=== PATIENT | male | born 1985 | race Caucasian/White ===

== ENCOUNTER → 2022-05-06 07:11 | Outpatient (CLI) | payer BC, SELFPAY ==
[2022-05-06 07:55] LABS: Basophils # 0.1 K/mm3 (0-0.2); Basophils % 1.4 % (0.1-2.0); Eosinophils # 0.1 K/mm3 (0.0-0.4); Hematocrit 47.7 % (42.0-52.0); Hemoglobin 15.4 g/dL (14.1-18.0); Lymphocytes # 1.1 K/mm3 (0.7-4.5); Lymphocytes % 21.4 % (10-50); Mean Corpuscular HGB Conc 32.3 g/dL (31.8-35.4); Mean Corpuscular Hemoglobin 27.7 pg (27.0-31.2); Mean Corpuscular Volume 85.7 fl (80-94); Mean Platelet Volume 7.2 fl (7.4-10.4); Monocytes # 0.3 K/mm3 (0.1-1.0); Monocytes % 5.3 % (1.7-9.3); Neutrophils # 3.8 K/mm3 (1.8-7.8); Platelet Count 311 K/mm3 (142-424); Red Blood Count 5.56 M/mm3 (4.60-6.20); Red Cell Distribution Width 13.9 % (11.5-17.5); White Blood Count 5.4 K/mm3 (4.8-10.8)
[2022-05-06 09:01] LABS: Alanine Aminotransferase 60 U/L (12-78); Albumin Level 4.3 g/dl (3.5-5.0); Albumin/Globulin Ratio 1.5 (1.1-1.8); Alkaline Phosphatase 65 U/L (38-126); Anion Gap 13.1 mEq/L (5-15); Aspartate Amino Transferase 33 U/L (17-59); Bilirubin,Total 0.4 mg/dl (0.2-1.3); Blood Urea Nitrogen 14 mg/dl (9-20); Calcium 8.7 mg/dl (8.4-10.2); Carbon Dioxide 25 mmol/L (22.0-30.0); Chloride 106 mmol/L (98-107); Estimated Glomerular Filt Rate 109 ml/min (>60); GFR (African American) 132 ML/MIN (>60); Globulin 2.8 g/dL (1.3-3.2); Glucose 137 mg/dl (74-100); Potassium 4.1 mmoL/L (3.5-5.1); Sodium 140 mmol/L (136-145); Total Protein,Serum 7.1 g/dl (6.3-8.2)
[2022-05-06 09:18] LABS: Free Thyroxine Index 2.8 ug/dL (5.93-13.13); T4 (Thyroxine) 8.8 ug/dl (5.53-11.0); Triiodothryronine (T3) Uptake 32 % (23.5-40.5)
[2022-05-06 10:59] LABS: Thyroid Stimulating Hormone 1.44 uIU/mL (0.465-4.68)
== END ==
PROVIDERS: PCP Internal Medicine Adolescent Medicine; Visit Provider Internal Medicine Adolescent Medicine
DX: R42 Dizziness and giddiness (principal); I16.0 Hypertensive urgency; R61 Generalized hyperhidrosis
CPT/HCPCS: 36415; 80053; 82533; 84436; 84443; 84479; 85025

== ENCOUNTER 2022-11-07 17:23 | Emergency (ER) | payer BC, SELFPAY ==
[2022-11-07 17:24] VITALS: BP 183/114; PULSE 80; RESP 17; TEMP 36.4; O2SAT 95; BMI 38.6
--- NOTE | 2022-11-07 17:36 | XR_ITS ---
PROCEDURE INFORMATION: Exam: XR Left Wrist Exam date and time: 11/07/2022 5:56 PM Age: 37 years old Clinical indication: Injury or trauma; Fall; Blunt trauma (contusions or hematomas); Wrist; Left; Additional info: Pain TECHNIQUE: Imaging protocol: Radiologic exam of the left wrist. Views: 3 or more views. COMPARISON: No relevant prior studies available. FINDINGS: Bones/joints: Mild degenerative changes of scaphoid multangular joint. Mild degenerative changes of radiocarpal joint. No acute cortical disruption. Normal bony density. Soft tissues: Normal. IMPRESSION: No acute radiographic findings identified.
--- NOTE | 2022-11-07 17:45 | EXP.UTC ---
Discharge Plan Disposition Patient Disposition: Home, Self-Care Condition: Good Referrals Follow up/Referrals: Martinez Sinha JR, MD [Physician] - See instructions Fortino Hussein MD [Primary Care Provider] - See instructions Activity Restrictions/Add. Instructions Additional Instructions/Restrictions: Rest the extremity, apply ice for 15 minutes as tolerated three or four times per day, Wear the lance wrap for compression, Elevate the extremity as tolerated while you are resting. Take ibuprofen for pain. Follow up with Dr. Sinha (orthopedics). I put in a referral but you need to call his office and schedule an appointment. Follow up with your regular doctor. GO TO THE ER FOR ANY WORSENING SYMPTOMS Clinical Impressions Clinical Impression: Right wrist sprain Instructions Patient Instructions: Wrist Sprain, DI for Wrist Sprain, How to Apply an Elastic Wrap on Wrist Discharge ED Provider: Alessandro Lopez [facility] General Stated complaint: AO7/15 Lt wrist injury Mode of Arrival: Ambulatory Source of Information: Patient Limitations: No Limitations Time Seen by Provider: 11/07/22 17:45 Description of Symptoms (Recalled from Triage Doc. by RN): Patient reports hurting his left wrist while playing ball last night. HEENT Symptoms (Recalled from RN notes): No Resp Symptoms (Recalled from RN notes): No Skin Symptoms (Recalled from RN notes): No MS Symptoms (Recalled from RN notes): Yes Functional Status (Recalled from RN notes): wnl History of Present Illness Provider Complaint: He states that earlier today he was playing soft ball and slid into a base. Some how he got his right wrist twisted under him while doing this. He has had right wrist pain since then. Flexing the wrist makes his pain worse. Related Data Allergies Allergy/AdvReac Type Severity Reaction Status Date / Time No Known Allergies Allergy Unverified 05/07/19 08:36 Worker's Comp Is this a Worker's Comp case?: No [facility] Disclaimer: The information contained in this section may have been updated after the patient was seen, as this information can be updated by other users. Social History Smoking Status: Current every day smoker tobacco type: cigarettes alcohol intake: never current occupational status: employed Travel in the last 8 weeks: None ROS Obtained: Yes All systems reviewed & no additional complaints except as documented Constitutional Constitutional: Denies chills and Denies fever(s) Eyes Eyes: Denies eye discharge ENT Ears, Nose, Mouth, and Throat: Denies dizziness, Denies otalgia and Denies sore throat Cardiovascular Cardiovascular: Denies chest pain Respiratory Respiratory: Denies shortness of breath, Denies chest congestion, Denies cough, Denies stridor and Denies wheezing Gastrointestinal Gastrointestingal: Denies nausea or vomiting Musculoskeletal Musculoskeletal: Reports as per HPI Integumentary/Breasts Skin/Breast: Denies rash Neurologic Neurologic: Denies dizziness and Denies paresthesias Allergic/Immunologic Allergic/Immunologic: Denies wheezing Physical Exam General General appearance: alert and in no apparent distress Head Head exam: atraumatic, normocephalic and normal inspection Eye Eye exam: Present normal appearance, PERRL and EOMI ENT ENT exam: Present normal exam, normal oropharynx, mucous membranes moist, TM's normal bilaterally and normal external ear exam Neck Neck exam: Present normal inspection, full ROM and trachea midline; Absent meningismus or lymphadenopathy Chest Chest inspection: Present normal inspection and symmetric chest wall rise; Absent tenderness Respiratory Respiratory exam: Present normal lung sounds bilaterally; Absent respiratory distress Cardiovascular Cardiovascular exam: Present regular rate and normal rhythm; Absent JVD Abdominal Exam Abdominal exam: Present soft and normal bowel sounds; Absent distention, tenderness or guarding Extremities Exam Extremities exam:
[2022-11-07 18:30] VITALS: BP 183/114; PULSE 80; RESP 17; TEMP 36.4; O2SAT 95
== END 2022-11-07 18:31 | disposition home or self-care (01) ==
PROVIDERS: Emergency Provider Nurse Practitioner Family; PCP Internal Medicine Adolescent Medicine
DX: S63.502A Unspecified sprain of left wrist, initial encounter (principal); F17.210 Nicotine dependence, cigarettes, uncomplicated; Y93.69 Activity, other involving other sports and athletics played as a team or group; X50.1XXA Overexertion from prolonged static or awkward postures, initial encounter
CPT/HCPCS: 73110; 99204; 99212; G0463

== ENCOUNTER 2023-07-12 09:13 | Emergency (ER) | payer BC, SELFPAY ==
[2023-07-12 09:40] VITALS: BP 144/84; PULSE 87; RESP 18; TEMP 36.8; O2SAT 98; BMI 37.5
--- NOTE | 2023-07-12 09:45 | PC.NURSE ---
Sent rapid to lab via tube
[2023-07-12 09:46] LABS: Coronavirus 19, PCR Not Detected (NotDetected); Influenza A, PCR Not Detected (NotDetected); Influenza B, PCR Not Detected (NotDetected)
--- NOTE | 2023-07-12 09:48 | ED_ITS ---
Discharge Plan Disposition Patient Disposition: Home, Self-Care Condition: Good Prescriptions Prescriptions: No Action hydrochlorothiazide 50 mg tablet 50 mg PO DAILY Patient Comments: TAKE 1 TABLET BY MOUTH ONCE DAILY lisinopril 40 mg tablet 40 mg PO DAILY Patient Comments: TAKE 1 TABLET BY MOUTH TWICE DAILY Referrals Follow up/Referrals: Fortino Hussein MD [Primary Care Provider] - See instructions Activity Restrictions/Add. Instructions Additional Instructions/Restrictions: Drink plenty of fluids. Take tylenol for pain or fever. Return if you begin to have difficulty breathing. Follow up with your regular doctor. GO TO THE ER FOR ANY WORSENING SYMPTOMS Clinical Impressions Clinical Impression: Acute viral syndrome, Exposure to 2019 novel coronavirus, Exposure to influenza Stand Alone Forms Stand Alone Forms: Work/School Release Instructions Patient Instructions: Coronavirus Disease 2019, Preventing the Spread of Coronavirus Discharge Instructions Discharge ED Provider: Alessandro Lopez [facility] General Stated complaint: congestion, weak Mode of Arrival: Ambulatory Source of Information: Patient Limitations: No Limitations Time Seen by Provider: 07/12/23 09:47 Description of Symptoms (Recalled from Triage Doc. by RN): Pt was exposed and want to be tested for covid, and flu. HEENT Symptoms (Recalled from RN notes): Yes Resp Symptoms (Recalled from RN notes): No Skin Symptoms (Recalled from RN notes): No MS Symptoms (Recalled from RN notes): No Functional Status (Recalled from RN notes): n/a Related Data Home Medications Medication Instructions Recorded Confirmed hydrochlorothiazide 50 mg tablet 50 mg PO DAILY 07/12/23 07/12/23 lisinopril 40 mg tablet 40 mg PO DAILY 07/12/23 07/12/23 Allergies Allergy/AdvReac Type Severity Reaction Status Date / Time No Known Allergies Allergy Verified 07/12/23 09:44 Worker's Comp Is this a Worker's Comp case?: No [facility] Disclaimer: The information contained in this section may have been updated after the patient was seen, as this information can be updated by other users. Social History Smoking Status: Current every day smoker tobacco type: cigarettes alcohol intake: never current occupational status: employed Travel in the last 8 weeks: None ROS Obtained: Yes All systems reviewed & no additional complaints except as documented Constitutional Constitutional: Reports chills and Reports fever(s) Eyes Eyes: Denies eye discharge ENT Ears, Nose, Mouth, and Throat: Reports as per HPI Cardiovascular Cardiovascular: Denies chest pain Respiratory Respiratory: Denies chest congestion and Reports cough Gastrointestinal Gastrointestingal: Reports nausea; Denies abdominal pain, constipation, cramp ing, diarrhea or vomiting Musculoskeletal Musculoskeletal: Denies arthralgias Integumentary/Breasts Skin/Breast: Denies rash Neurologic Neurologic: Denies paresthesias Physical Exam General General appearance: alert and in no apparent distress Head Head exam: atraumatic, normocephalic and normal inspection Eye Eye exam: Present normal appearance, PERRL and EOMI ENT ENT exam: Present normal exam, normal oropharynx, mucous membranes moist, TM's normal bilaterally and normal external ear exam Neck Neck exam: Present normal inspection, full ROM and trachea midline; Absent meningismus or lymphadenopathy Chest Chest inspection: Present normal inspection and symmetric chest wall rise; Absent tenderness Respiratory Respiratory exam: Present normal lung sounds bilaterally; Absent respiratory distress Cardiovascular Cardiovascular exam: Present regular rate and normal rhythm; Absent JVD Abdominal Exam Abdominal exam: Present soft and normal bowel sounds; Absent distention, tenderness or guarding Extremities Exam Extremities exam: Present normal inspection, full ROM and normal capillary refill; Absent calf tenderness Back Exam Back exam: Present normal inspection; Absent tenderness Neurological Exam Neurological exam: Present alert and oriented X3 Psychiatric Psychiatric exam: Present normal affect and normal mood Skin Skin exam: Present warm, dry, intact and normal color Lymphatic Lymphatic Findings: no adenopathy Medical Decision Making Medical Records Medical records reviewed: No I reviewed the patient's medical records. Angel Inquiry Pt receiving controlled substance: No Vital Signs: 07/12/23 09:40 Temperature 98.3 F Temperature Source Oral Pulse Rate [Right Radial] 87 Respiratory Rate 18 Blood Pressure [Right Arm] 144/84 H Blood Pressure Mean [Right Arm] 104 Blood Pressure Source [Right Arm] Automatic Cuff Blood Pressure Position [Right Arm] Sitting 02 Sat by Pulse Oximetry 98 Oxygen Delivery Method Room Air Lab Data Lab results reviewed: Yes I reviewed the patient's lab results. Orders (Tests/Meds): ORDERS Category Date Time Status Rapid PCR Covid and Flu A/B Stat Lab 07/12/23 09:34 Received
[2023-07-12 10:02] LABS: UTC Influenza A Antigen Negative (Negative)
[2023-07-12 10:03] LABS: UTC Influenza B Antigen Negative (Negative)
[2023-07-12 10:13] VITALS: BP 144/84; PULSE 87; RESP 18; TEMP 36.8; O2SAT 98
== END 2023-07-12 10:12 | disposition home or self-care (01) ==
PROVIDERS: Emergency Provider Nurse Practitioner Family; PCP Internal Medicine Adolescent Medicine
DX: B34.9 Viral infection, unspecified (principal); R09.81 Nasal congestion; R53.1 Weakness; F17.210 Nicotine dependence, cigarettes, uncomplicated
CPT/HCPCS: 87636; 87804; 99212; 99213; G0463

== ENCOUNTER 2024-01-14 10:25 | Emergency (ER) | payer BC, SELFPAY ==
[2024-01-14 10:50] VITALS: BP 162/109; PULSE 84; RESP 16; TEMP 36.9; O2SAT 96; BMI 37.8
--- NOTE | 2024-01-14 10:54 | ED_ITS ---
Discharge Plan Disposition Patient Disposition: Home, Self-Care Condition: Good Prescriptions Prescriptions: New azithromycin [Zithromax] 250 mg tablet 250 mg PO UD DOSE PK Qty: 6 0RF Rx Instructions: Take two (2) tablets today, then one (1) tablet days #2 thru #5 benzonatate 100 mg capsule 100 mg PO TIDP PRN (Reason: Cough) Qty: 30 0RF methylprednisolone 4 mg Tablets,Dose Pack 4 mg PO DIRECTED 6 Days Qty: 21 0RF Rx Instructions: Take 1 pack as directed for 6 days No Action hydrochlorothiazide 50 mg tablet 50 mg PO DAILY Patient Comments: TAKE 1 TABLET BY MOUTH ONCE DAILY lisinopril 40 mg tablet 40 mg PO DAILY Patient Comments: TAKE 1 TABLET BY MOUTH TWICE DAILY azithromycin [Zithromax] 250 mg tablet 250 mg PO UD DOSE PK Qty: 6 0RF Rx Instructions: Take two (2) tablets today, then one (1) tablet days #2 thru #5 methylprednisolone 4 mg Tablets,Dose Pack 4 mg PO DIRECTED 6 Days Qty: 21 0RF Rx Instructions: Take 1 pack as directed for 6 days Referrals Follow up/Referrals: Fortino Hussein MD [Primary Care Provider] - See instructions Activity Restrictions/Add. Instructions Additional Instructions/Restrictions: Drink plenty of fluids. Take tylenol or ibuprofen for pain or fever. Take the medications as directed. Follow up with your regular doctor. GO TO THE ER FOR ANY WORSENING SYMPTOMS Clinical Impressions Clinical Impression: Sinusitis Instructions Patient Instructions: Sinusitis, DI for Sinusitis Print Language Print Language: Icelandic Discharge ED Provider: Alessandro Lopez [facility] General Stated complaint: sinus pressure, headache, cough Mode of Arrival: Ambulatory Source of Information: Patient Limitations: No Limitations Time Seen by Provider: 01/14/24 10:54 Description of Symptoms (Recalled from Triage Doc. by RN): Reports congestion, cough, headache, and weakness. HEENT Symptoms (Recalled from RN notes): Yes Resp Symptoms (Recalled from RN notes): No Skin Symptoms (Recalled from RN notes): No MS Symptoms (Recalled from RN notes): No Functional Status (Recalled from RN notes): wnl Related Data Home Medications ?Medication ?Instructions ?Recorded ?Confirmed hydrochlorothiazide 50 mg tablet 50 mg PO DAILY 07/12/23 07/12/23 lisinopril 40 mg tablet 40 mg PO DAILY 07/12/23 07/12/23 Previous Rx's ?Medication ?Instructions ?Recorded azithromycin 250 mg tablet 250 mg PO UD DOSE PK #6 tabs 07/12/23 (Zithromax) methylprednisolone 4 mg tablets in 4 mg PO DIRECTED 6 days #21 tabs 07/12/23 a dose pack azithromycin 250 mg tablet 250 mg PO UD DOSE PK #6 tabs 01/14/24 (Zithromax) benzonatate 100 mg capsule 100 mg PO TIDP PRN Cough #30 caps 01/14/24 methylprednisolone 4 mg tablets in 4 mg PO DIRECTED 6 days #21 tabs 01/14/24 a dose pack Allergies Allergy/AdvReac Type Severity Reaction Status Date / Time No Known Allergies Allergy Verified 07/12/23 09:44 Worker's Comp Is this a Worker's Comp case?: No PFSH PENDING SALE TO [facility] Disclaimer: The information contained in this section may have been updated after the patient was seen, as this information can be updated by other users. Social History Smoking Status: Current every day smoker tobacco type: cigarettes alcohol intake: never current occupational status: employed Travel in the last 8 weeks: None ROS Obtained: Yes All systems reviewed & no additional complaints except as documented Constitutional Constitutional: Reports poor appetite Eyes Eyes: Reports system reviewed and no additional complaints, except as documented ENT Ears, Nose, Mouth, and Throat: Reports as per HPI Cardiovascular Cardiovascular: Reports system reviewed and no additional complaints, except as documented and Denies chest pain Respiratory Respiratory: Denies shortness of breath, Denies chest congestion, Reports cough, Denies stridor and Denies wheezing Gastrointestinal Gastrointestingal: Reports system reviewed and no additional complaints, except as documented; Denies abdominal pain, diarrhea or vomiting Musculoskeletal Musculoskeletal: Reports system reviewed and no additional complaints, except as documented and Denies arthralgias Integumentary/Breasts Skin/Breast: Reports system reviewed and no additional complaints, except as documented and Denies rash Neurologic Neurologic: Denies paresthesias Allergic/Immunologic Allergic/Immunologic: Denies wheezing Physical Exam General General appearance: alert and in no apparent distress Eye Eye exam: Present normal appearance, PERRL and EOMI ENT ENT exam: Present mucous membranes moist and normal external ear exam Expanded ENT Exam External ear exam: Present normal external inspection TM/Canal exam: Bilateral TM: erythema and bulging Nose exam: Absent sinus tenderness Nasal speculum exam: Bilateral: normal Mouth exam: Present normal external inspection; Absent drooling Teeth exam: Present normal inspection Throat exam: Present tonsillar erythema and tonsillomegaly Neck Neck exam: Present normal inspection, full ROM and trachea midline; Absent tenderness, lymphadenopathy or thyromegaly Chest Chest inspection: Present normal inspection and symmetric chest wall rise; Absent tenderness or rash Respiratory Respiratory exam: Present normal lung sounds bilaterally; Absent respiratory distress, wheezes, stridor or accessory muscle use Cardiovascular Cardiovascular exam: Present regular rate, normal rhythm and normal heart sounds Abdominal Exam Abdominal exam: Present soft; Absent distention, tenderness, guarding, rebound or rigidity Extremities Exam Extremities exam: Present normal inspection, full ROM and normal capillary refill; Absent tenderness or calf tenderness Back Exam Back exam: Present normal inspection and full ROM; Absent tenderness Neurological Exam Neurological exam: Present alert and oriented X3 Psychiatric Psychiatric exam: Present normal affect and normal mood Skin Skin exam: Present warm, dry, intact and normal color Lymphatic Lymphatic Findings: no adenopathy Medical Decision Making Medical Records Medical records reviewed: No I reviewed the patient's medical records. Screening: Per USPSTF and CDC recommendations, given the prevalence of disease in our region, it is our hospital?s policy to screen for HIV and viral Hepatitis for all patients aged 18 and over and those with ongoing risk factors. Angel Inquiry Pt receiving controlled substance: No Vital Signs: 01/14/24 10:50 Temperature 98.4 F Temperature Source Oral Pulse Rate [Radial] 84 Respiratory Rate 16 Blood Pressure [Right Arm] 162/109 H Blood Pressure Mean [Right Arm] 126 Blood Pressure Source [Right Arm] Automatic Cuff Blood Pressure Position [Right Arm] Sitting 02 Sat by Pulse Oximetry 96 Oxygen Delivery Method Room Air
[2024-01-14 11:30] VITALS: BP 162/109; PULSE 84; RESP 16; TEMP 36.9; O2SAT 96
== END 2024-01-14 11:31 | disposition home or self-care (01) ==
PROVIDERS: Emergency Provider Nurse Practitioner Family; PCP Internal Medicine Adolescent Medicine
DX: J01.90 Acute sinusitis, unspecified (principal); R51.9 Headache, unspecified; R05.9 Cough, unspecified; R09.81 Nasal congestion; R53.1 Weakness; F17.210 Nicotine dependence, cigarettes, uncomplicated
CPT/HCPCS: 99212; 99214; G0463

== ENCOUNTER 2024-09-24 18:40 | Emergency (ER) | payer SELFPAY ==
[2024-09-24] VITALS (13 sets, daily range): BP systolic 149–198; BP diastolic 94–124; PULSE 72–93; RESP 16–18; TEMP 36.6–37.2; O2SAT 95–98; BMI 38.9
[2024-09-24 19:03] LABS: Basophils % 0.3 % (0.1-2.0); Eosinophils # 0.1 Kmm3 (0.0-0.4); Eosinophils % 1.5 % (0.1-12.0); Hemoglobin 14.4 g/dL (14.1-18.0); Immature Granulocytes # 0.03 10^3uL; Immature Granulocytes % 0.3 %; Lymphocytes # 1.7 K/mm3 (0.7-4.5); Mean Corpuscular HGB Conc 34.3 g/dL (31.8-35.4); Mean Corpuscular Hemoglobin 27.8 pg (27.0-31.2); Mean Corpuscular Volume 81.1 fl (80-94); Mean Platelet Volume 8.4 fl (7.4-10.4); Monocytes # 0.4 K/mm3 (0.1-1.0); Monocytes % 4.9 % (1.7-9.3); Neutrophils # 6.5 K/mm3 (1.8-7.8); Nucleated Red Blood Cells # 0 10^3/uL; Nucleated Red Blood Cells % 0 %; Platelet Count 286 K/mm3 (142-424); Red Blood Count 5.18 M/mm3 (4.60-6.20); Red Cell Distribution Width 12.5 % (11.5-17.5); Red Cell Distribution Width-SD 36.6 fL; White Blood Count 8.8 K/mm3 (4.8-10.8)
[2024-09-24 19:14] LABS: Alanine Aminotransferase 53 U/L (12-78); Albumin Level 4.4 g/dl (3.5-5.0); Albumin/Globulin Ratio 1.4 (1.1-1.8); Alkaline Phosphatase 66 U/L (38-126); Anion Gap 10.6 mEq/L (5-15); Aspartate Amino Transferase 34 U/L (17-59); Bilirubin,Total 0.4 mg/dl (0.2-1.3); Blood Urea Nitrogen 17 mg/dl (9-20); Calcium 8.8 mg/dl (8.4-10.2); Carbon Dioxide 27 mmol/L (22.0-30.0); Chloride 104 mmol/L (98-107); Creatinine Clearance Estimated 237 mL/min (50-200); Estimated Glomerular Filt Rate 108 ml/min (>60); GFR (African American) 131 ML/MIN (>60); Globulin 3.2 g/dL (1.3-3.2); Glucose 149 mg/dl (74-100); Potassium 3.6 mmoL/L (3.5-5.1); Sodium 138 mmol/L (136-145); Total Protein,Serum 7.6 g/dl (6.3-8.2)
--- NOTE | 2024-09-24 19:45 | ECG_ITS ---
APPROVED REPORT Exam: Resting ECG HR:81 bpm ECG Measurements Heart Rate 81 AXES NV 209 P 59 QRSd 101 QRS 40 QT 387 T 53 QTc 424 Conclusion SINUS RHYTHM NORMAL ECG Electronically signed by : [place] JETER, 09/24/2024 23:29:45
--- NOTE | 2024-09-24 19:54 | ED_ITS ---
Discharge Plan Disposition Patient Disposition: Home, Self-Care Condition: Good Prescriptions Prescriptions: No Action azithromycin [Zithromax] 250 mg tablet 250 mg PO UD DOSE PK Qty: 6 0RF Rx Instructions: Take two (2) tablets today, then one (1) tablet days #2 thru #5 benzonatate 100 mg capsule 100 mg PO TIDP PRN (Reason: Cough) Qty: 30 0RF methylprednisolone 4 mg Tablets,Dose Pack 4 mg PO DIRECTED 6 Days Qty: 21 0RF Rx Instructions: Take 1 pack as directed for 6 days hydrochlorothiazide 50 mg tablet 50 mg PO DAILY Patient Comments: TAKE 1 TABLET BY MOUTH ONCE DAILY lisinopril 40 mg tablet 40 mg PO DAILY Patient Comments: TAKE 1 TABLET BY MOUTH TWICE DAILY azithromycin [Zithromax] 250 mg tablet 250 mg PO UD DOSE PK Qty: 6 0RF Rx Instructions: Take two (2) tablets today, then one (1) tablet days #2 thru #5 methylprednisolone 4 mg Tablets,Dose Pack 4 mg PO DIRECTED 6 Days Qty: 21 0RF Rx Instructions: Take 1 pack as directed for 6 days Referrals Follow up/Referrals: Fotrino Hussein MD [Primary Care Provider, Internal Medicine] - See instructions Activity Restrictions/Add. Instructions Additional Instructions/Restrictions: As we discussed please keep your appointment with Dr. Hussein tomorrow. I recommend taking Tylenol alternating with ibuprofen for your headache. If you have any persistent new or worsening signs or symptoms follow-up sooner with your PCP return to the ER as Clinical Impressions Clinical Impression: Uncontrolled hypertension Headache Qualifiers: Headache type: unspecified Headache chronicity pattern: acute headache I ntractability: not intractable Qualified Code(s): R51.9 - Headache, unspecified Print Language Print Language: Slovenian Discharge ED Provider: Amos Booth General Adult HPI <SAULO Land - Last Filed: 09/24/24 21:42> General Chief complaint: Headache Stated complaint: BHATT,sweating,HBP Time Seen by Provider: 09/24/24 19:54 Mode of Arrival: Ambulatory Description of Symptoms (Recalled from ER Triage Doc. by RN): pt to the ED with intermitten headache and hot flashes x 3 days that usually correlates with his HTN in the past. pt reports he is currently taking two medications for HTN and has been complient. pt denies any SOB or chest pain at this time History of Present Illness HPI narrative: Patient presents for evaluation of headache. Patient states that he has had a intermittent headache over the last 3 days. Patient states that he does have a history of high blood pressure and that he notices that he might get headaches symptoms if his blood pressure is high. He is compliant with his home regimen which includes hydrochlorothiazide along with lisinopril. He attempted to see his PCP and has appointment in the morning however he was told to come to the ER by his PCPs office for evaluation. He denies any nausea vomiting diarrhea change in mental status any focal neurologic deficits neck pain C-spine tenderness chest pain shortness of breath fever chills hemoptysis hematochezia melena hematemesis subjective fever cough congestion sore throat. Related Data Home Medications ?Medication ?Instructions ?Recorded ?Confirmed hydrochlorothiazide 50 mg tablet 50 mg PO DAILY 07/12/23 lisinopril 40 mg tablet 40 mg PO DAILY 07/12/2306/23 Previous Rx's ?Medication ?Instructions ?Recorded azithromycin 250 mg tablet 250 mg PO UD DOSE PK #6 tab s 07/12/23 (Zithromax) methylprednisolone 4 mg tablets in 4 mg PO DIRECTED 6 days #21 tabs 07/12/23 a dose pack azithromycin 250 mg tablet 250 mg PO UD DOSE PK #6 tab s 01/14/24 (Zithromax) benzonatate 100 mg capsule 100 mg PO TIDP PRN Cough #3 0 caps 01/14/24 methylprednisolone 4 mg tablets in 4 mg PO DIRECTED 6 days #21 tabs 01/14/24 a dose pack Allergies Allergy/AdvReac Type Severity Reaction Status Date / Time No Known Allergies Allergy Verified 07/12/23 09:44 [facility] <SAULO Land - Last Filed: 09/24/24 21:42> [facility] Disclaimer: The information contained in this section may have been updated after the patient was seen, as this information can be updated by other users. Social History Smoking Status: Never smoker alcohol intake: never current occupational status: employed Travel in the last 8 weeks?: None Have you lived/traveled outside [place] in past 30 days?: No Contact w/someone who lives/traveled outside US past 30 days?: No Exposure to someone with infectious disease in past 14 days?: No Do you have a fever (greater than 100.4 F or 38 C)?: No Have you tested positive for COVID-19?: No Exposed to someone with COVID-19 in past 14 days?: No Do you have a sore throat?: No Do you have a cough?: No Do you have any weakness?: No Do you have any diarrhea?: No Are you experiencing any unusual bleeding?: No Do you have any muscle aches/pain?: No Do you have any abdominal pain?: No Are you experiencing loss of taste or smell?: No <SAULO Land - Last Filed: 09/24/24 21:42> ROS Obtained: Yes Systems reviewed as appropriate & no additional complaints except as documented Physical Exam <SAULO Land - Last Filed: 09/24/24 21:42> General General appearance: alert and in no apparent distress Respiratory Respiratory exam: Present normal lung sounds bilaterally Cardiovascular Cardiovascular exam: Present regular rate and normal heart sounds Neurological Exam Neurological exam: Present alert and oriented X3 Medical Decision Making <SAULO Land - Last Filed: 09/24/24 21:42> Medical Records Medical records reviewed: Yes I reviewed the patient's medical records. Screening: Per USPSTF and CDC recommendations, given the prevalence of disease in our region, it is our hospital?s policy to screen for HIV and viral Hepatitis for all patients aged 18 and over and those with ongoing risk factors. Angel Inquiry Pt receiving controlled substance: No Vital Signs: 09/24/24 18:50 09/24/24 19:45 09/24/24 20:01 Temperature 98.6 F 97.9 F Temperature Source Oral Oral Pulse Rate 88 89 Pulse Rate [Left Radial] 88 Respiratory Rate 17 16 Blood Pressure 156/101 H 168/102 H Blood Pressure [Right Arm] 181/105 H Blood Pressure Mean [Right Arm] 130 Blood Pressure Source [Right Arm] Automatic Cuff Blood Pressure Position Blood Pressure Position [Right Arm] Sitting 02 Sat by Pulse Oximetry 98 96 96 Oxygen Delivery Method Room Air Room Air 09/24/24 20:30 09/24/24 20:32 09/24/24 20:39 Temperature Temperature Source Pulse Rate 78 86 80 Pulse Rate [Left Radial] Respiratory Rate Blood Pressure 181/124 H 176/114 H 178/110 H Blood Pressure [Right Arm] Blood Pressure Mean [Right Arm] Blood Pressure Source [Right Arm] Blood Pressure Position Blood Pressure Position [Right Arm] 02 Sat by Pulse Oximetry 96 96 97 Oxygen Delivery Method 09/24/24 20:50 09/24/24 20:53 09/24/24 20:58 Temperature Temperature Source Pulse Rate 85 93 H 83 Pulse Rate [Left Radial] Respiratory Rate Blood Pressure 198/110 H 176/112 H 152/108 H Blood Pressure [Right Arm] Blood Pressure Mean [Right Arm] Blood Pressure Source [Right Arm] Blood Pressure Position Blood Pressure Position [Right Arm] 02 Sat by Pulse Oximetry 97 96 96 Oxygen Delivery Method 09/24/24 21:00 09/24/24 21:28 09/24/24 21:30 Temperature Temperature Source Pulse Rate 72 83 77 Pulse Rate [Left Radial] Respiratory Rate Blood Pressure 150/98 H 149/94 H 158/98 H Blood Pressure [Right Arm] Blood Pressure Mean [Right Arm] Blood Pressure Source [Right Arm] Blood Pressure Position Blood Pressure Position [Right Arm] 02 Sat by Pulse Oximetry 96 96 96 Oxygen Delivery Method 09/24/24 21:48 Temperature 98.9 F Temperature Source Oral Pulse Rate 83 Pulse Rate [Left Radial] Respiratory Rate 18 Blood Pressure 158/98 H Blood Pressure [Right Arm] Blood Pressure Mean [Right Arm] Blood Pressure Source [Right Arm] Blood Pressure Position Sitting Blood Pressure Position [Right Arm] 02 Sat by Pulse Oximetry Oxygen Delivery Method Room Air Lab Data Lab results reviewed: Yes I reviewed the patient's lab results. Lab Results 09/24/24 18:56: WBC 8.8, RBC 5.18, Hgb 14.4, Hct 42.0, MCV 81.1, MCH 27.8, MCHC 34.3, RDW 12.5, Plt Count 286, MPV 8.4, Neut % (Auto) 74.0, Lymph % (Auto) 19.0, [place] % (Auto) 4.9, Eos % (Auto) 1.5, Baso % (Auto) 0.3, Neut # (Auto) 6.5, Lymph # (Auto) 1.7, [place] # (Auto) 0.4, Eos # (Auto) 0.1, Baso # (Auto) 0.0, Sodium 138, Potassium 3.6, Chloride 104, Carbon Dioxide 27, Anion Gap 10.6, BUN 17, Creatinine 0.80, Estimated Creat Clear 237, Estimated GFR 108, Est GFR ( Amer) 131, Glucose 149 H, Calcium 8.8, Total Bilirubin 0.4, AST 34, ALT 53, Alkaline Phosphatase 66, Total Protein 7.6, Albumin 4.4, Globulin 3.2, Albumin/Globulin Ratio 1.4, HCV Ab HOPE w/Rflx PCR Qn Negative, HIV Ag/Ab Combo Qual Negative 09/24/24 19:05: Hemoglobin A1c 5.5 09/24/24 19:55: Troponin I < 0.01 09/24/24 18:56 09/24/24 18:56 Orders (Tests/Meds): ED MEDICATIONS Discontinued Medications Generic Name Dose Route Start Last Admin Trade Name Freq PRN Reason Stop Dose Admin Acetaminophen 1,000 mg 09/24/24 19:59 09/24/24 20:16 Acetaminophen 500mg Tab PO 09/24/24 20:00 1,000 mg ONCE ONE Administration Dexamethasone Sodium Phosphate 10 mg 09/24/24 19:59 09/24/24 20:17 Dexamethasone 4mg/Ml 5ml Mdv IV 09/24/24 20:00 10 mg ONCE ONE Administration Diphenhydramine HCl 50 mg 09/24/24 19:59 09/24/24 20:17 Diphenhydramine 50mg/Ml Vial IV 09/24/24 20:00 50 mg ONCE ONE Administration Sodium Chloride 1,000 mls @ 999 mls/hr 09/24/24 19:59 09/24/24 20:16 Sod Chlor 0.9% 1000ml Bag IV 09/24/24 20:59 999 mls/hr .Q1H1M ONE Administration Ketorolac Tromethamine 15 mg 09/24/24 19:59 09/24/24 20:17 Ketorolac 30mg/Ml Vial IV 09/24/24 20:00 15 mg ONCE ONE Administration Lisinopril 40 mg 09/24/24 21:40 09/24/24 21:41 Lisinopril 20mg Tablet PO 09/24/24 21:41 40 mg ONCE ONE Administration Methocarbamol 500 mg 09/24/24 19:59 09/24/24 20:16 Methocarbamol 500mg Tablet PO 09/24/24 20:00 500 mg ONCE ONE Administration Ondansetron HCl 4 mg 09/24/24 19:59 09/24/24 20:17 Ondansetron 4mg/2ml Vial IV 09/24/24 20:00 4 mg ONCE ONE Administration ORDERS Category Date Time Status Complete Blood Count Auto Diff Stat Lab 09/24/24 18:56 Completed Comprehensive Metabolic Panel Stat Lab 09/24/24 18:56 Completed HIV Combo Stat Lab 09/24/24 18:56 Completed Hemoglobin A1C Stat Lab 09/24/24 19:05 Completed Hepatitis C Ab Qual. W/ RFX Stat Lab 09/24/24 18:56 Completed Troponin I Stat Lab 09/24/24 19:55 Completed Medical Decision Narrative: In summary patient is a 39-year-old male who presents to the emergency department for evaluation of headache and elevated blood pressure. Patient is hypertensive on arrival with a blood pressure 181/105 heart rate 88 normal sinus rhythm on the bedside monitor breathing 17 times minute satting at 98% on room air upon arrival, afebrile at 90.6. Physical exam is remarkable for a well- nourished well-developed 39-year-old gentleman is currently no acute distress. [place] Coma Score 15 patient is awake alert and oriented person place and circumstance cranial nerves II through XII are intact grossly to exam pupils equal round reactive to light, there is no C-spine tenderness nuchal rigidity or meningeal signs, breath sounds clear to go bilaterally to the base with adventitious sounds abdomen soft nontender no rebound guarding or rigidity. Patient has no focal neurologic deficits is amatory in the ER moves all 4 extremities independently.. Differential diagnosis includes headache versus uncontrolled hypertension and I considered other diagnoses including aneurysm or stroke however patient has no red flags suggesting that this is anything other than his presenting complaint so alternative diagnosis is were not pursued. Initial workup will be conducted with hematologic labs. Initial interventions include crystalloid bolus Tylenol Decadron Benadryl Robaxin and Toradol Zofran. Initial workup reviewed by me shows that his hematologic labs are significant for normal white count normal H&H no neutrophilic shift chemistries only significant for glucose of 149 and the remainder of his hematologic labs are nonactionable.. Upon repeat evaluation patient has had complete resolution of his headache and his blood pressures come down to 158/98. Given this I had a shared decision-making discussion with the patient and I have offered him a dose of lisinopril tonight which she has not taken. Patient via patient direct decision making discharge is agreed and is comfortable following up with his PCP tomorrow as scheduled. <Amos Booth MD - Last Filed: 09/24/24 23:44> Vital Signs: 09/24/24 18:50 09/24/24 19:45 09/24/24 20:01 Temperature 98.6 F 97.9 F Temperature Source Oral Oral Pulse Rate 88 89 Pulse Rate [Left Radial] 88 Respiratory Rate 17 16 Blood Pressure 156/101 H 168/102 H Blood Pressure [Right Arm] 181/105 H Blood Pressure Mean [Right Arm] 130 Blood Pressure Source [Right Arm] Automatic Cuff Blood Pressure Position Blood Pressure Position [Right Arm] Sitting 02 Sat by Pulse Oximetry 98 96 96 Oxygen Delivery Method Room Air Room Air 09/24/24 20:30 09/24/24 20:32 09/24/24 20:39 Temperature Temperature Source Pulse Rate 78 86 80 Pulse Rate [Left Radial] Respiratory Rate Blood Pressure 181/124 H 176/114 H 178/110 H Blood Pressure [Right Arm] Blood Pressure Mean [Right Arm] Blood Pressure Source [Right Arm] Blood Pressure Position Blood Pressure Position [Right Arm] 02 Sat by Pulse Oximetry 96 96 97 Oxygen Delivery Method 09/24/24 20:50 09/24/24 20:53 09/24/24 20:58 Temperature Temperature Source Pulse Rate 85 93 H 83 Pulse Rate [Left Radial] Respiratory Rate Blood Pressure 198/110 H 176/112 H 152/108 H Blood Pressure [Right Arm] Blood Pressure Mean [Right Arm] Blood Pressure Source [Right Arm] Blood Pressure Position Blood Pressure Position [Right Arm] 02 Sat by Pulse Oximetry 97 96 96 Oxygen Delivery Method 09/24/24 21:00 09/24/24 21:28 09/24/24 21:30 Temperature Temperature Source Pulse Rate 72 83 77 Pulse Rate [Left Radial] Respiratory Rate Blood Pressure 150/98 H 149/94 H 158/98 H Blood Pressure [Right Arm] Blood Pressure Mean [Right Arm] Blood Pressure Source [Right Arm] Blood Pressure Position Blood Pressure Position [Right Arm] 02 Sat by Pulse Oximetry 96 96 96 Oxygen Delivery Method 09/24/24 21:48 Temperature 98.9 F Temperature Source Oral Pulse Rate 83 Pulse Rate [Left Radial] Respiratory Rate 18 Blood Pressure 158/98 H Blood Pressure [Right Arm] Blood Pressure Mean [Right Arm] Blood Pressure Source [Right Arm] Blood Pressure Position Sitting Blood Pressure Position [Right Arm] 02 Sat by Pulse Oximetry Oxygen Delivery Method Room Air Lab Data Lab Results 09/24/24 18:56: WBC 8.8, RBC 5.18, Hgb 14.4, Hct 42.0, MCV 81.1, MCH 27.8, MCHC 34.3, RDW 12.5, Plt Count 286, MPV 8.4, Neut % (Auto) 74.0, Lymph % (Auto) 19.0, [place] % (Auto) 4.9, Eos % (Auto) 1.5, Baso % (Auto) 0.3, Neut # (Auto) 6.5, Lymph # (Auto) 1.7, [place] # (Auto) 0.4, Eos # (Auto) 0.1, Baso # (Auto) 0.0, Sodium 138, Potassium 3.6, Chloride 104, Carbon Dioxide 27, Anion Gap 10.6, BUN 17, Creatinine 0.80, Estimated Creat Clear 237, Estimated GFR 108, Est GFR ( Amer) 131, Glucose 149 H, Calcium 8.8, Total Bilirubin 0.4, AST 34, ALT 53, Alkaline Phosphatase 66, Total Protein 7.6, Albumin 4.4, Globulin 3.2, Albumin/Globulin Ratio 1.4, HCV Ab HOPE w/Rflx PCR Qn Negative, HIV Ag/Ab Combo Qual Negative 09/24/24 19:05: Hemoglobin A1c 5.5 09/24/24 19:55: Troponin I < 0.01 Orders (Tests/Meds): ED MEDICATIONS Discontinued Medications Generic Name Dose Route Start Last Admin Trade Name Freq PRN Reason Stop Dose Admin Acetaminophen 1,000 mg 09/24/24 19:59 09/24/24 20:16 Acetaminophen 500mg Tab PO 09/24/24 20:00 1,000 mg ONCE ONE Administration Dexamethasone Sodium Phosphate 10 mg 09/24/24 19:59 09/24/24 20:17 Dexamethasone 4mg/Ml 5ml Mdv IV 09/24/24 20:00 10 mg ONCE ONE Administration Diphenhydramine HCl 50 mg 09/24/24 19:59 09/24/24 20:17 Diphenhydramine 50mg/Ml Vial IV 09/24/24 20:00 50 mg ONCE ONE Administration Sodium Chloride 1,000 mls @ 999 mls/hr 09/24/24 19:59 09/24/24 20:16 Sod Chlor 0.9% 1000ml Bag IV 09/24/24 20:59 999 mls/hr .Q1H1M ONE Administration Ketorolac Tromethamine 15 mg 09/24/24 19:59 09/24/24 20:17 Ketorolac 30mg/Ml Vial IV 09/24/24 20:00 15 mg ONCE ONE Administration Lisinopril 40 mg 09/24/24 21:40 09/24/24 21:41 Lisinopril 20mg Tablet PO 09/24/24 21:41 40 mg ONCE ONE Administration Methocarbamol 500 mg 09/24/24 19:59 09/24/24 20:16 Methocarbamol 500mg Tablet PO 09/24/24 20:00 500 mg ONCE ONE Administration Ondansetron HCl 4 mg 09/24/24 19:59 09/24/24 20:17 Ondansetron 4mg/2ml Vial IV 09/24/24 20:00 4 mg ONCE ONE Administration ORDERS Category Date Time Status Complete Blood Count Auto Diff Stat Lab 09/24/24 18:56 Completed Comprehensive Metabolic Panel Stat Lab 09/24/24 18:56 Completed HIV Combo Stat Lab 09/24/24 18:56 Completed Hemoglobin A1C Stat Lab 09/24/24 19:05 Completed Hepatitis C Ab Qual. W/ RFX Stat Lab 09/24/24 18:56 Completed Troponin I Stat Lab 09/24/24 19:55 Completed Medical Decision Narrative: In summary patient is a 39-year-old male who presents to the emergency department for evaluation of headache and elevated blood pressure. Patient is hypertensive on arrival with a blood pressure 181/105 heart rate 88 normal sinus rhythm on the bedside monitor breathing 17 times minute satting at 98% on room air upon arrival, afebrile at 90.6. Physical exam is remarkable for a well- nourished well-developed 39-year-old gentleman is currently no acute distress. [place] Coma Score 15 patient is awake alert and oriented person place and circumstance cranial nerves II through XII are intact grossly to exam pupils equal round reactive to light, there is no C-spine tenderness nuchal rigidity or meningeal signs, breath sounds clear to go bilaterally to the base with adventitious sounds abdomen soft nontender no rebound guarding or rigidity. Patient has no focal neurologic deficits is amatory in the ER moves all 4 extremities independently.. Differential diagnosis includes headache versus uncontrolled hypertension and I considered other diagnoses including aneurysm or stroke however patient has no red flags suggesting that this is anything other than his presenting complaint so alternative diagnosis is were not pursued. Initial workup will be conducted with hematologic labs. Initial interventions include crystalloid bolus Tylenol Decadron Benadryl Robaxin and Toradol Zofran. Initial workup reviewed by me shows that his hematologic labs are significant for normal white count normal H&H no neutrophilic shift chemistries only significant for glucose of 149 and the remainder of his hematologic labs are nonactionable.. Upon repeat evaluation patient has had complete resolution of his headache and his blood pressures come down to 158/98. Given this I had a shared decision-making discussion with the patient and I have offered him a dose of lisinopril tonight which she has not taken. Patient via patient direct decision making discharge is agreed and is comfortable following up with his PCP tomorrow as scheduled. I was consulted by the RACHNA, and we discussed the complexity of the problems being addressed.I approved the treatment and management plan for this patient?s care in the Emergency Department, thus performing a substantive portion of the medical decision making.Signed, MD IRINEO EvansA Critical Care <SAULO Land - Last Filed: 09/24/24 21:42> Critical Care Time Critical Care Time: No
[2024-09-24] MEDS: ACETAMINOPHEN 500MG TAB 1000 MG PO (20:16)
[2024-09-24] MEDS: 0.9 % SODIUM CHLORIDE 1000ML 1,000 ML 999 ML IV (20:16)
[2024-09-24] MEDS: METHOCARBAMOL 500MG TABLET 500 MG PO (20:16)
[2024-09-24] MEDS: diphenhydrAMINE 50MG/ML VIAL 50 MG IV (20:17)
[2024-09-24] MEDS: KETOROLAC 30MG/ML VIAL 15 MG IV (20:17)
[2024-09-24] MEDS: ONDANSETRON 4MG/2ML VIAL 4 MG IV (20:17)
[2024-09-24] MEDS: DEXAMETHASONE 4MG/ML 5ML MDV 10 MG IV (20:17)
[2024-09-24 20:37] LABS: HIV Combo NEGATIVE (Negative)
[2024-09-24 20:44] LABS: Hepatitis C Ab Qual. W/ RFX NEGATIVE (Negative)
[2024-09-24 21:36] LABS: Troponin I < 0.01 ng/ml (0.00-0.034)
[2024-09-24] MEDS: LISINOPRIL 20MG TABLET 40 MG PO (21:41)
[2024-09-24 21:59] LABS: Hemoglobin A1C 5.5 % (4.0-6.0)
== END 2024-09-24 21:50 | disposition home or self-care (01) ==
PROVIDERS: Physician Assistant; Emergency Provider Emergency Medicine; PCP Internal Medicine Adolescent Medicine
DX: R51.9 Headache, unspecified (principal); I10 Essential (primary) hypertension; Z11.59 Encounter for screening for other viral diseases; Z11.4 Encounter for screening for human immunodeficiency virus [HIV]
CPT/HCPCS: 80053; 83036; 84484; 85025; 86803; 87389; 93005; 96361; 96374; 96375; 99284; J1100; J1200; J1885; J2405; J7030

== ENCOUNTER 2024-10-27 20:20 | Emergency (ER) | payer SELFPAY ==
--- OUTSIDE RECORDS SUMMARY | 2024-07-28 17:30 | XMS_ITS ---
Author Organization Mauricio Patel PE D MELINDA Address [address] [facility] 36 [facility] [address] [place] [address] Care Team Providers Care Glass Grinder Name Role Phone Consuelo Lei Primary Care Provider CONSUELO LEI Unavailable Unavaila ble Migration, Provider Unavailable Unavailable REASON FOR VISIT [facility] To [facility] Conversion Encounter Medications Medication SIG (Take, Route, Frequency, Duration) Notes Start Date End Date Status hydroCHLOROthiazide 50 MG 1 tab(s) orall y once a day; Duration: 30 days Active Lisinopril 40 MG 1 tab(s) orally twic e daily; Duration: 30 days 05/23/2023 Active Methocarbamol 500 MG 1-2 tab(s) orally 3 times a day; Duration: 5 days 10/11/2023 Active Encounters Encounter Location Date Provider Diagnosis [facility] PED MELINDA [address] [facility] 36 [facility] [address] [place] [address] 07/28/2024 Provider Migration HTN (hypertension), benign I10 and Acute right-sided low back pain without sciatica M54.50 Assessments Encounter Date Diagnosis (ICD Code) Assessment Notes Treatment Notes Treatment Clinical Notes Section Notes 07/28/2024 HTN (hypertension), benign (ICD-10 - I10) 07/28/2024 Acute right-sided low back pain without sciatica (ICD-10 - M54.50) Plan Of Treatment Medication Medication Name Sig Start Date Stop Date Notes hydroCHLOROthiazide 50 MG 1 tab(s) orall y once a day; Duration: 30 days Lisinopril 40 MG 1 tab(s) orally twic e daily; Duration: 30 days 05/23/2023 Methocarbamol 500 MG 1-2 tab(s) orally 3 times a day; Duration: 5 days 10/11/2023 Next Appt Details Provider Name:Fortino Hussein, 12/10/2024 04:15:00 PM, [address] [place] [facility] [address], [place], [address], Progress Notes * Wili AUGUSTEDOB:1985 (39 yo M)Acc No.[id number]:07/28/2024 Patient: Wili PEREZ Provider: Nilesh Adame :1985 A ge:39 Y S ex:Male Date:07/28/2024 Address:[address] [place] [address], [id number] Pcp:Consuelo Lei Subjective: * Chief Complaints: * 1 . [facility] Conversion Encounter. * Medical History: Objective: * Vitals: Assessment: * Assessment: 1. A cute right-sided low back pain without sciatica - M54.50 (Primary) 2 .?HTN (hypertension), benign - I10 Plan: * Treatment: 2. H TN (hypertension), benign Refill Lisinopril Tablet, 40 MG, 1 tab(s), orally, twice daily, 30 days, 60, Refills 1. 3. O thers Start hydroCHLOROthiazide Tablet, 50 MG, 1 tab(s), orally, once a day, 30 days, 30, Refills 3. * * Electronic signature of Prov ider Migration on 10/27/2024 at 08:31 PM EDT Sign off status: Pending * Provider: Nilesh uribe Migration Date: 07/28/2024 Generated for Ty easton/Cristina/Luissmitting on: 10/27/2024 08:31 PM EDT
--- OUTSIDE RECORDS SUMMARY | 2024-09-25 05:30 | XMS_ITS ---
Author Organization [facility] D MELINDA Address [address] [place] [address] Care Team Providers Care Security Associate Name Role Phone Maranda Lei Primary Care Provider MARANDA LEI Unavailable Unavaila Fortino Meng Unavailable [phone] Allergies No Known Allergies Results Component Value Reference Range Notes THYROID PANEL WITH TSH (7444 ) Reviewed date:09/26/2024 04:37:01 PM Interpretation: Performing Lab:[facility] [employer] [facility] [place] [employer], [facility] ClinicCisbSJ[address] Amando Schmid Notes/Report: NON-FASTING; NON-FASTING; NON-FASTING; NON-FASTING; NON-FAST T3 UPTAKE 25 22-35 % T4 (THYROXINE), TOTAL 8.3 4.9-10.5 mcg/dL FREE T4 INDEX (T7) 2.1 1.4-3.8 TSH 0.91 0.40-4.50 mIU/L COMPREHENSIVE METABOLIC PANE L (44065) Reviewed date:09/26/2024 04:37:01 PM Interpretation: Performing Lab:[facility] [employer] [facility] [place] [employer], [facility] ClinicVswkDL[address] Amando Schmid Notes/Report: NON-FASTING; NON-FASTING; NON-FASTING; NON-FASTING; NON-FAST GLUCOSE 122 65-99 mg/dL Fasting reference interval For someone without known diabetes, a glucose value between 100 and 125 mg/dL is consistent with prediabetes and should be confirmed with a follow-up test. UREA NITROGEN (BUN) 12 7-25 mg/dL CREATININE 0.76 0.60-1.26 mg/dL EGFR 118 > OR = 60 mL/min/1.73m2 BUN/CREATININE RATIO SEE NOTE: 6-22 (calc) Not Reported: BUN and Creatinine are within reference range. SODIUM 140 135-146 mmol/L POTASSIUM 4.2 3.5-5.3 mmol/L CHLORIDE 104 98-110 mmol/L CARBON DIOXIDE 24 20-32 mmol/L CALCIUM 9.8 8.6-10.3 mg/dL PROTEIN, TOTAL 8.0 6.1-8.1 g/dL ALBUMIN 4.8 3.6-5.1 g/dL GLOBULIN 3.2 1.9-3.7 g/dL (calc) ALBUMIN/GLOBULIN RATIO 1.5 1.0-2.5 (calc) BILIRUBIN, TOTAL 0.3 0.2-1.2 mg/dL ALKALINE PHOSPHATASE 76 36-130 U/L AST 17 10-40 U/L ALT 42 9-46 U/L MAGNESIUM (622) Reviewed date:09/26/2024 04:37:01 PM Interpretation: Performing Lab:[facility] [facility], [employer]AN[address] Amando Schmid Notes/Report: NON-FASTING; NON-FASTING; NON-FASTING; NON-FASTING; NON-FAST MAGNESIUM 2.5 1.5-2.5 mg/dL HEMOGLOBIN A1c (496) Reviewed date:09/26/2024 04:37:01 PM Interpretation: Performing Lab:[facility] [facility] [email or web address] [id number] [employer], Armed[facility]illaFuhvSQ[address] Amando Schmid Notes/Report: NON-FASTING; NON-FASTING; NON-FASTING; NON-FASTING; NON-FAST HEMOGLOBIN A1c 5.8 <5.7 % For someone without known diabetes, a hemoglobin A1c value between 5.7% and 6.4% is consistent with prediabetes and should be confirmed with a follow-up test. For someone with known diabetes, a value <7% indicates that their diabetes is well controlled. A1c targets should be individualized based on duration of diabetes, age, comorbid conditions, and other considerations. This assay result is consistent with an increased risk of diabetes. Currently, no consensus exists regarding use of hemoglobin A1c for diagnosis of diabetes for children. VITAMIN B12/FOLATE, SERUM SAULO PALACIO (7065) Reviewed date:09/26/2024 04:37:01 PM Interpretation: Performing Lab:[facility], [facility] [address], [place] Amando Schmid Notes/Report: NON-FASTING; NON-FASTING; NON-FASTING; NON-FASTING; NON-FAST VITAMIN B12 [phone] pg/mL FOLATE, SERUM 4.3 Reference Range Low: <3.4 Borderline: 3.4-5.4 Normal: >5.4 REASON FOR VISIT high b/p , sweaty , headache , S.o.A, seen at [facility] er last night, labs - is fasting Medications Medication SIG (Take, Route, Frequency, Duration) Notes Start Date End Date Status Lisinopril 40 MG 1 tab(s) orally twic e daily; Duration: 30 days 05/23/2023 Active hydroCHLOROthiazide 50 MG 1 tab(s) orall y once a day; Duration: 30 days Active Propranolol HCl 20 MG 1 tablet Orally Tw ice a day; Duration: 30 day(s) 09/25/2024 Active Vraylar 1.5 MG 1 capsule Orally Onc e a day; Duration: 30 day(s) 09/25/2024 Active Social History Smoking: Question Answer Notes Additional Findings: Tobacco User Chews fine cut tobacco Problems Problem Type SNOMED Code ICD Code Onset Dates Problem Status W/U Status Risk Notes Problem Mood disorder (89896570) Mood disorder (F39) Active confirmed Problem Obese class II ([id number] 05) BMI 37.0-37.9, adult (Z68.37) Active confirmed Vital Signs Temperature 97.9 degrees Fahrenheit 09/26/19 25 Heart Rate 98 /min 09/25/2024 Blood pressure systolic 160 mm Hg 09/26/19 25 Blood pressure diastolic 110 mm Hg 025 Height 6ft 2in in 09/25/2024 Weight 293 lbs 09/25/2024 BMI 37.61 kg/m2 09/25/2024 Encounters Encounter Location Date Provider Diagnosis [address] [address] 09/25/2024 Fortino Hussein Type 2 diabetes mellitus with other circulatory complications E11.59 ; Essential hypertension I10 ; Mood disorder F39 ; Tachycardia R00.0 ; BMI 37.0-37.9, adult Z68.37 and Hospital discharge follow-up Z09 Assessments Encounter Date Diagnosis (ICD Code) Assessment Notes Treatment Notes Treatment Clinical Notes Section Notes 09/25/2024 Type 2 diabetes mellitus with other circulatory complications (ICD-10 - E11.59) Obtain labs today to monitor Diabetes 09/25/2024 Essential hypertension (ICD-10 - I10) Continue current regimen with addition of Propranolol 20 mg twice daily Monitor BP at home 09/25/2024 Mood disorder (ICD-10 - F39) Patient seems anxious on exam today, avoiding eye contact and with pressured speech Patient has been going through social stressors at work, and quit job yesterday He reports trouble with falling asleep each night Initiate Vraylar nightly 09/25/2024 Tachycardia (ICD-10 - R00.0) Obtain labs to rule out other causes of tachycardia Start Propranolol 20 mg twice daily 09/25/2024 BMI 37.0-37.9, adult (ICD-10 - Z68.37) Patient has been actively working to lose weight. 09/25/2024 Hospital discharge follow-up (ICD-10 - Z09) I reviewed ER notes available from emergency department. Reviewed labs, reviewed discharge plan, personally reconciled medication. 09/25/2024 Other Plan Of Treatment Medication Medication Name Sig Start Date Stop Date Notes Propranolol HCl 20 MG 1 tablet Orally Tw ice a day; Duration: 30 day(s) 09/25/2024 Vraylar 1.5 MG 1 capsule Orally Onc e a day; Duration: 30 day(s) 09/25/2024 Treatment Notes Assessment Notes Type 2 diabetes mellitus wit h other circulatory complications Obtain labs today to monitor Diabetes Essential hypertension Continue current regimen with addition of Propranolol 20 mg twice daily Monitor BP at home Mood disorder Patient seems anxious on exam today, avoiding eye contact and with pressured speech Patient has been going through social stressors at work, and quit job yesterday He reports trouble with falling asleep each night Initiate Vraylar nightly Tachycardia Obtain labs to rule out other causes of tachycardia Start Propranolol 20 mg twice daily BMI 37.0-37.9, adult Patient has been ac tively working to lose weight. Hospital discharge follow-up I reviewed ER notes available from emergency department. Reviewed labs, reviewed discharge plan, personally reconciled medication. Next Appt Details Follow Up: prn, Reason: Provider Name:Fortino Hussein, 12/10/2024 04:15:00 PM, [address], [address], [place], [address], Progress Notes * Wili AUGUSTEDOB:1985 (39 yo M)Acc No.[id number]:09/25/2024 Progress Notes Patient: Wili PEREZ Provider: Krishna Hussein MD :1985 A ge:39 Y S ex:Male Date:09/25/2024 Address:[facility] [place] [address], [facility] Pcp:Maranda Lei Subjective: * Chief Complaints: * 1 . high b/p , sweaty , headache , S.o.A. 2. seen at [facility] er last night. 3. Labs - is fasting. * HPI: g en: Mr. Auguste is a 39 year old male presenting to the clinic with elevated blood pressure, diaphoresis, headaches, and shortness of air. He has had a band-like continuous headache for the past 3-4 days as well as more frequent headaches throughout the past few months. He had been using Tylenol and Ibuprofen but this was not helping. W ith these headaches, he has been experiencing sweating and shortness of air. He hasn't been able to check his blood pressure at home with these episodes over the past 2 weeks as his home blood pressure cuff has not been working. He has been taking both his Hydrochlorothiazide and Lisinopril as prescribed without missing any doses. He reported to the ER yesterday for these symptoms and his blood pressure was in 180s/100s. He reports the past few months have been really stressful for him at work. He was getting very little sleep with a new work schedule and has been having a hard time falling asleep. He has had some social stressors at work as well and ended up quitting his job yesterday. He does not smoke or use alcohol, and he has cut down his caffeine intake to one soda/day. He has been working on weight loss by decreasing intake and going to the gym regularly. He has noticed recently his workout have been difficult due to shortness of air. He denies any chest pain, changes in vision, or palpitations. * Medical History: H ypertension, Pre-Diabetes, Pancreas enzyme elevation with GLP. * Surgical History: D enies Past Surgical History. * Hospitalization/Major Diagno stic Procedure: D enies Past Hospitalization. * Family History: F ather: alive, heart disease, hypertension, [place], pacemaker. M other: , diabetes, type I, hypertension, heart disease. P aternal Grand Father: . P aternal Grand Mother: . M aternal Grand Father: . M aternal Grand Mother: . P aternal uncle: alive. P aternal aunt: alive. M aternal aunt: alive, diabetes, hypertension. S iblings: , due to some kind of heart disease - age 37 years. C live: alive, 1 daughter autistic. 1 brother(s) . 1 son(s) , 3 daughter(s) - healthy. . * Social History: S moking: no A dditional Findings: Tobacco User C hews fine cut tobacco. R ecreational drug use: no. Exercise: no. Home smoke detector use: yes. Caffeine: yes, frequency:sodas and tea. Living Will: No. Alcohol: no. Sexually active: yes. Travel outside [place]: no. 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 * Medications: T aking hydroCHLOROthiazide 50 MG Tablet 1 tab(s) orally once a day , Taking Lisinopril 40 MG Tablet 1 tab(s) orally twice daily , Discontinued Methocarbamol 500 MG Tablet 1-2 tab(s) orally 3 times a day , Medication List reviewed and reconciled with the patient * Allergies: N .K.D.A. Objective: * Vitals: N urse: dw, Pain: 0, Temp: 97.9, RR: 20, HR: 98, BP: 160/110, Ht: 6ft 2in, Wt: 293, BMI:37.61. * Examination: G eneral Examination: General P leasant and Cooperative, flushed. Heart: s inus tachycardia, no murmur, rubs or gallops. Lungs: L CTAB, No wheezes, crackles or rhonchi, Good air movement,. Abdomen: S oft, NTND, BSNA, No organomegaly or peritoneal signs.. Neurologic Exam: n o focal signs, Alert and oriented x 3.? Skin: w ithout acute rashes. Extremities: n ormal ROM, n o edema. Psych A nxious, avoiding eye contact, pressured speech.? Assessment: * Assessment: 1. E ssential hypertension - I10 (Primary) 2 . T ype 2 diabetes mellitus with other circulatory complications - E11.59 3 . M ood disorder - F39 ?4. T achycardia - R00.0 5 . B OK 37.0-37.9, adult - Z68.37 6. H ospital discharge follow-up - Z09 Plan: * Treatment: 2. T ype 2 diabetes mellitus with other circulatory complications L AB: THYROID PANEL WITH TSH (7444) Value Reference Range T 3 UPTAKE 25 22-35 - % * T 4 (THYROXINE), TOTAL 8.3 4.9-10.5 - mcg/dL * F REE T4 INDEX (T7) 2.1 1.4-3.8 - * T SH 0.91 0.40-4.50 - mIU/L * Nidhi Campos N 09/27/19 25 04:36:54 PM EDT > pt informedThis lab was reviewed by Nidhi Campos on 09/26/2024 at 16:37 PM EDT ?LAB: COMPREHENSIVE METABOLIC PANEL (09229)* Value Reference Range G LUCOSE 122 H 65-99 - mg/dL * U JERAMY NITROGEN (BUN) 12 7-25 - mg/dL * C REATININE 0.76 0.60-1.26 - mg/dL * B UN/CREATININE RATIO SEE NOTE: 6 - (calc) * S ODIUM 140 135-146 - mmol/L * P OTASSIUM 4.2 3.5-5.3 - mmol/L * C HLORIDE 104 98-110 - mmol/L * C ARBON DIOXIDE 24 20-32 - mmol/L * C ALCIUM 9.8 8.6-10.3 - mg/dL * P ROTEIN, TOTAL 8.0 6.1-8.1 - g/dL * A LBUMIN 4.8 3.6-5.1 - g/dL * G LOBULIN 3.2 1.9-3.7 - g/dL (calc ) * A LBUMIN/GLOBULIN RATIO 1.5 1.0-2.5 - (calc) * B ILIRUBIN, TOTAL 0.3 0.2-1.2 - mg/dL * A LKALINE PHOSPHATASE 76 36-130 - U/L * A ST 17 10-40 - U/L * A LT 42 9-46 - U/L * E GFR 118 > OR = 60 - mL/min/1 .73m2 * Nidhi Campos 09/27/19 04:36:54 PM EDT > pt informedThis lab was reviewed by Nidhi Campos on 09/26/2024 at 16:37 PM EDT ?LAB: MAGNESIUM (622)* Value Reference Range M AGNESIUM 2.5 1.5-2.5 - mg/dL * Nidhi Campos 09/27/19 04:36:54 PM EDT > pt informedThis lab was reviewed by Nidhi Campos on 09/26/2024 at 16:37 PM EDT ?LAB: HEMOGLOBIN A1c (496)* Value Reference Range H EMOGLOBIN A1c 5.8 H <5.7 - % * Nidhi Campos 09/27/19 04:36:54 PM EDT > pt informedThis lab was reviewed by Nidhi Campos on 09/26/2024 at 16:37 PM EDT ?LAB: VITAMIN B12/FOLATE, SERUM PANEL (7065)* Value Reference Range F OLATE, SERUM 4.3 L - ng/mL * V ITAMIN B12 [id number] - pg/mL * Nidhi Campos 09/27/19 04:36:54 PM EDT > pt informedThis lab was reviewed by Nidhi Campos on 09/26/2024 at 16:37 PM EDT Notes: Obtain labs today to monitor Diabetes??3.?Mood disorder? Start Vraylar Capsule, 1.5 MG, 1 capsule, Orally, Once a day, 30 day(s), 30.?LAB: MAGNESIUM (622)* Value Reference Range M AGNESIUM 2.5 1.5-2.5 - mg/dL * Nidhi Campos 09/27/19 25 04:36:54 PM EDT > pt informedThis lab was reviewed by Nidhi Campos on 09/26/2024 at 16:37 PM EDT ?LAB: HEMOGLOBIN A1c (496)* Value Reference Range H EMOGLOBIN A1c 5.8 H <5.7 - % * Nidhi Campos 09/27/19 04:36:54 PM EDT > pt informedThis lab was reviewed by Nidhi Campos on 09/26/2024 at 16:37 PM EDT ?LAB: VITAMIN B12/FOLATE, SERUM PANEL (7065)* Value Reference Range F OLATE, SERUM 4.3 L - ng/mL * V ITAMIN B12 [phone] - pg/mL * Nidhi Campos 09/27/19 04:36:54 PM EDT > pt informedThis lab was reviewed by Nidhi Campos on 09/26/2024 at 16:37 PM EDT Notes: Patient seems anxious on exam today, avoiding eye contact and with pressured speech Patient has been going through social stressors at work, and quit job yesterday He reports trouble with falling asleep each night Initiate Vraylar nightly??4.?Tachycardia? Start Propranolol HCl Tablet, 20 MG, 1 tablet, Orally, Twice a day, 30 day(s), 60.?LAB: THYROID PANEL WITH TSH (7444)* Value Reference Range T 3 UPTAKE 25 22-35 - % * T 4 (THYROXINE), TOTAL 8.3 4.9-10.5 - mcg/dL * F REE T4 INDEX (T7) 2.1 1.4-3.8 - * T SH 0.91 0.40-4.50 - mIU/L * Nidhi Campos 09/27/19 25 04:36:54 PM EDT > pt informedThis lab was reviewed by Nidhi Campos on 09/26/2024 at 16:37 PM EDT ?LAB: MAGNESIUM (622)* Value Reference Range M AGNESIUM 2.5 1.5-2.5 - mg/dL * Nidhi Campos 09/27/19 04:36:54 PM EDT > pt informedThis lab was reviewed by Nidhi Campos on 09/26/2024 at 16:37 PM EDT ?LAB: HEMOGLOBIN A1c (496)* Value Reference Range H EMOGLOBIN A1c 5.8 H <5.7 - % * Nidhi Campos 09/27/19 04:36:54 PM EDT > pt informedThis lab was reviewed by Nidhi Campos on 09/26/2024 at 16:37 PM EDT ?LAB: VITAMIN B12/FOLATE, SERUM PANEL (7065)* Value Reference Range F OLATE, SERUM 4.3 L - ng/mL * V ITAMIN B12 586 [id number] - pg/mL * Nidhi Campos 09/27/19 04:36:54 PM EDT > pt informedThis lab was reviewed by Nidhi Campos on 09/26/2024 at 16:37 PM EDT Notes: Obtain labs to rule out other causes of tachycardia Start Propranolol 20 mg twice daily??5.?BMI 37.0-37.9, adult? Notes: Patient has been actively working to lose weight.??6.?Hospital discharge follow-up? Notes: I reviewed ER notes available from emergency department. Reviewed labs, reviewed discharge plan, personally reconciled medication.?? * Procedure Codes: 1 111F DSCHRG MED/CURRENT MED MERGE * Follow Up: p rn * * Sign off status: Completed true * Provider: Krishna Hussein MD Date: 09/25/2024 Generated for Ty easton/Cristina/Shiraitting on: 10/27/2024 08:31 PM EDT History and Physical Notes * HPI (History of Present Illness) Category Sub-Category Detail Notes Category Not es gen Mr. Auguste is a 39 year old male presenting to the clinic with elevated blood pressure, diaphoresis, headaches, and shortness of air. He has had a band-like continuous headache for the past 3-4 days as well as more frequent headaches throughout the past few months. He had been using Tylenol and Ibuprofen but this was not helping. With these headaches, he has been experiencing sweating and shortness of air. He hasn't been able to check his blood pressure at home with these episodes over the past 2 weeks as his home blood pressure cuff has not been working. He has been taking both his Hydrochlorothiazide and Lisinopril as prescribed without missing any doses. He reported to the ER yesterday for these symptoms and his blood pressure was in 180s/100s. He reports the past few months have been really stressful for him at work. He was getting very little sleep with a new work schedule and has been having a hard time falling asleep. He has had some social stressors at work as well and ended up quitting his job yesterday. He does not smoke or use alcohol, and he has cut down his caffeine intake to one soda/day. He has been working on weight loss by decreasing intake and going to the gym regularly. He has noticed recently his workout have been difficult due to shortness of air. He denies any chest pain, changes in vision, or palpitations. Examination Category Sub-Category Detail Notes Category Not es General Examination Heart: sinus tachyc ardia, no murmur, rubs or gallops Lungs: LCTAB, No wheezes, c rackles or rhonchi, Good air movement, Abdomen: Soft, NTND, BSNA, No organomegaly or peritoneal signs. Extremities: normal ROM, no edema Skin: without acute rashes Neurologic Exam: no focal signs, Aler t and oriented x 3 General Pleasant and Coopera tive, flushed Psych Anxious, avoiding ey e contact, pressured speech
--- OUTSIDE RECORDS SUMMARY | 2024-10-09 05:45 | XMS_ITS ---
Author Organization [facility] D MELINDA Address [address] [place] [address] Care Team Providers Care Hand Embroiderer Name Role Phone Consuelo Lei Primary Care Provider [phone] CONSUELO LEI Unavailable Fortino Gamble Unavailable [phone] Allergies No Known Allergies REASON FOR VISIT f/u, refill on hydrochlorothiazide Medications Medication SIG (Take, Route, Frequency, Duration) Notes Start Date End Date Status hydroCHLOROthiazide 50 MG 1 tab(s) orall y once a day; Duration: 90 days Active Lisinopril 40 MG 1 tab(s) orally twic e daily; Duration: 90 days 05/23/2023 Active Folic Acid 1 MG 1 tablet Orally Once a day; Duration: 30 days 09/26/2024 Active Propranolol HCl 20 MG 1 tablet Orally Tw ice a day; Duration: 90 days 09/25/2024 Active Vraylar 1.5 MG 1 capsule Orally Onc e a day; Duration: 90 days 09/25/2024 Active Social History Smoking: Question Answer Notes Additional Findings: Tobacco User Chews fine cut tobacco Vital Signs Temperature 98.2 degrees Fahrenheit 10/10/19 25 Heart Rate 88 /min 10/09/2024 Blood pressure systolic 145 mm Hg 10/10/19 25 Blood pressure diastolic 110 mm Hg 025 Height 6ft 2in in 10/09/2024 Weight 295.6 lbs 10/09/2024 BMI 37.95 kg/m2 10/09/2024 Encounters Encounter Location Date Provider Diagnosis [address] [address] 10/09/2024 Fortino Hussein HTN (hypertension), benign I10 and Mood disorder F39 Assessments Encounter Date Diagnosis (ICD Code) Assessment Notes Treatment Notes Treatment Clinical Notes Section Notes 10/09/2024 HTN (hypertension ), benign (ICD-10 - I10) BP improved from last visit; home readings 130s/90s Patient has noticed improvements in headaches Ran out of Hydrochlorothiazide this morning and was unable to take Continue current regimen 10/09/2024 Mood disorder (ICD-10 - F39) Patient has noticed improvements in sleep since starting Vraylar Plan Of Treatment Medication Medication Name Sig Start Date Stop Date Notes hydroCHLOROthiazide 50 MG 1 tab(s) orall y once a day; Duration: 90 days Lisinopril 40 MG 1 tab(s) orally twic e daily; Duration: 90 days 05/23/2023 Propranolol HCl 20 MG 1 tablet Orally Tw ice a day; Duration: 90 days 09/25/2024 Vraylar 1.5 MG 1 capsule Orally Onc e a day; Duration: 90 days 09/25/2024 Treatment Notes Assessment Notes HTN (hypertension), benign BP improved from last visit; home readings 130s/90s Patient has noticed improvements in headaches Ran out of Hydrochlorothiazide this morning and was unable to take Continue current regimen Mood disorder Patient has noticed improvements in sleep since starting Vraylar Next Appt Details Follow Up: prn, Reason: Provider Name:Fortnio Hussein, 12/10/2024 04:15:00 PM, [address] [facility], [address], [place], [address], Progress Notes * Wili AUGUSTEDOB:1985 (39 yo M)Acc No.[id number]:10/09/2024 Progress Notes Patient: Wili PEREZ Provider: Krishna Hussein MD :1985 A ge:39 Y S ex:Male Date:10/09/2024 Address:[address] [place] [address], [place] [id number] Pcp:Consuelo Lei Subjective: * Chief Complaints: * 1 . F/u. 2. Refill on hydrochlorothiazide. * HPI: g en: Mr. Auguste is a 39 year old male presenting to the clinic for 2 week follow-up. He feels better since starting Propranolol and Vraylar. His home blood pressure readings have been 130s/90s. This morning he ran out of Hydrocholothiazide and was unable to take this. He has noticed improvements in his headaches. Sleep has also improved since last visit. He is in the works of starting a new job. H e denies any palpitations. * Medical History: H ypertension, Pre-Diabetes, Pancreas enzyme elevation with GLP. * Surgical History: D entae Past Surgical History. * Hospitalization/Major Diagno stic Procedure: Margy llanes Past Hospitalization. * Family History: F ather: alive, heart disease, hypertension, [place], pacemaker. M other: , diabetes, type I, hypertension, heart disease. P aternal Grand Father: . P aternal Grand Mother: . M aternal Grand Father: . M aternal Grand Mother: . P aternal uncle: alive. P aternal aunt: alive. M aternal aunt: alive, diabetes, hypertension. S iblings: , due to some kind of heart disease - age 37 years. Christal mancini: alive, 1 daughter autistic. 1 brother(s) . [...] Tablet 1 tab(s) orally twice daily , Taking Vraylar 1.5 MG Capsule 1 capsule Orally Once a day , Taking Propranolol HCl 20 MG Tablet 1 tablet Orally Twice a day , Taking Folic Acid 1 MG Tablet 1 tablet Orally Once a day , Medication List reviewed and reconciled with the patient * Allergies: N .K.D.A. Objective: * Vitals: N urse: dw, Pain: 0, Temp: 98.2, RR: 20, HR: 88, BP: 145/110, Ht: 6ft 2in, Wt: 295.6, BMI:37.95. * Examination: G eneral Examination: General P leasant and Cooperative, NAD on RA,. Heart: R egular Rate and Rhythm, no murmur, rubs or gallops. Lungs: L CTAB, No wheezes, crackles or rhonchi, Good air movement,. Abdomen: S oft, NTND, BSNA, No organomegaly or peritoneal signs.. Skin: w ithout acute rashes. Extremities: n ormal ROM, n o edema. Psych N ormal Mood/Affect. Assessment: * Assessment: 1. H TN (hypertension), benign - I10 (Primary) 2 . M ood disorder - F39? Plan: * Treatment: 2. M ood disorder Refill Vraylar Capsule, 1.5 MG, 1 capsule, Orally, Once a day, 90 days, 90, Refills 1. Notes: Patient has noticed improvements in sleep since starting Vraylar * Follow Up: p rn * * Sign off status: Completed true * Provider: Krishna Hussein MD Date: 0 10/09/2024 Generated for Printi rustam/Cristina/eTransmitting on: 0 10/27/2024 08:31 PM EDT History and Physical Notes * Examination Category Sub-Category Detail Notes Category Not es General Examination Heart: Regular Rate and Rhythm, no murmur, rubs or gallops Lungs: LCTAB, No wheezes, c rackles or rhonchi, Good air movement, Abdomen: Soft, NTND, BSNA, No organomegaly or peritoneal signs. Extremities: normal ROM, no edema Skin: without acute rashes General Pleasant and Coopera tive, NAD on RA, Psych Normal Mood/Affect
[2024-10-27] VITALS (8 sets, daily range): BP systolic 128–164; BP diastolic 64–94; PULSE 64–102; RESP 16–28; TEMP 36.9–37.1; O2SAT 94–100; BMI 39.3
--- NOTE | 2024-10-27 20:29 | ECG_ITS ---
APPROVED REPORT Exam: Resting ECG HR:98 bpm ECG Measurements Heart Rate 98 AXES AZ 187 P 54 QRSd 108 QRS 28 QT 335 T 60 QTc 390 Conclusion SINUS RHYTHM NORMAL ECG UNCONFIRMED REPORT Electronically signed by : Alessandro Townsend, 10/27/2024 23:34:32
--- OUTSIDE RECORDS SUMMARY | 2024-10-27 20:31 | XMS_ITS | Patient Health Record ---
Author Organization [facility] Address [address] [place] [address] Care Team Providers Care Rod Welder Name Role Phone Consuelo Lei Primary Care Provider [phone] CONSUELO LEISEY Unavailable Unavaila Fortino Meng Unavailable [phone] Migration, Provider Unavailable Unavailable Allergies No Known Allergies Results Component Value Reference Range Notes THYROID PANEL WITH TSH (7444 ) Reviewed date:09/26/2024 04:37:01 PM Interpretation: Performing Lab:[facility], [facility]WhqkGS[address] Amando Schmid Notes/Report: NON-FASTING; NON-FASTING; NON-FASTING; NON-FASTING; NON-FAST T3 UPTAKE 25 22-35 % T4 (THYROXINE), TOTAL 8.3 4.9-10.5 mcg/dL FREE T4 INDEX (T7) 2.1 1.4-3.8 TSH 0.91 0.40-4.50 mIU/L COMPREHENSIVE METABOLIC PANE L (84295) Reviewed date:09/26/2024 04:37:01 PM Interpretation: Performing Lab:ANG[facility]INA [facility] [employer], [facility] HospitalNnxpTC[address] Amando Schmid Notes/Report: NON-FASTING; NON-FASTING; NON-FASTING; NON-FASTING; [...] Reviewed date:09/26/2024 04:37:01 PM Interpretation: Performing Lab:[facility] [employer], [facility] TherapeuticsBwshKF[address] Amando Schmid Notes/Report: NON-FASTING; NON-FASTING; NON-FASTING; NON-FASTING; NON-FAST MAGNESIUM 2.5 1.5-2.5 mg/dL HEMOGLOBIN A1c (496) Reviewed date:09/26/2024 04:37:01 PM Interpretation: Performing Lab:ANGELINA [employer] [address] [employer], [facility]SettleAxgdIJ[address] Amando Schmid Notes/Report: NON-FASTING; NON-FASTING; NON-FASTING; NON-FASTING; [...] Diagnostics-[facility], [facility] OwenWvvwLH[address] Amando Schmid Notes/Report: NON-FASTING; NON-FASTING; NON-FASTING; NON-FASTING; NON-FAST VITAMIN B12 110 145-8096 pg/mL FOLATE, SERUM 4.3 Reference Range Low: <3.4 Borderline: 3.4-5.4 Normal: >5.4 Reason For Referral No Information Medications Medication SIG (Take, Route, Frequency, Duration) [...] Problem Status W/U Status Risk Notes Problem Peripheral circulatory disorder associated with diabetes mellitus (070743399) Type 2 diabetes mellitus with other circulatory complications (E11.59) Active confirmed Problem 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 Problem Essential hypertension (31951183) HTN (hypertension), benign (I10) Active confirmed Problem Morbid obesity (372281943) Morbid obesity (E66.01) Active confirmed Problem Obese class II (990167493108477 ) BMI 37.0-37.9, adult (Z68.37) Active confirmed Problem Obese class II (670507995892089 ) BMI 36.0-36.9,adult (Z68.36) Active confirmed Problem Mood disorder (94458612) Mood disorder (F39) Active confirmed Problem Family history of ischemic heart disease (844660095) FH: heart disease (Z82.49) Active confirmed Problem Tobacco use (567663251) Smokeless tobacco use (Z72.0) Active confirmed Problem Body mass index 35.00 to 39.99 (224265543954223 ) Body mass index [BMI] 38.0-38.9, adult (Z68.38) Active confirmed Problem Laboratory test result abnormal (512798709) Elevated pancreatic enzyme (R74.8) Active confirmed Vital Signs Heart Rate 88 /min 10/09/2024 Temperature 98.2 degrees Fahrenheit 10/09/2024 Blood pressure diastolic 110 mm Hg 10/09/2024 Height 6ft 2in in 10/09/2024 Blood pressure systolic 145 mm Hg 10/09/2024 Weight 295.6 lbs 10/09/2024 BMI 37.95 kg/m2 10/09/2024 Encounters Encounter Location Date Provider Diagnosis [facility] [address] [facility] [address] [place] [address] 07/28/2024 Provider Migration HTN (hypertension), benign I10 and Acute right-sided low back pain without sciatica M54.50 [facility] [place] [address] [address] 09/25/2024 Fortinojanis Hussein Type 2 diabetes mellitus with other circulatory complications E11.59 ; Essential hypertension I10 ; Mood disorder F39 ; Tachycardia R00.0 ; BMI 37.0-37.9, adult Z68.37 and Hospital discharge follow-up Z09 [facility] [address] [address] 10/09/2024 Fortino Besson HTN (hypertension), benign I10 and Mood disorder F39 [facility] [address] [address] 06/29/2024 Consuelo Do HTN (hypertension), benign I10 [facility] [address] [address] 09/25/2024 Consuelo Do Tachycardia R00.0 [facility] [place] [address] [place] [facility] [address] [place] [address] 09/26/2024 Fortino Hussein Assessments Encounter Date Diagnosis (ICD Code) Assessment Notes Treatment Notes Treatment Clinical Notes Section Notes 06/29/2024 HTN (hypertension), benign (ICD-10 - I10) 07/28/2024 HTN (hypertension), benign (ICD-10 - I10) 07/28/2024 Acute right-sided low back pain without sciatica (ICD-10 - M54.50) 09/25/2024 Type 2 diabetes mellitus with other circulatory complications (ICD-10 - E11.59) Obtain labs today to monitor Diabetes 09/25/2024 Essential hypertension (ICD-10 - I10) Continue current regimen with addition of Propranolol 20 mg twice daily Monitor BP at home 09/25/2024 Tachycardia (ICD-10 - R00.0) 10/09/2024 HTN (hypertension), benign (ICD-10 - I10) BP improved from last visit; home readings 130s/90s Patient has noticed improvements in headaches Ran out of Hydrochlorothiazide this morning and was unable to take Continue current regimen 10/09/2024 Mood disorder (ICD-10 - F39) Patient has noticed improvements in sleep since starting Vraylar 09/25/2024 Mood disorder (ICD-10 - F39) Patient [...] reconciled medication. 09/25/2024 Other Plan Of Treatment Future Test Test Name Order Date M-Vanillymandelic Acid 24 Hr,Ur 05/06/19 23 M-Cortisol,Random 05/06/2022 M-Metanephrines, Frac, Qn, 24-Hr 023 Next Appt Details Provider Name:Fortino Hussein, 12/10/2024 04:15:00 PM, [address], [place], [address], Insurance Providers Payer Name Payer Address Payer Phone Subscriber Number Group Number Insured Name Patient Relationship to Insured Coverage Start Date Coverage End Date MILE [facility] [address] [place] [address] [phone] [id number] Wili Auguste Self - patient is the insured Medications Administered Medication Instructions Date of Administration Dosage Notes Dexamethasone 4mg Injection 10/11/2023 4 mg Medical (General) History Medical History History ICD Code hypertension Pre-Diabetes Pancreas enzyme elevation with GLP
--- OUTSIDE RECORDS SUMMARY | 2024-10-27 20:31 | XMS_ITS | Patient Health Record ---
Author Organization [facility] Address [address] [place] [address] Care Team Providers Care Bearing Press Machine Operator Name Role Phone NO PCP Primary Care Provider Unavailabl e Allergies No Known Allergies Reason For Referral No Information Medications Medication SIG (Take, Route, Frequency, Duration) Notes Start Date End Date Status Lisinopril 40 MG 1 tab(s) orally once a day Active hydroCHLOROthiazide 50 MG 1 tab(s) orally once a day Active Immunizations Vaccine Route Administration Date Status Comme nts [id number] Quad PFS (0.5mL Admin) 18 y/o & older Unknown 07/31/2020 Refused Declined z2022 FluBLOK Quad PFS (0.5m L Admin) 18 y/o & older Unknown 11/30/2021 Refused Social History Tobacco Use: Social History Observation Description Date Details (start date - stop date) Never Smoker NA - NA Alcohol Misuse/Abuse (Audit C): Question Answer Notes Did you have a drink containing alcohol in the p ast year? No Points: 0 Interpretation: Negative Tobacco Use Question Answer Notes Are you a Never smoker Problems Problem Type SNOMED Code ICD Code Onset Dates Problem Status W/U Status Risk Notes Problem Sinusitis (03242635) Sinusitis (J32.9) Active confirmed Problem 07772675 Essential hypertension (I10) Active confirmed Problem BMI 30+ - obesity (335162054) BMI 32.0-32.9,adult (Z68.32) Active confirmed Plan Of Treatment No Information Insurance Providers Payer Name Payer Address Payer Phone Subscriber Number Group Number Insured Name Patient Relationship to Insured Coverage Start Date Coverage End Date MILE [employer] [place] [employer] [address] [address] [place] [phone] [id number] Wili Auguste Self - patient is the insured Medical (General) History Medical History History ICD Code HTN
--- OUTSIDE RECORDS SUMMARY | 2024-10-27 20:31 | XMS_ITS | Clinical Summary ---
Author Organization [facility] Address [address] [place] [address] Phone [email or web address] t@5 examples Care Team Providers Care Big Machine Consultant Name Role Phone Unavailable Primary Care Provider Unavailabl e Allergies No known active allergies Medications lisinopril (ZESTRIL) 20 MG tablet 01/28/2021 Active hydroCHLOROthiazid e (HYDRODIURIL) 25 MG tablet 01/28/2021 Active Active Problems No known active problems Social History Tobacco Use Types Packs/Day Years Used Date Smoking Tobacco: Never Smokeless Tobacco: Current Snuff Intimate Partner Violence Answer Date R ecorded Insults You Not on file 08/08/2020 Threatens You Not on file 08/08/2020 Screams at You Not on file 08/08/2020 Physically Hurt Not on file 08/08/2020 Intimate Partner Violence Score Not on file 08/08/2020 Stress Answer Date Recorded Stress in your Life Not on file 02/29/2024 Dealing with Stress 3 02/29/2024 Sex and Gender Information Value Date Recorded Sex Assigned at Not on file Legal Sex Male 9:34 AM [employer] Gender Identity Not on file Sexual Orientation Not on file Last Filed Vital Signs Vital Sign Reading Time Taken Comments Blood Pressure 145/96 02/23/2021 10:23 AM EDT Pulse 80 02/23/2021 10:23 AM EDT Temperature 36.8 C (98.3 F) 02/23/2021 10:23 AM EDT Respiratory Rate - - Oxygen Saturation 97% 02/23/2021 10:23 AM EDT Inhaled Oxygen Concentration - - Weight 126 kg (277 lb) 02/23/2021 10:23 AM EDT Height 185.4 cm (6' 1 ) 02/23/2021 10:23 AM EDT Body Mass Index 36.55 02/23/2021 10:23 AM EDT Plan of Treatment Health Maintenance Due Date Last Done Comments Dental Cleaning/Exam 1986 HIV Screening 1986 Hepatitis C Screening 1986 Hep B Infection Screening - Triple Screen 2004 Hepatitis B Immunization (1 of 3 - 19+ 3-dose series) 2005 Tetanus Diphtheria and Pertussis Immunization (1 - Tdap) 2005 Annual Preventive Exam 02/23/2022 , 03/20/2019 Covid-19 Immunization (1 - 2023- season) 2023 Influenza Immunization (#1) 2024 HIB Immunization Aged Out No longer e ligible based on patient's age to complete this topic HPV Immunization Aged Out No longer e ligible based on patient's age to complete this topic Hepatitis A Immunization Aged Out No longer eligible based on patient's age to complete this topic Pneumococcal: Ped (0 to 5 Yrs) and At-Risk Member (6 to 64 Yrs) Aged Out No longer eligible b ased on patient's age to complete this topic Polio Immunization Aged Out No longer eligible based on patient's age to complete this topic Varicella Immunization Aged Out No lo nger eligible based on patient's age to complete this topic [place] [address] [place] [id number] OPT OUT NO COPAY NB
--- NOTE | 2024-10-27 20:32 | CT_ITS ---
FINAL REPORT TECHNIQUE: Axial CT images were performed through the head. Coronal reformatted images were submitted. This study was performed with techniques to keep radiation doses as low as reasonably achievable (ALARA). Individualized dose reduction techniques using automated exposure control or adjustment of mA and/or kV according to the patient's size were employed. CLINICAL HISTORY: dizziness COMPARISON: None FINDINGS: The ventricles are normal in size. There is no evidence of hemorrhage. There is no mass or edema identified. There is no abnormal extra-axial fluid seen. There is mild mucoperiosteal thickening in the maxillary sinus. No air-fluid levels. IMPRESSION: No acute intracranial process. Reviewed, Interpreted and Dictated by Byron Bertrand MD Transcribed by Mariam Castro Authenticated and [facility]
--- NOTE | 2024-10-27 20:32 | XR_ITS ---
FINAL REPORT CLINICAL HISTORY: short of breath COMPARISON: None FINDINGS: The heart size is normal. The mediastinum is normal. There is no focal infiltrate or edema. There are no pleural effusions. There is no pneumothorax. There is no osseous abnormality. IMPRESSION: No acute cardiopulmonary process Reviewed, Interpreted and Dictated by Byron Bertrand MD Transcribed by Mariam Castro Authenticated and [facility]
[2024-10-27 20:33] LABS: Coronavirus 19, PCR Not Detected (NotDetected); Influenza A, PCR Not Detected (NotDetected); Influenza B, PCR Not Detected (NotDetected)
--- NOTE | 2024-10-27 20:35 | HMH.EDGENADL ---
Discharge Plan Disposition Patient Disposition: Home, Self-Care Prescriptions Prescriptions: No Action hydrochlorothiazide 50 mg tablet 50 mg PO DAILY Patient Comments: TAKE 1 TABLET BY MOUTH ONCE DAILY lisinopril 40 mg tablet 40 mg PO DAILY Patient Comments: TAKE 1 TABLET BY MOUTH TWICE DAILY Referrals Follow up/Referrals: Fortino Hussein MD [Primary Care Provider, Internal Medicine] - See instructions Activity Restrictions/Add. Instructions Additional Instructions/Restrictions: No evidence of systemic severe or invasive bacterial infection. There remain some diagnostic uncertainty. CT scan of your head chest x-ray COVID flu lab test all unremarkable. However you still have a fever of 100.9. I recommend that you take Tylenol and ibuprofen as needed for your symptoms return with any significant worsening or other concerns. Clinical Impressions Clinical Impression: Fever, Malaise, Light headedness Print Language Print Language: Wolof Discharge ED Provider: Morelia Townsend General Adult HPI <Debo Zhao (ED), CORPORATE SALES MANAGER - Last Filed: 10/27/24 22:02> General Chief complaint: Upper Respiratory Infection Stated complaint: Lightheaded,heavy breathing,feels hot,cold,sleeps Time Seen by Provider: 10/27/24 20:27 Mode of Arrival: Ambulatory Source of Information: Patient Description of Symptoms (Recalled from ER Triage Doc. by RN): Pt presents for evaluations of multiple complaints. Pt states he has had chills, headache, fatigue, and not feeling well since tuesday History of Present Illness HPI narrative: 39-year-old male presents to the ED today for complaints of shortness of breath with exertion, cough, headache, fatigue, dizziness, possible fever yesterday. 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 He does have a history of hypertension and takes lisinopril. Blood pressure on arrival elevated at 180/102. Patient did have diarrhea yesterday. Family member states that he became more short of breath today and she became more concerned as he was overbreathing and she brought him to the ED for evaluation. Most of the symptoms have been waxing and waning becoming worse over time. Related Data Home Medications ?Medication ?Instructions ?Recorded ?Confirmed hydrochlorothiazide 50 mg tablet 50 mg PO DAILY 07/12/23 10/27/24 lisinopril 40 mg tablet 40 mg PO DAILY 03/19/24 07/05/25 Allergies Allergy/AdvReac Type Severity Reaction Status Date / Time No Known Allergies Allergy Verified 07/12/23 09:44 PFS <Debo Zhao (ED), CORPORATE SALES MANAGER - Last Filed: 10/27/24 22:02> [facility] Disclaimer: The information contained in this section may have been updated after the patient was seen, as this information can be updated by other users. Social History Smoking Status: Never smoker alcohol intake: never current occupational status: employed Travel in the last 8 weeks?: None Have you lived/traveled outside US in past 30 days?: No Contact w/someone who lives/traveled outside US past 30 days?: No Exposure to someone with infectious disease in past 14 days?: No Do you have a fever (greater than 100.4 F or 38 C)?: No Have you tested positive for COVID-19?: No Exposed to someone with COVID-19 in past 14 days?: No Do you have a sore throat?: No Do you have a cough?: No Do you have any weakness?: Yes Do you have any diarrhea?: No Are you experiencing any unusual bleeding?: No Do you have any muscle aches/pain?: No Do you have any abdominal pain?: No Are you experiencing loss of taste or smell?: No <Debo Zhao (ED), CORPORATE SALES MANAGER - Last Filed: 10/27/24 22:02> ROS Obtained: Yes Systems reviewed as appropriate & no additional complaints except as documented Constitutional Constitutional: Reports as per HPI Physical Exam <Debo Zhao (ED), CORPORATE SALES MANAGER - Last Filed: 10/27/24 22:02> General General appearance: alert Head Head exam: normocephalic Eye Eye exam: Present normal appearance, PERRL and EOMI ENT ENT exam: Present normal oropharynx and mucous membranes moist Neck Neck exam: Present full ROM and trachea midline Respiratory Respiratory exam: Present normal lung sounds bilaterally Cardiovascular Cardiovascular exam: Present normal rhythm, tachycardia, normal heart sounds, +S1 and +S2 Abdominal Exam Abdominal exam: Present soft and normal bowel sounds Extremities Exam Extremities exam: Present normal inspection, full ROM and normal capillary refill Neurological Exam Neurological exam: Present alert, oriented X3 and normal gait Skin Skin exam: Present warm, dry and intact Medical Decision Making <Debo Zhao (ED), CORPORATE SALES MANAGER - Last Filed: 10/27/24 22:02> Medical Records Screening: Per USPSTF and CDC recommendations, given the prevalence of disease in our region, it is our hospital?s policy to screen for HIV and viral Hepatitis for all patients aged 18 and over and those with ongoing risk factors. Angel Inquiry Pt receiving controlled substance: No Angel was queried for this patient: No Vital Signs: 10/27/24 20:23 10/27/24 20:48 10/27/24 22:00 Temperature 98.7 F 98.4 F Temperature Source Oral Oral Pulse Rate 64 87 Pulse Rate [Right] 102 H Respiratory Rate 20 16 26 H Blood Pressure 164/94 H 128/75 Blood Pressure [Right Arm] 164/92 H Blood Pressure Mean 89 Blood Pressure Mean [Right Arm] 116 Blood Pressure Source [Right Arm] Automatic Cuff Blood Pressure Position [Right Arm] Sitting 02 Sat by Pulse Oximetry 100 96 95 Oxygen Delivery Method Room Air Room Air 10/27/24 22:15 10/27/24 22:30 10/27/24 22:45 Temperature Temperature Source Pulse Rate 85 90 83 Pulse Rate [Right] Respiratory Rate 26 H 24 28 H Blood Pressure 144/74 H 158/82 H 133/64 Blood Pressure [Right Arm] Blood Pressure Mean 86 90 88 Blood Pressure Mean [Right Arm] Blood Pressure Source [Right Arm] Blood Pressure Position [Right Arm] 02 Sat by Pulse Oximetry 95 94 L 95 Oxygen Delivery Method 10/27/24 22:47 Temperature Temperature Source Pulse Rate 87 Pulse Rate [Right] Respiratory Rate 25 H Blood Pressure 133/64 Blood Pressure [Right Arm] Blood Pressure Mean Blood Pressure Mean [Right Arm] Blood Pressure Source [Right Arm] Blood Pressure Position [Right Arm] 02 Sat by Pulse Oximetry 96 Oxygen Delivery Method Room Air Lab Data Lab Results 10/27/24 20:28: SARS-CoV-2 (PCR) Not detected, Influenza A Untype (PCR) Not detected, Influenza Type B (PCR) Not detected 10/27/24 20:43: WBC 7.7, RBC 4.90, Hgb 13.2 L, Hct 39.7 L, MCV 81.0, MCH 26.9 L, MCHC 33.2, RDW 13.0, Plt Count 219, MPV 8.4, Neut % (Auto) 78.6, Lymph % (Auto) 11.8, Rawlins % (Auto) 8.7, Eos % (Auto) 0.5, Baso % (Auto) 0.1, Neut # (Auto) 6.1, Lymph # (Auto) 0.9, Rawlins # (Auto) 0.7, Eos # (Auto) 0.0, Baso # (Auto) 0.0, D-Dimer 0.45, Sodium 135 L, Potassium 3.7, Chloride 97 L, Carbon Dioxide 26, Anion Gap 15.7 H, BUN 14, Creatinine 0.90, Estimated Creat Clear 207, Estimated GFR 94, Est GFR ( Amer) 114, Glucose 131 H, Calcium 8.9, Magnesium 2.2, Total Bilirubin 0.5, AST 27, ALT 40, Alkaline Phosphatase 53, Troponin I < 0.01, Total Protein 7.4, Albumin 4.2, Globulin 3.2, Albumin/Globulin Ratio 1.3, Lipase 96, TSH 1.78, Free T4 0.93 10/27/24 20:43 10/27/24 20:43 Orders (Tests/Meds): ED MEDICATIONS Discontinued Medications Generic Name Dose Route Start Last Admin Trade Name Freq PRN Reason Stop Dose Admin Acetaminophen 1,000 mg 10/27/24 22:57 Acetaminophen 500mg Tab PO 10/27/24 22:58 ONCE ONE Sodium Chloride 1,000 mls @ 999 mls/hr 10/27/24 20:32 10/27/24 20:46 Sod Chlor 0.9% 1000ml Bag IV 10/27/24 21:32 999 mls/hr .Q1H1M ONE Administration Ketorolac Tromethamine 30 mg 10/27/24 20:35 10/27/24 20:46 Ketorolac 30mg/Ml Vial IV 10/27/24 20:36 30 mg ONCE ONE Administration ORDERS Category Date Time Status CT head/brain wo con Stat Cat Scan 10/27/24 20:32 Taken Chest XR -- portable [XR chest portable] Stat Exams 10/27/24 20:32 Taken CBC [Complete Blood Count Auto Diff] Stat Lab 10/27/24 20:43 Completed Comprehensive Metabolic Panel Stat Lab 10/27/24 20:43 Completed D-Dimer Stat Lab 10/27/24 20:43 Completed Free T4 (Free Thyroxine) Stat Lab 10/27/24 20:43 Completed Full Resp Panel w/COVID ([facility]) Routine Lab 10/27/24 23:01 Ordered Lipase Stat Lab 10/27/24 20:43 Completed Magnesium Stat Lab 10/27/24 20:43 Completed Rapid PCR Covid and Flu A/B Stat Lab 10/27/24 20:28 Completed TSH [Thyroid Stimulating Hormone] Stat Lab 10/27/24 20:43 Completed Trop I [Troponin I] Stat Lab 10/27/24 20:43 Completed Troponin I Q3H Lab 10/27/24 23:45 Ordered Troponin I Q3H Lab 10/28/24 02:45 Ordered Medical Decision Narrative: patient is a 39-year-old male presenting to the emergency department for evaluation of shortness of breath, cough, headache, fatigue and dizziness. Patient is hemodynamically stable and nontoxic-appearing upon arrival, afebrile. Differential diagnosis includes viral illness, COVID, flu, ACS, among others. Workup will be conducted with hematologic labs, specific imaging. Initial inventions include crystalloid bolus, analgesics. Leaving patient with Dr Townsend as it is shift change. Patient is stable at this time. <Morelia Townsend MD - Last Filed: 10/27/24 23:16> Vital Signs: 10/27/24 20:23 10/27/24 20:48 10/27/24 22:00 Temperature 98.7 F 98.4 F Temperature Source Oral Oral Pulse Rate 64 87 Pulse Rate [Right] 102 H Respiratory Rate 20 16 26 H Blood Pressure 164/94 H 128/75 Blood Pressure [Right Arm] 164/92 H Blood Pressure Mean 89 Blood Pressure Mean [Right Arm] 116 Blood Pressure Source [Right Arm] Automatic Cuff Blood Pressure Position [Right Arm] Sitting 02 Sat by Pulse Oximetry 100 96 95 Oxygen Delivery Method Room Air Room Air 10/27/24 22:15 10/27/24 22:30 10/27/24 22:45 Temperature Temperature Source Pulse Rate 85 90 83 Pulse Rate [Right] Respiratory Rate 26 H 24 28 H Blood Pressure 144/74 H 158/82 H 133/64 Blood Pressure [Right Arm] Blood Pressure Mean 86 90 88 Blood Pressure Mean [Right Arm] Blood Pressure Source [Right Arm] Blood Pressure Position [Right Arm] 02 Sat by Pulse Oximetry 95 94 L 95 Oxygen Delivery Method 10/27/24 22:47 Temperature Temperature Source Pulse Rate 87 Pulse Rate [Right] Respiratory Rate 25 H Blood Pressure 133/64 Blood Pressure [Right Arm] Blood Pressure Mean Blood Pressure Mean [Right Arm] Blood Pressure Source [Right Arm] Blood Pressure Position [Right Arm] 02 Sat by Pulse Oximetry 96 Oxygen Delivery Method Room Air Lab Data Lab results reviewed: Yes I reviewed the patient's lab results. Lab Results 10/27/24 20:28: SARS-CoV-2 (PCR) Not detected, Influenza A Untype (PCR) Not detected, Influenza Type B (PCR) Not detected 10/27/24 20:43: WBC 7.7, RBC 4.90, Hgb 13.2 L, Hct 39.7 L, MCV 81.0, MCH 26.9 L, MCHC 33.2, RDW 13.0, Plt Count 219, MPV 8.4, Neut % (Auto) 78.6, Lymph % (Auto) 11.8, Rawlins % (Auto) 8.7, Eos % (Auto) 0.5, Baso % (Auto) 0.1, Neut # (Auto) 6.1, Lymph # (Auto) 0.9, Rawlins # (Auto) 0.7, Eos # (Auto) 0.0, Baso # (Auto) 0.0, D-Dimer 0.45, Sodium 135 L, Potassium 3.7, Chloride 97 L, Carbon Dioxide 26, Anion Gap 15.7 H, BUN 14, Creatinine 0.90, Estimated Creat Clear 207, Estimated GFR 94, Est GFR ( Amer) 114, Glucose 131 H, Calcium 8.9, Magnesium 2.2, Total Bilirubin 0.5, AST 27, ALT 40, Alkaline Phosphatase 53, Troponin I < 0.01, Total Protein 7.4, Albumin 4.2, Globulin 3.2, Albumin/Globulin Ratio 1.3, Lipase 96, TSH 1.78, Free T4 0.93 Orders (Tests/Meds): ED MEDICATIONS Discontinued Medications Generic Name Dose Route Start Last Admin Trade Name Freq PRN Reason Stop Dose Admin Acetaminophen 1,000 mg 10/27/24 22:57 Acetaminophen 500mg Tab PO 10/27/24 22:58 ONCE ONE Sodium Chloride 1,000 mls @ 999 mls/hr 10/27/24 20:32 10/27/24 20:46 Sod Chlor 0.9% 1000ml Bag IV 10/27/24 21:32 999 mls/hr .Q1H1M ONE Administration Ketorolac Tromethamine 30 mg 10/27/24 20:35 10/27/24 20:46 Ketorolac 30mg/Ml Vial IV 10/27/24 20:36 30 mg ONCE ONE Administration ORDERS Category Date Time Status CT head/brain wo con Stat Cat Scan 10/27/24 20:32 Taken Chest XR -- portable [XR chest portable] Stat Exams 10/27/24 20:32 Taken CBC [Complete Blood Count Auto Diff] Stat Lab 10/27/24 20:43 Completed Comprehensive Metabolic Panel Stat Lab 10/27/24 20:43 Completed D-Dimer Stat Lab 10/27/24 20:43 Completed Free T4 (Free Thyroxine) Stat Lab 10/27/24 20:43 Completed Full Resp Panel w/COVID ([facility]) Routine Lab 10/27/24 23:01 Ordered Lipase Stat Lab 10/27/24 20:43 Completed Magnesium Stat Lab 10/27/24 20:43 Completed Rapid PCR Covid and Flu A/B Stat Lab 10/27/24 20:28 Completed TSH [Thyroid Stimulating Hormone] Stat Lab 10/27/24 20:43 Completed Trop I [Troponin I] Stat Lab 10/27/24 20:43 Completed Troponin I Q3H Lab 10/27/24 23:45 Ordered Troponin I Q3H Lab 10/28/24 02:45 Ordered Medical Decision Narrative: patient is a 39-year-old male presenting to the emergency department for evaluation of shortness of breath, cough, headache, fatigue and dizziness. Patient is hemodynamically stable and nontoxic-appearing upon arrival, afebrile. Differential diagnosis includes viral illness, COVID, flu, ACS, among others. Workup will be conducted with hematologic labs, specific imaging. Initial inventions include crystalloid bolus, analgesics. Leaving patient with Dr Townsend as it is shift change. Patient is stable at this time. I was consulted by the RACHNA, and we discussed the complexity of the problems being addressed. I approved the treatment and management plan for this patient's care in the emergency department, thus performing a substantive portion of the medical decision making. Morelia Townsend MD, JAYSHREE, FACEP This is Dr. Rodríguez took over from [facility] to follow-up final disposition. Labs unremarkable COVID flu negative chest x-ray performed I personally interpreted which shows no evidence of dense consolidation. CT scan of the patient's head unremarkable for my personal interpretation. I also personally evaluated the patient and did a posterior circulation exam which was normal. No concern for posterior stroke or vertebrobasilar insufficiency at [facility]. Patient symptoms are more consistent with lightheadedness. He did feel warm to me I took his temperature and it was 100.9. Patient does have a sick contact at home and his daughter having recently been diagnosed with roseola. It is possible that there is an infection going to the house. No evidence of sepsis dimer is negative troponin unremarkable. There remain some diagnostic uncertainty. Patient is very low risk as no significant comorbidities other than mild hypertension I chose not to do or add blood cultures on however I did send a comprehensive viral respiratory panel which could give us an and answer. Family is aware of this. They will keep a close eye on him if he gets any worse he will return. Critical Care <Debo Zhao (ED), CORPORATE SALES MANAGER - Last Filed: 10/27/24 22:02> Critical Care Time Critical Care Time: No
[2024-10-27] MEDS: 0.9 % SODIUM CHLORIDE 1000ML 1,000 ML 999 ML IV (20:46)
[2024-10-27] MEDS: KETOROLAC 30MG/ML VIAL 30 MG IV (20:46)
--- NOTE | 2024-10-27 20:51 | PC.NURSE ---
PT transported to Radiology via WC by radiology staff.
[2024-10-27 20:52] LABS: Hematocrit 39.7 % (42.0-52.0); Hemoglobin 13.2 g/dL (14.1-18.0); Immature Granulocytes % 0.3 %; Mean Corpuscular HGB Conc 33.2 g/dL (31.8-35.4); Mean Corpuscular Hemoglobin 26.9 pg (27.0-31.2); Mean Corpuscular Volume 81.0 fl (80-94); Nucleated Red Blood Cells % 0 %; Platelet Count 219 K/mm3 (142-424); Red Blood Count 4.90 M/mm3 (4.60-6.20); Red Cell Distribution Width-SD 38.0 fL; White Blood Count 7.7 K/mm3 (4.8-10.8)
--- NOTE | 2024-10-27 20:56 | PC.NURSE ---
Radiology transported PT back to room via WC by radiology staff.
[2024-10-27 21:14] LABS: Alanine Aminotransferase 40 U/L (12-78); Albumin Level 4.2 g/dl (3.5-5.0); Albumin/Globulin Ratio 1.3 (1.1-1.8); Alkaline Phosphatase 53 U/L (38-126); Anion Gap 15.7 mEq/L (5-15); Aspartate Amino Transferase 27 U/L (17-59); Bilirubin,Total 0.5 mg/dl (0.2-1.3); Blood Urea Nitrogen 14 mg/dl (9-20); Calcium 8.9 mg/dl (8.4-10.2); Carbon Dioxide 26 mmol/L (22.0-30.0); Chloride 97 mmol/L (98-107); Creatinine Clearance Estimated 207 mL/min (50-200); Creatinine,Serum 0.90 mg/dl (0.66-1.25); Estimated Glomerular Filt Rate 94 ml/min (>60); GFR (African American) 114 ML/MIN (>60); Globulin 3.2 g/dL (1.3-3.2); Glucose 131 mg/dl (74-100); Lipase 96 U/L (23-300); Magnesium 2.2 mg/dl (1.6-2.3); Potassium 3.7 mmoL/L (3.5-5.1); Sodium 135 mmol/L (136-145); Total Protein,Serum 7.4 g/dl (6.3-8.2)
[2024-10-27 21:17] LABS: D-Dimer 0.45 ug/mL (0.0-0.5)
[2024-10-27 21:20] LABS: Free T4 (Free Thyroxine) 0.93 ng/dl (0.78-2.19)
[2024-10-27 21:45] LABS: Thyroid Stimulating Hormone 1.78 uIU/mL (0.465-4.68)
[2024-10-27 22:01] LABS: Troponin I < 0.01 ng/ml (0.00-0.034)
[2024-10-27 22:58] LABS: Adenovirus,PCR Not Detected (NotDetected); Chlamydophila Pneumoniae, PCR Not Detected (NotDetected); Coronavirus 19, PCR Not Detected (NotDetected); Coronovirus HKU1,PCR Not Detected (NotDetected); Influenza A, PCR Not Detected (NotDetected); Influenza AH1, 2009 Not Detected (NotDetected); Influenza AH1, PCR Not Detected (NotDetected); Influenza AH3,PCR Not Detected (NotDetected); Influenza B, PCR Not Detected (NotDetected); Mycoplasma Pneumoniae, PCR Not Detected (NotDetected); Parainfluenza 1, PCR Not Detected (NotDetected); Parainfluenza 2, PCR Not Detected (NotDetected); Parainfluenza 3, PCR Not Detected (NotDetected); Parainfluenza 4, PCR Not Detected (NotDetected)
== END 2024-10-27 23:40 | disposition home or self-care (01) ==
PROVIDERS: Nurse Practitioner; Emergency Provider Student in an Organized Health Care Education/Training Program; PCP Internal Medicine Adolescent Medicine
DX: R06.02 Shortness of breath (principal); R50.9 Fever, unspecified; R51.9 Headache, unspecified; R42 Dizziness and giddiness; R53.81 Other malaise
CPT/HCPCS: 70450; 71045; 80053; 83690; 83735; 84439; 84443; 84484; 85025; 85378; 87633; 87636; 93005; 96361; 96374; 99285; J1885; J7030

== ENCOUNTER 2025-01-08 07:53 | Emergency (ER) | payer BC, SELFPAY ==
--- OUTSIDE RECORDS SUMMARY | 2024-07-11 12:45 | XMS_ITS ---
Author Organization [facility] Address [address] [place] [address] Care Team Providers Care Pawn Shop Keeper Name Role Phone Consuelo Lei Primary Care Provider [phone] CONSUELO LEI Unavailable Unavaila Fortino Meng [phone] REASON FOR VISIT med ck Encounters Encounter Location Date Provider Diagnosis [facility] [address] [place] [address] 07/11/2024 Fortino Hussein Plan Of Treatment No Information Progress Notes * Wili AUGUSTEDOB:1985 (39 yo M)Acc No.[id number]:07/11/2024 Progress Notes Patient: Wili PEREZ Provider: Krishna Hussein MD :1985 A ge:39 Y S ex:Male Date:07/11/2024 Address:[address] [id number] Pcp:Consuelo Lei Subjective: * Chief Complaints: * 1 . Med ck. * Medical History: Objective: * Vitals: Assessment: Plan: * Treatment: * * Electronic signature of Anirudh Hussein MD FAAP on 01/08/2025 at 08:05 AM EDT Sign off status: Pending * Provider: Krishna Hussein MD Date: 0 07/11/2024 Generated for Ty easton/Cristina/Wai on: 0 01/08/2025 08:05 AM JOSEMANUEL
--- OUTSIDE RECORDS SUMMARY | 2024-07-28 17:30 | XMS_ITS ---
Author Organization Mauricio Patel PE D MELINDA Address [address] [facility] 36 [facility] [address] [place] [address] Care Team Providers Care Galley Cook Name Role Phone Consuelo Lei Primary Care Provider CONSUELO LEI Unavailable Unavaila ble Migration, Provider Unavailable Unavailable REASON FOR VISIT [facility] To [facility] Conversion Encounter Medications Medication SIG (Take, [...] Encounters Encounter Location Date Provider Diagnosis [facility] PED MELINDA [address] [facility] 36 [facility] [address] [place] [address] 07/28/2024 Provider Migration HTN (hypertension), benign I10 [...] Notes * Wili AUGUSTEDOB:1985 (39 yo M)Acc No.[id number]:07/28/2024 Patient: Wili PEREZ Provider: Nilesh Adame :1985 A ge:39 Y S ex:Male Date:07/28/2024 Address:[address] [place] [address], [facility] Pcp:Consuelo Lei Subjective: * Chief [facility]s: * [facility] Encounter. * Medical History: Objective: [...] Electronic signature of Prov ider Migration on 01/08/2025 at 08:08 AM EDT Sign off status: Pending * Provider: Nilesh uribe Migration Date: 0 07/28/2024 Generated for Ty easton/Cristina/eTjakismitting on: 0 01/08/2025 08:08 AM EDT
--- OUTSIDE RECORDS SUMMARY | 2024-12-10 12:15 | XMS_ITS ---
Author Organization [facility] Address [address] [place] [address] Care Team Providers Care Technical Marketing Consultant Name Role Phone Consuelo Lei Primary Care Provider CONSUELO LEI Unavailable Unavaila Fortino Meng [phone] REASON FOR VISIT med ck, Wellness update Encounters Encounter Location Date Provider Diagnosis [facility] [address] [place] [address] 12/10/2024 Fortino Hussein Plan Of Treatment No Information Progress Notes * Wili AUGUSTEDOB:1985 (39 yo M)Acc No.[id number]:12/10/2024 Progress Notes Patient: Wili PEREZ Provider: Krishna Hussein MD :1985 A ge:39 Y S ex:Male Date:12/10/2024 Address:[address] [place], [place] [id number] Pcp:Consuelo Lei Subjective: * Chief Complaints: * 1 . Med ck. 2. Wellness update. * Medical History: Objective: * Vitals: Assessment: Plan: * Treatment: * * Electronic signature of Anirudh Hussein MD FAAP on 01/08/2025 at 08:06 AM EDT Sign off status: Pending * Provider: Krishna Hussein MD Date: 0 12/10/2024 Generated for Ty easton/Cristina/Wai on: 0 01/08/2025 08:06 AM EDT
[2025-01-08] VITALS (8 sets, daily range): BP systolic 168–192; BP diastolic 108–128; PULSE 70–83; RESP 18–20; TEMP 36.7–36.8; O2SAT 97–100; BMI 38.2
--- NOTE | 2025-01-08 08:03 | PC.NURSE ---
dr burks at bedside
--- NOTE | 2025-01-08 08:04 | XR_ITS ---
FINAL REPORT CLINICAL HISTORY: Pain, medial knee FINDINGS: RIGHT KNEE 3 views of the right knee were obtained. There is no acute fracture or dislocation. The joint spaces are intact. There is no soft tissue abnormality. IMPRESSION: No acute fracture Reviewed, Interpreted and Dictated by Celi Carrero MD Transcribed by Radha Mcallister Authenticated and [facility]
--- NOTE | 2025-01-08 08:05 | HMH.EDCP ---
Discharge Plan Disposition Patient Disposition: Home, Self-Care Prescriptions Prescriptions: No Action hydrochlorothiazide 50 mg tablet 50 mg PO DAILY Patient Comments: TAKE 1 TABLET BY MOUTH ONCE DAILY lisinopril 40 mg tablet 40 mg PO DAILY Patient Comments: TAKE 1 TABLET BY MOUTH TWICE DAILY Referrals Follow up/Referrals: Rc Doan DO [Staff Physician, Orthopedics] - See instructions Referral Note: right knee pain/ swelling Fortino Hussein MD [Primary Care Provider, Internal Medicine] - See instructions Activity Restrictions/Add. Instructions Additional Instructions/Restrictions: You are being referred to Dr. Doan with orthopedic surgery team. I encouraged you to call their office this week to schedule an appointment. You are being provided crutches to help with walking and I do encourage you to avoid bearing weight on that leg until your follow-up appointment. Is possible that you injured a ligament in your knee. You take Tylenol, ibuprofen to help with pain and you can also apply ice packs and heating pads to the area to help with symptoms. Clinical Impressions Clinical Impression: Injury of knee, right Print Language Print Language: Slovak Discharge ED Provider: Galileo Covarrubias General Chief Complaint: Extremity Injury, Lower Stated Complaint: Right Knee pain- no accident Time Seen by Provider: 01/08/25 08:01 History of Present Illness HPI narrative: Wili Auguste is a 39-year-old male with a history of HTN who presents to the emergency department for complaints of pain to his right knee. Patient states that over the last 2 days, he has felt slight pains in his right knee but has been continue to bear weight on it and working as normal. He states that last night, he was playing softball and had a moment where he felt increasing pain in his right knee, mainly over the medial aspect of the knee. He states that he has still been able to bear weight on it but it does hurt to do so. He has noticed a mild amount of swelling to the knee as well. He does not believe he has fractured anything. Related Data Home Medications ?Medication ?Instructions ?Recorded ?Confirmed hydrochlorothiazide 50 mg tablet 50 mg PO DAILY 07/12/23 10/27/24 lisinopril 40 mg tablet 40 mg PO DAILY 07/12/23 10/27/24 Allergies Allergy/AdvReac Type Severity Reaction Status Date / Time No Known Allergies Allergy Verified 07/12/23 09:44 [facility] Disclaimer: The information contained in this section may have been updated after the patient was seen, as this information can be updated by other users. Social History Smoking Status: Never smoker alcohol intake: never current occupational status: employed Travel in the last 8 weeks?: None Have you lived/traveled outside US in past 30 days?: No Contact w/someone who lives/traveled outside US past 30 days?: No Exposure to someone with infectious disease in past 14 days?: No Do you have a fever (greater than 100.4 F or 38 C)?: No Have you tested positive for COVID-19?: No Exposed to someone with COVID-19 in past 14 days?: No Do you have a sore throat?: No Do you have a cough?: No Do you have any weakness?: No Do you have any diarrhea?: No Are you experiencing any unusual bleeding?: No Do you have any muscle aches/pain?: No Do you have any abdominal pain?: No Are you experiencing loss of taste or smell?: No ROS Obtained: Yes Systems reviewed as appropriate & no additional complaints except as documented Physical Exam General General appearance: alert and in no apparent distress Head Head exam: atraumatic Eye Eye exam: Present normal appearance ENT ENT exam: Present normal external ear exam Neck Neck exam: Present full ROM Chest Chest inspection: Present symmetric chest wall rise Respiratory Respiratory exam: Present normal lung sounds bilaterally; Absent respiratory distress Cardiovascular Cardiovascular exam: Present regular rate and normal rhythm Abdominal Exam Abdominal exam: Absent distention exam: Present deferred Extremities Exam Extremities exam: Present normal inspection Expanded Lower Extremity Exam Right: Leg image:  1. Pain, mild swelling, no tenderness Comment: RLE: 5 out of 5 strength with flexion and extension at the knee. Slight joint effusion at the knee. Full strength with dorsi and plantarflexion of the right foot. 2+ PT and DP pulses. Full strength with flexion and extension at the knee, however pain with flexion at the knee. Back Exam Back exam: Present normal inspection Neurological Exam Neurological exam: Present alert and oriented X3 Psychiatric Psychiatric exam: Present normal affect Skin Skin exam: Present warm and dry HEART Score HEART Score HEART Score assessment performed?: No Critical Care Critical Care Time Critical Care Time: No Medical Decision Making Angel Inquiry Pt receiving controlled substance: No Vital Signs Vital Signs: 01/08/25 08:00 01/08/25 08:06 01/08/25 08:20 Temperature 98.1 F Temperature Source Oral Pulse Rate 81 83 Pulse Rate [Left Radial] 80 Respiratory Rate 20 Blood Pressure 186/123 H 188/122 H Blood Pressure [Right Arm] 186/123 H Blood Pressure Mean [Right Arm] 144 02 Sat by Pulse Oximetry 99 100 98 Oxygen Delivery Method Room Air 01/08/25 08:30 01/08/25 08:40 01/08/25 09:00 Temperature Temperature Source Pulse Rate 83 78 81 Pulse Rate [Left Radial] Respiratory Rate Blood Pressure 192/128 H 184/122 H 183/124 H Blood Pressure [Right Arm] Blood Pressure Mean [Right Arm] 02 Sat by Pulse Oximetry 97 98 97 Oxygen Delivery Method 01/08/25 09:20 Temperature Temperature Source Pulse Rate 79 Pulse Rate [Left Radial] Respiratory Rate Blood Pressure 171/126 H Blood Pressure [Right Arm] Blood Pressure Mean [Right Arm] 02 Sat by Pulse Oximetry 97 Oxygen Delivery Method Response Orders (Tests/Meds): ED MEDICATIONS Discontinued Medications Generic Name Dose Route Start Last Admin Trade Name Freq PRN Reason Stop Dose Admin Lisinopril 40 mg 01/08/25 09:05 01/08/25 09:29 Lisinopril 20mg Tablet PO 01/08/25 09:06 40 mg ONCE ONE Administration ORDERS Category Date Time Status Knee XR right 2 views [XR knee RT 2V] Stat Exams 01/08/25 08:04 Completed MDM Narrative Medical Decision Narrative: Wili Auguste is a 39-year-old male with a history of HTN who presents to the emergency department for complaints of pain to his right knee. Patient states that over the last 2 days, he has felt slight pains in his right knee but has been continue to bear weight on it and working as normal. He states that last night, he was playing softball and had a moment where he felt increasing pain in his right knee, mainly over the medial aspect of the knee. He states that he has still been able to bear weight on it but it does hurt to do so. He has noticed a mild amount of swelling to the knee as well. He does not believe he has fractured anything. On arrival, patient is hemodynamically stable, in no acute distress, breathing comfortably on room air. Physical exam, stated above, reveals an overall well-appearing male in no distress. He has pain to the right knee. No significant tenderness on exam. A mild joint effusion. Pulses intact distally. Full strength with plantar and dorsiflexion of the foot. Full strength with flexion and extension at the knee, however does have pain with flexion at the knee. Differential diagnosis includes, but is not limited to: Fracture, ligamentous injury, joint effusion, osteoarthritis, among others. The most morbid conditions were considered and workup was based on these. Will obtain right knee x-rays to rule out bony injury. Knee x-rays interpreted by me personally. No acute fracture or bony findings. See radiology report for details. Patient is remained persistently hypertensive here in the emergency department, blood pressure 189/120 on repeat exam. Patient states that he has not taken his blood pressure medication this morning, lisinopril, hydrochlorothiazide and what he believes is metoprolol. Patient does state that his blood pressure gets this high when he forgets to take his medications. He has otherwise been taking them as prescribed, however did not take them this morning. Will give dose of 40 mg lisinopril as this is what he is taking twice daily. After 40 lisinopril, patient's blood pressure is improving to 160/108, and based on previous primary care notes, this seems to be closer to his baseline. Given this, there is concern for possible ligamentous injury. Will place patient in a knee immobilizer and offer crutches. Instructed to avoid bearing weight on that knee. Will have him follow-up with orthopedic surgery for further evaluation. Recommend conservative management with Tylenol, ibuprofen, ice and heat. Return precautions were given. All questions were answered. He demonstrated understanding and was in agreement with this plan. He was then discharged from the emergency department in stable condition.
--- OUTSIDE RECORDS SUMMARY | 2025-01-08 08:06 | XMS_ITS | Patient Health Record ---
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 Role Phone NO PCP Primary Care Provider Unavailabl e Allergies No Known Allergies Reason For Referral No Information Medications Medication SIG (Take, Route, Frequency, Duration) Notes Start Date End Date Status Lisinopril 40 MG 1 tab(s) orally once a day Active hydroCHLOROthiazide 50 MG 1 tab(s) orally once a day Active Immunizations Vaccine Route Administration Date Status Comme nts [id number] Quad PFS (0.5mL Admin) 19 y/o & [...] Status W/U Status Risk Notes Problem Sinusitis (51583231) Sinusitis (J32.9) Active confirmed Problem Essential hypertension (42173055) Essential hypertension (I10) Active confirmed Problem BMI 30+ - obesity (192952851) BMI 32.0-32.9,adult (Z68.32) Active confirmed Plan Of Treatment No Information Insurance Providers Payer Name Payer Address Payer Phone Subscriber Number Group Number Insured Name Patient Relationship to Insured Coverage Start Date Coverage End Date [employer] [place] [address] [address] [place] [id number] [phone] [id number] Wili Auguste Self - patient is the insured Medical (General) History Medical History History ICD Code HTN
--- OUTSIDE RECORDS SUMMARY | 2025-01-08 08:06 | XMS_ITS | Patient Health Record ---
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 Role Phone Maranda Lei Primary Care Provider MARANDA LEISEY Unavailable Unavaila Fortino Meng Unavailable [phone] Migration, Provider Unavailable Unavailable Allergies No Known Allergies Results Component Value Reference Range Notes VITAMIN B12/FOLATE, SERUM PA HAKEEM (7065) Reviewed date:09/26/2024 04:37:01 PM Interpretation: Performing Lab:[facility] [id number] [address], [facility] [id number] Amando Schmid Notes/Report: NON-FASTING; NON-FASTING; NON-FASTING; NON-FASTING; NON-FAST VITAMIN B12 332 856-1457 pg/mL FOLATE, SERUM 4.3 Reference Range Low: <3.4 Borderline: 3.4-5.4 Normal: >5.4 HEMOGLOBIN A1c (496) Reviewed date:09/26/2024 04:37:01 PM Interpretation: Performing Lab:[facility] Fanium [id number] [address], [place] [id number] Amando Schmid Notes/Report: NON-FASTING; NON-FASTING; NON-FASTING; NON-FASTING; [...] A1c for diagnosis of diabetes for children. MAGNESIUM (622) Reviewed date:09/26/2024 04:37:01 PM Interpretation: Performing Lab:[facility], [facility] [id number] [employer], [id number] Amando Schmid Notes/Report: NON-FASTING; NON-FASTING; NON-FASTING; NON-FASTING; NON-FAST MAGNESIUM 2.5 1.5-2.5 mg/dL COMPREHENSIVE METABOLIC PANE L (76360) Reviewed date:09/26/2024 04:37:01 PM Interpretation: Performing Lab:ANGELINA, [facility] [id number] [employer], [id number] Amando Schmid Notes/Report: NON-FASTING; NON-FASTING; NON-FASTING; NON-FASTING; [...] 17 10-40 U/L ALT 42 9-46 U/L THYROID PANEL WITH TSH (7444 ) Reviewed date:09/26/2024 04:37:01 PM Interpretation: Performing Lab:[facility]INA, [facility] [id number], [place] [id number] Amando Schmid Notes/Report: NON-FASTING; NON-FASTING; NON-FASTING; NON-FASTING; NON-FAST T3 UPTAKE 25 22-35 % T4 (THYROXINE), TOTAL 8.3 4.9-10.5 mcg/dL FREE T4 INDEX (T7) 2.1 1.4-3.8 TSH 0.91 0.40-4.50 mIU/L Reason For Referral No Information Medications Medication [...] Peripheral circulatory disorder associated with diabetes mellitus (926872197) Type 2 diabetes mellitus with other circulatory complications (E11.59) Active confirmed Problem 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 Problem Essential hypertension (56729186) HTN (hypertension), benign (I10) Active confirmed Problem Morbid obesity (847660961) Morbid obesity (E66.01) Active confirmed Problem Obese class II (388592051409860 ) BMI 37.0-37.9, adult (Z68.37) Active confirmed Problem Obese class II (870272162806335 ) BMI 36.0-36.9,adult (Z68.36) Active confirmed Problem Mood disorder (01062785) Mood disorder (F39) Active confirmed Problem Family history of ischemic heart disease (599736952) FH: heart disease (Z82.49) Active confirmed Problem Tobacco use (369476435) Smokeless tobacco use (Z72.0) Active confirmed Problem Body mass index 35.00 to 39.99 (141340397361548 ) Body mass index [BMI] 38.0-38.9, adult (Z68.38) Active confirmed Problem Laboratory test result abnormal (222387201) Elevated pancreatic enzyme (R74.8) Active confirmed Vital Signs Heart Rate 88 /min 10/09/2024 Temperature 98.2 degrees Fahrenheit 10/09/2024 Blood pressure diastolic 110 mm Hg 10/09/2024 Height 6ft 2in in 10/09/2024 Blood pressure systolic 145 mm Hg 10/09/2024 Weight 295.6 lbs 10/09/2024 BMI 37.95 kg/m2 10/09/2024 Encounters Encounter Location Date Provider Diagnosis [facility] [address] [facility] [address] [place] [employer] [address] 07/28/2024 Provider Migration HTN (hypertension), benign I10 and Acute right-sided low back pain without sciatica M54.50 [facility] [address] [address] 09/25/2024 Fortinojanis Hussein Type 2 diabetes mellitus with other circulatory complications E11.59 ; Essential hypertension I10 ; Mood disorder F39 ; Tachycardia R00.0 ; BMI 37.0-37.9, adult Z68.37 and Hospital discharge follow-up Z09 [facility] [address] [address] 10/09/2024 Fortino Besson HTN (hypertension), benign I10 and Mood disorder F39 [facility] [address] [address] 06/29/2024 Maranda Do HTN (hypertension), benign I10 [facility] [address] [address] 09/25/2024 Maranda Do Tachycardia R00.0 [facility] [address] [facility] [address] [place] [address] 09/26/2024 Fortino Hussein Assessments Encounter Date Diagnosis [...] M-Cortisol,Random 05/06/2022 M-Metanephrines, Frac, Qn, 24-Hr 023 Insurance Providers Payer Name Payer Address Payer Phone Subscriber Number Group Number Insured Name Patient Relationship to Insured Coverage Start Date Coverage End Date [employer] [address] [place] [address] [id number] Wili Auguste Self - patient is the insured Medications Administered Medication Instructions Date of Administration Dosage Notes Dexamethasone 4mg Injection 10/11/2023 4 mg Medical (General) History Medical History History ICD Code hypertension Pre-Diabetes Pancreas enzyme elevation with GLP
--- OUTSIDE RECORDS SUMMARY | 2025-01-08 08:07 | XMS_ITS | Clinical Summary ---
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 Active Active Problems Problem Noted Date Diagnosed Date Body mass index (BMI) 32.0-32.9, adult Essential hypertension 11/15/2024 Social History Tobacco Use Types Packs/Day Years [...] on file Legal Sex Male 9:34 AM BUSINESS CONSULT Gender Identity Not on file Sexual Orientation Not on file Last Filed Vital Signs Vital Sign Reading Time Taken Comments Blood Pressure 140/90 11/15/2024 10:51 AM EDT Pulse 96 11/15/2024 10:51 AM EDT Temperature 36.9 C (98.5 F) 11/15/2024 10:51 AM EDT Respiratory Rate 20 11/15/2024 10:51 AM EDT Oxygen Saturation 95% 11/15/2024 10:51 AM EDT Inhaled Oxygen Concentration - - Weight 132 kg (291 lb) 11/15/2024 10:51 AM EDT Height 185.4 cm (6' 1 ) 11/15/2024 10:51 AM EDT Body Mass Index 38.39 11/15/2024 10:51 AM EDT Plan of Treatment Health Maintenance Due Date Last Done Comments Dental Cleaning/Exam 1986 HIV Screening 1986 Hepatitis C Screening 1986 HPV Immunization (1 - Male 3-dose series) 2001 Hep B Infection Screening - Triple Screen 2004 Hepatitis B Immunization (1 of 3 - 19+ 3-dose series) 2005 Covid-19 Immunization (3 - 2024- season) 2024 09/10/2020, 08/20/2020 Influenza Immunization (#1) 2024 Annual Preventive Exam 11/15/2025 , 02/23/2021, 03/20/2019 Tetanus Diphtheria and Pertussis Immunization (2 - Td or Tdap) 09/27/2034 09/27/2024 HIB Immunization Aged Out No longer e [...] on patient's age to complete this topic Procedures Procedure Name Priority Date/Time Associated Diagnosis Comments SPIROMETRY WITHOUT BRONCHODILATOR Routine 11/15/2024 10:52 AM EDT Encounter for pre-employment examination from Last 3 Months Results * (ABNORMAL) Spirometry, Complete CPT 58519 (11/15/2024 10:52 AM EDT) FVC 4.32 liters Comment:74% FEV1 3.21 liters Comment:69% FEV1/FVC 74% % Comment:93% Flaquita Menezes BILLET SHEARER PFT ORDERABLES Final Result from Last [address] [place], [place] [id number] OPT OUT NO COPAY NB
--- OUTSIDE RECORDS SUMMARY | 2025-01-08 08:08 | XMS_ITS | Clinical Summary ---
Author Organization Healthcare Address [address] [place] [address] Care Team Providers Care Billing Coordinator Name Role Phone Fortino Hussein MD Primary Care Provider [phone] Allergies No known active allergies Medications methylPREDNISolo ne (Medrol Dospak) 4 MG tablets Take as directed. 1 each 10/28/2024 Active Encounters Date Type Department Care Team Description 10/28/2024 12:23 PM EDT - 10/28/2024 2:26 PM EDT Emergency [facility] [address] [place] [address] Trung Ulloa MD Generalized weakness (Primary Dx); Viral illness; Pain, dental Discharge Disposition: Home or Self Care 10/28/2024 Travel from Last 3 Months Social History Tobacco Use Types Packs/Day Years Used Date Smoking Tobacco: Never Assessed Sex and Gender Information Value Date Recorded Sex Assigned at Not on file Legal Sex Male 11:44 AM EDT Gender Identity Not on file Sexual Orientation Not on file Last Filed Vital Signs Vital Sign Reading Time Taken Comments Blood Pressure 155/98 10/28/2024 2:25 PM EDT Pulse 74 10/28/2024 2:25 PM EDT Temperature 37.2 C (98.9 F) 10/28/2024 2:25 PM EDT Respiratory Rate 18 10/28/2024 2:25 PM EDT Oxygen Saturation 94% 10/28/2024 11:52 AM EDT Inhaled Oxygen Concentration - - Weight 132 kg (290 lb) 10/28/2024 11:52 AM EDT Height 185.4 cm (6' 1 ) 10/28/2024 11:52 AM EDT Body Mass Index 38.26 10/28/2024 11:52 AM EDT Plan of Treatment Health Maintenance Due Date Last Done Comments [facility]-Depression Screening 1986 [facility]-/Child/Adol SDOH Screenings 1986 [facility]-Obesity Intervention 1992 [facility]-Varicella Vaccines (1 of 2 - 13+ 2-dose series) 1999 [facility]- SDOH Screenings 2004 [facility]-Adult SDOH Screenings 2004 [facility]-Hepatitis B Vaccines (1 of 3 - 19+ 3-dose series) 2005 HPV Vaccines (1 - 3-dose SCD M series) 2013 [id number]-86 Vaccine ( - season) 2024 09/10/2020, 08/20/2020 [facility]-Influenza Vaccine (#1) 2024 [facility]-DTaP,Tdap,and Td Vaccine s (2 - Td or Tdap) 09/27/2034 09/27/2024 [facility]-Zoster Vaccines (1 of 2) 2036 [facility]-HIV Screening Completed 10/28/2024 [facility]-Hepatitis C Screening Completed 10/28/2024 [facility]-HIB Vaccines Aged Out No longer e ligible based on patient's age to complete this topic [facility]-Hepatitis A Vaccines Aged Out No longer eligible based on patient's age to complete this topic [facility]-IPV Vaccines Aged Out No longer e ligible based on patient's age to complete this topic [facility]-Pneumococcal Vaccine: Pediatrics (0 to 5 Years) and At-Risk Patients (6 to 49 Years) Aged Out No longer eligible b ased on patient's age to complete this topic [facility]-Rotavirus Vaccines Aged Out No lo nger eligible based on patient's age to complete this topic Procedures Procedure Name Priority Date/Time Associated Diagnosis Comments XR CHEST 2 VIEWS STAT 10/28/2024 12:3 8 PM EDT GROUP A STREPTOCOCCUS BY PCR STAT 10/28/2024 12:32 PM EDT ED HIV 1/2 ANTIBODY/ANTIGEN SCREEN WITH REFLEX TO HIV I/II DIFFERENTIATION STAT 10/28/2024 12:22 PM EDT ED PROTOCOL HIV 1/2 ANTIBODY/ANTIGEN SCREEN W/REFLEX TO HIV 1/2 ANTIBODY DIFFERENTIATION STAT 10/28/2024 12:22 PM EDT HEPATITIS C ANTIBODY - ED W/REFLEX TO HCV QUANT PCR STAT 10/28/2024 12:22 PM EDT FREE T4, PLASMA STAT 10/28/2024 12:22 PM EDT TSH STAT 10/28/2024 12:22 PM EDT CBC WITH AUTO DIFFERENTIAL STAT 10/28/2024 12:22 PM EDT COMPREHENSIVE METABOLIC PANEL, PLASMA STAT 10/28/2024 12:22 PM EDT MONOSPOT STAT 10/28/2024 12:22 PM EDT ECG ADULT STAT 10/28/2024 11:59 AM EDT from Last 3 Months Results * XR Chest 2 Views (10/28/2024 12:38 PM EDT) Anatomical Region Laterality Modality Chest Computed Radiogr aphy Impressions 10/28/2024 1:04 PM EDT No acute findings CRITICAL RESULT: No. COMMUNICATION: Per this written report. Drafted by Genoveva Onofre MD on 10/28/2024 1:03 PM Final report signed by Genoveva Onofre MD on 10/28/2024 1:04 PM Narrative 10/28/2024 1:04 PM EDT CLINICAL INDICATION: faigue/dizziness TECHNIQUE: XR CHEST 2 VIEWS COMPARISON: None. FINDINGS: Lungs are clear. Heart and mediastinal contours are within normal limits. No pneumothorax. No pleural effusion. Bony structures are unremarkable. Procedure Note Genoveva Onofre MD - 10/28/2024 CLINICAL INDICATION: faigue/dizziness TECHNIQUE: XR CHEST 2 VIEWS COMPARISON: None. FINDINGS: Lungs are clear. Heart and mediastinal contours are within normal limits.No pneumothorax. No pleural effusion. Bony structures are unremarkable. IMPRESSION: No acute findings CRITICAL RESULT: No. COMMUNICATION: Per this written report. Drafted by Genoveva Onofre MD on 10/28/2024 1:03 PM Final report signed by Genoveva Onofre MD on 10/28/2024 1:04 PM Trung Ulloa MD IMG XR PROCEDURES Final Re sult * Strep Screen (10/28/2024 12:32 PM EDT) [facility] Group A Streptococcus PCR Result Not Detected Not Detected 10/28/2024 1:58 PM EDT [facility] Swab Pharyngeal structure / Unknown Non-blood Collection / Unknown 10/28/2024 12:32 PM EDT 10/28/2024 12:37 PM EDT Trung Ulloa MD LAB MICROBIOLOGY - GENERAL ORDERABLES Final Result Performing Organization Address City/[facility]/ZIP Co de Phone Number [facility] [address] [place] [address] * ED HIV 1/2 Antibody/Antigen Screen w/Reflex to HIV 1/2 Differentiation (10/28/2024 12:22 PM EDT) [facility] HIV 1 & 2 Antibody/Antigen Screen Non Reactive Non Reactive 10/28/2024 1:20 PM EDT [facility] Comment:Screening for HIV 1 & 2 antibodies, and P24 antigen is NONREACTIVE. No confirmatory testing is required. Blood Venous blood specimen / Unknown Venipuncture / Unknown 10/28/2024 12:22 PM EDT 10/28/2024 12:38 PM EDT Trung Ulloa MD LAB BLOOD ORDERABLES Final Result Performing Organization Address City/[facility]/ZIP Co de Phone Number [facility] [address] [place] [address] * Hepatitis C Antibody - ED (10/28/2024 12:22 PM EDT) Hepatitis C Antibody Negative Negative 10/28/2024 1:20 PM EDT [facility] Blood Venous blood specimen / Unknown Venipuncture / Unknown 10/28/2024 12:22 PM EDT 10/28/2024 12:38 PM EDT Trung Ulloa MD LAB BLOOD ORDERABLES Final Result [facility] [address] [place] [address] * Monospot Test (10/28/2024 12:22 PM EDT) Monospot Negative Negative 10/28/2024 1:35 PM EDT [facility] Blood Venous blood specimen / Unknown Venipuncture / Unknown 10/28/2024 12:22 PM EDT 10/28/2024 12:38 PM EDT Trung Ulloa MD LAB BLOOD ORDERABLES Final Result Performing Organization Address City/[facility]/ZIP Co de Phone Number [facility] [address] [place] [address] * (ABNORMAL) CBC w/diff (10/28/2024 12:22 PM EDT) Pathologist [facility] WBC Count 7.72 3.70 - 10.30 10*3/uL LAB HEMATOLOGY METHOD 10/28/2024 12:29 PM EDT [facility] RBC Count 5.08 4.60 - 6.10 10*6/uL LAB HEMATOLOGY METHOD 10/28/2024 12:29 PM EDT [facility] HGB 13.7 13.7 - 17.5 g/dL LAB HEMATOLOGY METHOD 10/28/2024 12:29 PM EDT [facility] HCT 40.7 40.0 - 51.0 % LAB HEMATOLOGY METHOD 10/28/2024 12:29 PM EDT [facility] Platelet Count 232 155 - 369 10*3/uL LAB HEMATOLOGY METHOD 10/28/2024 12:29 PM EDT [facility] MCV 80 79 - 98 fL LAB HEMATOLOGY METHOD 10/28/2024 12:29 PM EDT [facility] MCH 27.0 26.0 - 32.0 pg LAB HEMATOLOGY METHOD 10/28/2024 12:29 PM EDT [facility] MCHC 33.7 30.7 - 35.5 g/dL LAB HEMATOLOGY METHOD 10/28/2024 12:29 PM EDT [facility] RDW 12.9 11.5 - 14.5 % LAB HEMATOLOGY METHOD 10/28/2024 12:29 PM EDT [facility] MPV 8.2(L) 8.8 - 12.5 fL LAB HEMATOLOGY METHOD 10/28/2024 12:29 PM EDT [facility] nRBC 0.0 <=0.0 per 100 WBCs LAB HEMATOLOGY METHOD 10/28/2024 12:29 PM EDT [facility] Differential Type Automated LAB HEMATOLOGY METHOD 10/28/2024 12:29 PM EDT [facility] Neutrophils % 78 % LAB HEMATOLOGY METHOD 10/28/2024 12:29 PM EDT [facility] Lymphocytes % 14 % LAB HEMATOLOGY METHOD 10/28/2024 12:29 PM EDT [facility] Monocytes % 8 % LAB HEMATOLOGY METHOD 10/28/2024 12:29 PM EDT [facility] Eosinophils % 0 % LAB HEMATOLOGY METHOD 10/28/2024 12:29 PM EDT [facility] Basophils % 0 % LAB HEMATOLOGY METHOD 10/28/2024 12:29 PM EDT [facility] Immature Granulocytes % 0 % LAB HEMATOLOGY METHOD 10/28/2024 12:29 PM EDT [facility] Neutrophils Absolute 6.00 1.60 - 6.10 10*3/uL LAB HEMATOLOGY METHOD 10/28/2024 12:29 PM EDT [facility] Lymphocytes Absolute 1.05(L) 1.20 - 3.90 10*3/uL LAB HEMATOLOGY METHOD 10/28/2024 12:29 PM EDT [facility] Monocytes Absolute 0.59 0.30 - 0.90 10*3/uL LAB HEMATOLOGY METHOD 10/28/2024 12:29 PM EDT [facility] Eosinophils Absolute 0.03 0.00 - 0.50 10*3/uL LAB HEMATOLOGY METHOD 10/28/2024 12:29 PM EDT [facility] Basophils Absolute 0.02 0.00 - 0.10 10*3/uL LAB HEMATOLOGY METHOD 10/28/2024 12:29 PM EDT [facility] Immature Granulocytes Absolute 0.03 0.00 - 0.06 10*3/uL LAB HEMATOLOGY METHOD 10/28/2024 12:29 PM EDT [facility] Blood Venous blood specimen / Unknown Venipuncture / Unknown 10/28/2024 12:22 PM EDT 10/28/2024 12:26 PM EDT Narrative [facility] - 10/28/2024 12:29 PM EDT Therapeutic decision making should be based on absolute values, rather than percentages. Trung Ulloa MD LAB BLOOD [place] [address] * Thyroid Stimulating Hormone, Plasma (10/28/2024 12:22 PM EDT) Thyroid Stimulating Hormone, Plasma 2.29 0.40 - 4.20 uIU/mL 10/28/2024 1:06 PM EDT [facility] Blood Venous blood specimen / Unknown Venipuncture / Unknown 10/28/2024 12:22 PM EDT 10/28/2024 12:26 PM EDT Trung Ulloa MD LAB BLOOD [place] [address] * Free T4, Plasma (10/28/2024 12:22 PM EDT) Free T4, Plasma 1.0 0.8 - 1.7 ng/dL 10/28/2024 1:06 PM EDT [facility] Blood Venous blood specimen / Unknown Venipuncture / Unknown 10/28/2024 12:22 PM EDT 10/28/2024 12:26 PM EDT Trung Ulloa MD LAB BLOOD ORDERABLES Final Result [facility] [address] [place] [address] * (ABNORMAL) CMP (10/28/2024 12:22 PM EDT) Glucose, Plasma 102(H) 74 - 99 mg/dL 10/28/2024 1:06 PM EDT [facility] BUN, Plasma 9 7 - 21 mg/dL 10/28/2024 1:06 PM EDT [facility] Creatinine, Plasma 0.80 0.70 - 1.20 mg/dL 10/28/2024 1:06 PM EDT [facility] BUN/Creatinine Ratio 11 10/28/2024 1:06 PM EDT [facility] Sodium, Plasma 136 136 - 145 mmol/L 10/28/2024 1:06 PM EDT [facility] Potassium, Plasma 4.0 3.6 - 4.9 mmol/L 10/28/2024 1:06 PM EDT [facility] Chloride, Plasma 102 97 - 107 mmol/L 10/28/2024 1:06 PM EDT [facility] CO2, Plasma 23 22 - 29 mmol/L 10/28/2024 1:06 PM EDT [facility] Anion Gap 11 6 - 16 mmol/L 10/28/2024 1:06 PM EDT [facility] Total Calcium, Plasma 8.8(L) 8.9 - 10.2 mg/dL 10/28/2024 1:06 PM EDT [facility] Total Protein 7.3 6.3 - 7.9 g/dL 10/28/2024 1:06 PM EDT [facility] Albumin, Plasma 4.1 3.5 - 5.2 g/dL 10/28/2024 1:06 PM EDT [facility] AST, Plasma 20 10 - 50 U/L 10/28/2024 1:06 PM EDT [facility] ALT, Plasma 36 10 - 50 U/L 10/28/2024 1:06 PM EDT [facility] Alkaline Phosphatase, Plasma 64 40 - 115 U/L 10/28/2024 1:06 PM EDT [facility] Total Bilirubin, Plasma 0.4 0.2 - 1.1 mg/dL 10/28/2024 1:06 PM EDT [facility] eGFRcr 116.2 mL/min/1.7 3m*2 10/28/2024 1:06 PM EDT [facility] Comment:Reported eGFRcr in m L/min/1.73m2 is based the CKD-EPI 2020 equation that does not use a race coefficient. Blood Venous blood specimen / Unknown Venipuncture / Unknown 10/28/2024 12:22 PM EDT 10/28/2024 12:26 PM EDT us Trung Ulloa MD LAB BLOOD ORDERABLES Final Result Performing Organization Address City/[facility]/ZIP Co de Phone Number [facility] [address] [place] [address] * EKG now - STAT (adult) (10/28/2024 11:59 AM EDT) EKG DIAGNOSIS CLASS Abnormal MUSE ECG Ventricular Rate 72 BPM MUSE ECG Atrial Rate 72 BPM MUSE ECG AK Interval 204 ms MUSE ECG QRSD Interval 98 ms MUSE ECG QT Interval 368 ms MUSE ECG QTC Interval 402 ms MUSE ECG P [place] 33 degrees MUSE ECG R [place] -3 degrees MUSE ECG T Wave [place] 26 degrees MUSE ECG Diagnosis Normal sinus rhythm MUSE ECG Diagnosis Cannot rule out Anterior infarct , age undetermined though possibly related to precordial lead positioning MUSE ECG Diagnosis Borderline ECG MUSE ECG Diagnosis No previous ECGs available MUSE ECG Diagnosis MUSE ECG Diagnosis MUSE ECG Diagnosis Confirmed by Martinez Wills ([id number]) on 10/29/2024 9:19:03 AM MUSE ECG 10/28/2024 11:5 9 AM EDT 10/29/2024 9:19 AM EDT us Trung Ulloa MD ECG ORDERABLES Final Resu lt MUSE ECG from Last 3 Months Care Teams Billing Coordinator Relationship Specialty Start Date End Date Fortino Hussein MD [address] [place] [address] [place] [address] PCP - General Internal Medicine 10/28/24
--- NOTE | 2025-01-08 08:10 | PC.NURSE ---
pt to xr
[2025-01-08] MEDS: LISINOPRIL 20MG TABLET 40 MG PO (09:29)
== END 2025-01-08 10:17 | disposition home or self-care (01) ==
PROVIDERS: Emergency Provider Student in an Organized Health Care Education/Training Program; PCP Internal Medicine Adolescent Medicine
DX: S89.91XA Unspecified injury of right lower leg, initial encounter (principal); M25.561 Pain in right knee; X58.XXXA Exposure to other specified factors, initial encounter
CPT/HCPCS: 73560; 99283; 99285

== ENCOUNTER 2025-01-28 07:08 | Outpatient (CLI) | payer BC, SELFPAY ==
--- OUTSIDE RECORDS SUMMARY | 2024-07-11 12:45 | XMS_ITS ---
Author Organization [facility] Address [address] [place] [address] Care Team Providers Care Senior Electrical Engineer Name Role Phone Consuelo Lei Primary Care Provider CONSUELO LEI Unavailable Unavaila Fortino Meng [phone] REASON FOR VISIT med ck Encounters Encounter Location Date Provider Diagnosis [facility] [address] [place] [address] 07/11/2024 Fortino Hussein Plan Of Treatment No Information Progress Notes * Wili AUGUSTEDOB:1985 (39 yo M)Acc No.[id number]:07/11/2024 Progress Notes Patient: Wili PEREZ Provider: Krishna Hussein MD :1985 A ge:39 Y S ex:Male Date:07/11/2024 Address:[address] [id number] Pcp:Consuelo Lei Subjective: * Chief Complaints: * 1 . Med ck. * Medical History: Objective: * Vitals: Assessment: Plan: * Treatment: * * Electronic signature of Anirudh Hussein MD FAAP on 01/28/2025 at 07:09 AM EDT Sign off status: Pending * Provider: Krishna Hussein MD Date: 0 07/11/2024 Generated for Ty easton/Cristina/Wai on: 1 07:09 AM JOSEMANUEL
--- OUTSIDE RECORDS SUMMARY | 2024-07-28 17:30 | XMS_ITS ---
Author Organization Mauricio Patel PE D MELINDA Address [address] [facility] 36 [facility] [address] [place] [address] Care Team Providers Care Jigsawyer Name Role Phone Consuelo Lei Primary Care Provider [phone] CONSUELO LEI Unavailable Unavaila ble Migration, Provider Unavailable Unavailable REASON FOR VISIT [facility] Conversion Encounter Medications Medication SIG (Take, [...] Active Encounters Encounter Location Date Provider Diagnosis [facility] PED MELINDA [address] [facility] 36 [facility] [address] [place] [address] 07/28/2024 Provider Migration HTN (hypertension), benign I10 [...] Notes * Wili AUGUSTEDOB:1985 (39 yo M)Acc No.[id number]:07/28/2024 Patient: Wili PEREZ Provider: Nilesh Adame :1985 A ge:39 Y S ex:Male Date:07/28/2024 Address:[address] [place] [address], [facility] Pcp:Consuelo Lei Subjective: * Chief [facility]s: * [facility] En[facility]. * Medical History: Objective: [...] Electronic signature of Prov ider Migration on 01/28/2025 at 07:10 AM EDT Sign off status: Pending * Provider: Nilesh Adame Date: 0 07/28/2024 Generated for Ty easton/Cristina/eTjakismitting on: 1 07:10 AM EDT
--- OUTSIDE RECORDS SUMMARY | 2024-12-10 12:15 | XMS_ITS ---
Author Organization [facility] Address [address] [place] [address] Care Team Providers Care Motorcycle Riding Instructor Name Role Phone Consuelo Lei Primary Care Provider CONSUELO LEI Unavailable Unavaila Fortino Meng [phone] REASON FOR VISIT med ck, Wellness update Encounters Encounter Location Date Provider Diagnosis [facility] [address] [place] [address] 12/10/2024 Fortino Hussein Plan Of Treatment No Information Progress Notes * Wili AUGUSTEDOB:1985 (39 yo M)Acc No.[id number]:12/10/2024 Progress Notes Patient: Wili PEREZ Provider: Krishna Hussein MD :1985 A ge:39 Y S ex:Male Date:12/10/2024 Address:[address] [place], [place] [id number] Pcp:Consuelo Lei Subjective: * Chief Complaints: * 1 . Med ck. 2. Wellness update. * Medical History: Objective: * Vitals: Assessment: Plan: * Treatment: * * Electronic signature of Anirudh Hussein MD FAAP on 01/28/2025 at 07:09 AM EDT Sign off status: Pending * Provider: Krishna Hussein MD Date: 0 12/10/2024 Generated for Ty easton/Cristina/Wai on: 1 07:09 AM EDT
--- NOTE | 2025-01-28 07:00 | MR_ITS ---
FINAL REPORT TECHNIQUE: Multiplanar and multisequence imaging the right knee was obtained without contrast. CLINICAL HISTORY: internal derangement of right knee injury to knee while playig softball medial pain FINDINGS: Bones: There is no acute fracture or marrow edema. The joint space is preserved. There are no full thickness cartilage defects. Menisci: There is an oblique tear at the posterior horn of the medial meniscus. Anterior horn is intact. Lateral meniscus is intact. Ligaments: Abnormal signal intensity is seen within the ACL which could represent sprain or partial tear. Remaining ligaments are intact. Tendons/Muscles: The quadriceps and patellar tendons are within normal limits. The biceps femoris tendon and iliotibial tract are intact. The popliteus tendon is normal. Other: There is a large joint effusion. There is prepatellar soft tissue edema. IMPRESSION: Oblique tear of the posterior horn of the medial meniscus. Sprain or partial tear of the ACL. Reviewed, Interpreted and Dictated by Laurel Vance MD Transcribed by Radha Mcallister Authenticated and . [facility]
--- OUTSIDE RECORDS SUMMARY | 2025-01-28 07:09 | XMS_ITS | Patient Health Record ---
Author Organization [facility] Address [address] [place] [address] Care Team Providers Care Freelance Copywriter Name Role Phone NO PCP Primary Care Provider Unavailabl e Allergies No Known Allergies Reason For Referral No Information Medications Medication SIG (Take, Route, Frequency, Duration) Notes Start Date End Date Status Lisinopril 40 MG 1 tab(s) orally once a day Active hydroCHLOROthiazide 50 MG 1 tab(s) orally once a day Active Immunizations Vaccine Route Administration Date Status Comme nts [id number] Quad PFS (0.5mL Admin) 19 y/o & [...] Problem Status W/U Status Risk Notes Problem Essential hypertension (74873512) Essential hypertension (I10) Active confirmed Problem BMI 30+ - obesity (064491322) BMI 32.0-32.9,adult (Z68.32) Active confirmed Problem Sinusitis (33872159) Sinusitis (J32.9) Active confirmed Plan Of Treatment No Information Insurance Providers Payer Name Payer Address Payer Phone Subscriber Number Group Number Insured Name Patient Relationship to Insured Coverage Start Date Coverage End Date [employer] [place] [employer] [address] [address] [place] [id number] [phone] [id number] Wili Auguste Self - patient is the insured Medical (General) History Medical History History ICD Code HTN
--- OUTSIDE RECORDS SUMMARY | 2025-01-28 07:10 | XMS_ITS | Patient Health Record ---
Author Organization [facility] Address [address] [place] [address] Care Team Providers Care Heat Treat Supervisor Name Role Phone Consuelo Lei Primary Care Provider CONSUELO LEI Unavailable Unavaila Fortino Meng Unavailable [phone] Migration, Provider Unavailable Unavailable Allergies No Known Allergies Results Component Value Reference Range Notes COMPREHENSIVE METABOLIC PANE L (71736) Reviewed date:09/26/2024 04:37:01 PM Interpretation: Performing Lab:[facility], [facility] [id number] [id number] Amando Schmid Notes/Report: NON-FASTING; NON-FASTING; NON-FASTING; NON-FASTING; [...] Reviewed date:09/26/2024 04:37:01 PM Interpretation: Performing Lab:[facility] [id number], [employer][id number] Amando Schmid Notes/Report: NON-FASTING; NON-FASTING; NON-FASTING; NON-FASTING; NON-FAST T3 UPTAKE 25 22-35 % T4 (THYROXINE), TOTAL 8.3 4.9-10.5 mcg/dL FREE T4 INDEX (T7) 2.1 1.4-3.8 TSH 0.91 0.40-4.50 mIU/L MAGNESIUM (622) Reviewed date:09/26/2024 04:37:01 PM Interpretation: Performing Lab:[facility] [address], [employer][id number] Amando Schmid Notes/Report: NON-FASTING; NON-FASTING; NON-FASTING; NON-FASTING; NON-FAST MAGNESIUM 2.5 1.5-2.5 mg/dL HEMOGLOBIN A1c (496) Reviewed date:09/26/2024 04:37:01 PM Interpretation: Performing Lab:[facility] [address] [employer][id number] Amando Schmid Notes/Report: NON-FASTING; NON-FASTING; NON-FASTING; NON-FASTING; [...] [facility] [address], [place] OwenTnmhIS[address] Amando Schmid Notes/Report: NON-FASTING; NON-FASTING; NON-FASTING; NON-FASTING; NON-FAST VITAMIN B12 690 187-2843 pg/mL FOLATE, SERUM 4.3 Reference Range Low: [...] Peripheral circulatory disorder associated with diabetes mellitus (745146939) Type 2 diabetes mellitus with other circulatory complications (E11.59) Active confirmed Problem 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 Problem Essential hypertension (29546647) HTN (hypertension), benign (I10) Active confirmed Problem Morbid obesity (127968932) Morbid obesity (E66.01) Active confirmed Problem Obese class II (187156130477755 ) BMI 37.0-37.9, adult (Z68.37) Active confirmed Problem Obese class II (173784295594725 ) BMI 36.0-36.9,adult (Z68.36) Active confirmed Problem Mood disorder (53388378) Mood disorder (F39) Active confirmed Problem Family history of ischemic heart disease (615285596) FH: heart disease (Z82.49) Active confirmed Problem Tobacco use (588290135) Smokeless tobacco use (Z72.0) Active confirmed Problem Body mass index 35.00 to 39.99 (761630015805726 ) Body mass index [BMI] 38.0-38.9, adult (Z68.38) Active confirmed Problem Laboratory test result abnormal (307926935) Elevated pancreatic enzyme (R74.8) Active confirmed Vital Signs Heart Rate 88 /min 10/09/2024 Temperature 98.2 degrees Fahrenheit 10/09/2024 Blood pressure diastolic 110 mm Hg 10/09/2024 Height 6ft 2in in 10/09/2024 Blood pressure systolic 145 mm Hg 10/09/2024 Weight 295.6 lbs 10/09/2024 BMI 37.95 kg/m2 10/09/2024 Encounters Encounter Location Date Provider Diagnosis [facility] [address] [facility] [address] [place] [address] 07/28/2024 Provider Migration HTN (hypertension), benign I10 and Acute right-sided low back pain without sciatica M54.50 [facility] [place] [address] [address] 09/25/2024 Fortinojanis Hussein Type 2 diabetes mellitus with other circulatory complications E11.59 ; Essential hypertension I10 ; Mood disorder F39 ; Tachycardia R00.0 ; BMI 37.0-37.9, adult Z68.37 and Hospital discharge follow-up Z09 [facility] [address] [address] 10/09/2024 Fortino Besson HTN (hypertension), benign I10 and Mood disorder F39 [facility] [address] [address] 06/29/2024 Consuelo Do HTN (hypertension), benign I10 [facility] [address] [address] 09/25/2024 Consuelo Do Tachycardia R00.0 [facility] [address] [facility] [address] [place] [address] 09/26/2024 Fortino Hussein Assessments Encounter Date Diagnosis (ICD Code) Assessment Notes Treatment Notes Treatment Clinical Notes Section Notes 06/29/2024 HTN (hypertension), benign (ICD-10 - I10) 10/09/2024 HTN (hypertension), benign (ICD-10 - I10) BP improved from last visit; home readings 130s/90s Patient has noticed improvements in headaches Ran out of Hydrochlorothiazide this morning and was unable to take Continue current regimen 10/09/2024 Mood disorder (ICD-10 - F39) Patient has noticed improvements in sleep since starting Vraylar 09/25/2024 Tachycardia (ICD-10 - R00.0) 09/25/2024 Type 2 diabetes mellitus with other circulatory complications (ICD-10 - E11.59) Obtain labs today to monitor Diabetes 09/25/2024 Essential hypertension (ICD-10 - I10) Continue current regimen with addition of Propranolol 20 mg twice daily Monitor BP at home 07/28/2024 HTN (hypertension), benign (ICD-10 - I10) 07/28/2024 Acute right-sided low back pain without sciatica (ICD-10 - M54.50) 09/25/2024 Mood disorder (ICD-10 - F39) Patient [...] BLUE CR[employer] BLUE SHIELD [address] [place] [address] [id number] Wili Auguste Self - patient is the insured Medications Administered Medication Instructions Date of Administration Dosage Notes Dexamethasone 4mg Injection 10/11/2023 4 mg Medical (General) History Medical History History ICD Code hypertension Pre-Diabetes Pancreas enzyme elevation with GLP
--- OUTSIDE RECORDS SUMMARY | 2025-01-28 07:10 | XMS_ITS | Clinical Summary ---
Author Organization Healthcare Address [address] [place] [address] Care Team Providers Care Rock Room Worker Name Role Phone Fortino Hussein MD Primary Care Provider [phone] Allergies No known active allergies Medications methylPREDNISolo ne (Medrol Dospak) 4 MG tablets Take as directed. 1 each 10/28/2024 Active Encounters Date Type Department Care Team Description 10/28/2024 12:23 PM EDT - 10/28/2024 2:26 PM EDT Emergency [facility] Emergency Department [address] [place] [address] Trung Ulloa MD Generalized weakness (Primary Dx); [...] (1 - 3-dose SCD M series) 2013 [id number] Vaccine ( - season) 2024 09/10/2020, 08/20/2020 [...] 1:03 PM Final report signed by Genoveva Onfore MD on 10/28/2024 1:04 PM Trung Ulloa MD IMG XR PROCEDURES Final Re sult * Strep Screen (10/28/2024 12:32 PM EDT) [facility] Streptococcus PCR Result Not Detected Not Detected 10/28/2024 1:58 PM EDT [facility] Swab Pharyngeal structure / Unknown Non-blood Collection / Unknown 10/28/2024 12:32 PM EDT 10/28/2024 12:37 PM EDT Trung Ulloa MD LAB MICROBIOLOGY - GENERAL ORDERABLES Final Result Performing Organization Address City/[facility]/ZIP Co de Phone Number [facility] [address] [place] [address] * ED HIV 1/2 Antibody/Antigen Screen w/Reflex to HIV 1/2 Differentiation (10/28/2024 12:22 PM EDT) [facility] HIV 1 & 2 Antibody/Antigen Screen Non Reactive Non Reactive 10/28/2024 1:20 PM EDT [facility] Comment:Screening for HIV 1 & 2 antibodies, and P24 antigen is NONREACTIVE. No confirmatory testing is required. Blood Venous blood specimen / Unknown Venipuncture / Unknown 10/28/2024 12:22 PM EDT 10/28/2024 12:38 PM EDT Trung Ulloa MD LAB BLOOD ORDERABLES Final Result Performing Organization Address City/[facility]/ZIP Co de Phone Number [facility] [address] [place] [address] * Hepatitis C Antibody - ED (10/28/2024 12:22 PM EDT) Hepatitis C Antibody Negative Negative 10/28/2024 1:20 PM EDT [facility] Blood Venous blood specimen / Unknown Venipuncture / Unknown 10/28/2024 12:22 PM EDT 10/28/2024 12:38 PM EDT Trung Ulloa MD LAB BLOOD ORDERABLES Final Result [facility] [address] [place] [address] * Monospot Test (10/28/2024 12:22 PM EDT) Monospot Negative Negative 10/28/2024 1:35 PM EDT [facility] Blood Venous blood specimen / Unknown Venipuncture / Unknown 10/28/2024 12:22 PM EDT 10/28/2024 12:38 PM EDT Trung Ulloa MD LAB BLOOD ORDERABLES Final Result Performing Organization Address City/[facility]/ZIP Co de Phone Number [facility] [address] [place] [address] * (ABNORMAL) CBC w/diff (10/28/2024 12:22 PM EDT) Pathologist [facility] WBC Count 7.72 3.70 - 10.30 10*3/uL LAB HEMATOLOGY METHOD 10/28/2024 12:29 PM EDT [facility] RBC Count 5.08 4.60 - 6.10 10*6/uL LAB HEMATOLOGY METHOD 10/28/2024 12:29 PM EDT [facility] HGB 13.7 13.7 - 17.5 g/dL LAB HEMATOLOGY METHOD 10/28/2024 12:29 PM EDT [facility] HCT 40.7 40.0 - 51.0 % LAB HEMATOLOGY METHOD 10/28/2024 12:29 PM EDT [facility] Platelet Count 232 155 - 369 10*3/uL LAB HEMATOLOGY METHOD 10/28/2024 12:29 PM EDT [facility] MCV 80 79 - 98 fL LAB HEMATOLOGY METHOD 10/28/2024 12:29 PM EDT [facility] MCH 27.0 26.0 - 32.0 pg LAB HEMATOLOGY METHOD 10/28/2024 12:29 PM EDT [facility] MCHC 33.7 30.7 - 35.5 g/dL LAB HEMATOLOGY METHOD 10/28/2024 12:29 PM EDT [facility] RDW 12.9 11.5 - 14.5 % LAB HEMATOLOGY METHOD 10/28/2024 12:29 PM EDT [facility] MPV 8.2(L) 8.8 - 12.5 fL LAB HEMATOLOGY METHOD 10/28/2024 12:29 PM EDT [facility] nRBC 0.0 <=0.0 per 100 WBCs LAB HEMATOLOGY METHOD 10/28/2024 12:29 PM EDT [facility] Differential Type Automated LAB HEMATOLOGY METHOD 10/28/2024 12:29 PM EDT [facility] Neutrophils % 78 % LAB HEMATOLOGY METHOD 10/28/2024 12:29 PM EDT [facility] Lymphocytes % 14 % LAB HEMATOLOGY METHOD 10/28/2024 12:29 PM EDT [facility] Monocytes % 8 % LAB HEMATOLOGY METHOD 10/28/2024 12:29 PM EDT [facility] Eosinophils % 0 % LAB HEMATOLOGY METHOD 10/28/2024 12:29 PM EDT [facility] Basophils % 0 % LAB HEMATOLOGY METHOD 10/28/2024 12:29 PM EDT [facility] Immature Granulocytes % 0 % LAB HEMATOLOGY METHOD 10/28/2024 12:29 PM EDT [facility] Neutrophils Absolute 6.00 1.60 - 6.10 10*3/uL LAB HEMATOLOGY METHOD 10/28/2024 12:29 PM EDT [facility] Lymphocytes Absolute 1.05(L) 1.20 - 3.90 10*3/uL LAB HEMATOLOGY METHOD 10/28/2024 12:29 PM EDT [facility] Monocytes Absolute 0.59 0.30 - 0.90 10*3/uL LAB HEMATOLOGY METHOD 10/28/2024 12:29 PM EDT [facility] Eosinophils Absolute 0.03 0.00 - 0.50 10*3/uL LAB HEMATOLOGY METHOD 10/28/2024 12:29 PM EDT [facility] Basophils Absolute 0.02 0.00 - 0.10 10*3/uL LAB HEMATOLOGY METHOD 10/28/2024 12:29 PM EDT [facility] Immature Granulocytes Absolute 0.03 0.00 - 0.06 10*3/uL LAB HEMATOLOGY METHOD 10/28/2024 12:29 PM EDT [facility] Blood Venous blood specimen / Unknown Venipuncture / Unknown 10/28/2024 12:22 PM EDT 10/28/2024 12:26 PM EDT Narrative [facility] - 10/28/2024 12:29 PM EDT Therapeutic decision making should be based on absolute values, rather than percentages. Trung Ulloa MD LAB BLOOD ORDERABLES [place] [address] * Thyroid Stimulating Hormone, Plasma (10/28/2024 12:22 PM EDT) Thyroid Stimulating Hormone, Plasma 2.29 0.40 - 4.20 uIU/mL 10/28/2024 1:06 PM EDT [facility] Blood Venous blood specimen / Unknown Venipuncture / Unknown 10/28/2024 12:22 PM EDT 10/28/2024 12:26 PM EDT Trung Ulloa MD LAB BLOOD ORDERABLES [place] [address] * Free T4, Plasma (10/28/2024 12:22 PM EDT) Free T4, Plasma 1.0 0.8 - 1.7 ng/dL 10/28/2024 1:06 PM EDT [facility] Blood Venous blood specimen / Unknown Venipuncture / Unknown 10/28/2024 12:22 PM EDT 10/28/2024 12:26 PM EDT Trung Ulloa MD LAB BLOOD ORDERABLES Final Result [facility] [address] [place] [address] * (ABNORMAL) CMP (10/28/2024 12:22 PM EDT) Glucose, Plasma 102(H) 74 - 99 mg/dL 10/28/2024 1:06 PM EDT [facility] BUN, Plasma 9 7 - 21 mg/dL 10/28/2024 1:06 PM EDT [facility] Creatinine, Plasma 0.80 0.70 - 1.20 mg/dL 10/28/2024 1:06 PM EDT [facility] BUN/Creatinine Ratio 11 10/28/2024 1:06 PM EDT [facility] Sodium, Plasma 136 136 - 145 mmol/L 10/28/2024 1:06 PM EDT [facility] Potassium, Plasma 4.0 3.6 - 4.9 mmol/L 10/28/2024 1:06 PM EDT [facility] Chloride, Plasma 102 97 - 107 mmol/L 10/28/2024 1:06 PM EDT [facility] CO2, Plasma 23 22 - 29 mmol/L 10/28/2024 1:06 PM EDT [facility] Anion Gap 11 6 - 16 mmol/L 10/28/2024 1:06 PM EDT [facility] Total Calcium, Plasma 8.8(L) 8.9 - 10.2 mg/dL 10/28/2024 1:06 PM EDT [facility] Total Protein 7.3 6.3 - 7.9 g/dL 10/28/2024 1:06 PM EDT [facility] Albumin, Plasma 4.1 3.5 - 5.2 g/dL 10/28/2024 1:06 PM EDT [facility] AST, Plasma 20 10 - 50 U/L 10/28/2024 1:06 PM EDT [facility] ALT, Plasma 36 10 - 50 U/L 10/28/2024 1:06 PM EDT [facility] Alkaline Phosphatase, Plasma 64 40 - 115 U/L 10/28/2024 1:06 PM EDT [facility] Total Bilirubin, Plasma 0.4 0.2 - 1.1 mg/dL 10/28/2024 1:06 PM EDT [facility] eGFRcr 116.2 mL/min/1.7 3m*2 10/28/2024 1:06 PM EDT [facility] Comment:Reported eGFRcr in m L/min/1.73m2 is based the CKD-EPI 2020 equation that does not use a race coefficient. Blood Venous blood specimen / Unknown Venipuncture / Unknown 10/28/2024 12:22 PM EDT 10/28/2024 12:26 PM EDT us Trung Ulloa MD LAB BLOOD ORDERABLES Final Result Performing Organization Address City/[facility]/ZIP Co de Phone Number [facility] [address] [place] [address] * EKG now - STAT (adult) (10/28/2024 11:59 AM EDT) EKG DIAGNOSIS CLASS Abnormal MUSE ECG Ventricular Rate 72 BPM MUSE ECG Atrial Rate 72 BPM MUSE ECG NH Interval 204 ms MUSE ECG QRSD Interval 98 ms MUSE ECG QT Interval 368 ms MUSE ECG QTC Interval 402 ms MUSE ECG P Lamont 33 degrees MUSE ECG R Lamont -3 degrees MUSE ECG T Wave Lamont 26 degrees MUSE ECG Diagnosis Normal sinus [...] ECG from Last 3 Months Care Teams Rock Room Worker Relationship Specialty Start Date End Date Fortino Hussein MD [address] [place] [address] [place] [address] PCP - General Internal Medicine 10/28/24
--- OUTSIDE RECORDS SUMMARY | 2025-01-28 07:10 | XMS_ITS | Clinical Summary ---
Author Organization [facility] Address [address] [place], [place] [address] Phone [email or web address] Care Team Providers Care Circuit Walker Name Role Phone Unavailable Primary Care Provider [...] on file Legal Sex Male 9:34 AM ERP TECHNICAL LEAD Gender Identity Not on file Sexual Orientation [...] on patient's age to complete this topic Pneumococcal Immunization Aged Out No longer eligible based [...] Months Results * (ABNORMAL) Spirometry, Complete CPT 71420 (11/15/2024 10:52 AM EDT) FVC 4.32 liters Comment:74% FEV1 3.21 liters Comment:69% FEV1/FVC 74% % Comment:93% Flaquita Menezes MICROBIOLOGY LABORATORY MANAGER PFT ORDERABLES Final Result from Last 3 Months Insurance
== END 2025-01-28 23:59 | disposition home or self-care (01) ==
LOC: RAD 07:08
PROVIDERS: PCP Internal Medicine Adolescent Medicine; Visit Provider Physician Assistant
DX: S83.241A Other tear of medial meniscus, current injury, right knee, initial encounter (principal); S83.511A Sprain of anterior cruciate ligament of right knee, initial encounter
CPT/HCPCS: 73721

== ENCOUNTER 2025-02-08 11:12 | Outpatient (CLI) | payer BC, SELFPAY ==
--- OUTSIDE RECORDS SUMMARY | 2023-10-24 07:00 | XMS_ITS ---
Author Organization [facility] Address [address] [place] [address] Care Team Providers Care Worm Grower Name Role Phone Consuelo Lei Primary Care Provider CONSUELO LEI Unavailable Unavaila Fortino Meng [phone] REASON FOR VISIT 3 month check up Encounters Encounter Location Date Provider Diagnosis [facility] [address] [place] [address] 10/24/2023 Fortino Hussein Plan Of Treatment No Information Progress Notes * Wili AUGUSTEDOB:1985 (39 yo M)Acc No.[id number]:10/24/2023 Progress Notes Patient: Wili PEREZ Provider: Krishna Hussein MD :1985 A ge:38 Y S ex:Male Date:10/24/2023 Address:[address] [address], [phone] Pcp:Consuelo Lei Subjective: * Chief Complaints: * 1 . 3 month check up. * Medical History: Objective: * Vitals: Assessment: Plan: * Treatment: * * Electronic signature of Anirudh Hussein MD FAAP on 02/08/2025 at 11:17 AM EDT Sign off status: Pending * Provider: Krishna Hussein MD Date: 0 10/24/2023 Generated for Ty easton/Cristina/Shiraitting on: 1 11:17 AM EDT
--- OUTSIDE RECORDS SUMMARY | 2023-11-16 10:15 | XMS_ITS ---
Author Organization [facility] Address [address] [place] [address] Care Team Providers Care Child And Family Counselor Name Role Phone Consuelo Lei Primary Care Provider CONSUELO LEISEY Unavailable Unavaila Fortino Meng [phone] REASON FOR VISIT 3 Month F/U Encounters Encounter Location Date Provider Diagnosis [facility] [address] [place] [address] 11/16/2023 Fortino Hussein Plan Of Treatment No Information Progress Notes * Wili AUGUSTEDOB:1985 (39 yo M)Acc No.[id number]:11/16/2023 Progress Notes Patient: Wili PEREZ Provider: Krishna Hussein MD :1985 A ge:38 Y S ex:Male Date:11/16/2023 Address:[address] [place], [place] [id number] Pcp:Consuelo Lei Subjective: * Chief Complaints: * 1 . 3 Month F/U. * Medical History: Objective: * Vitals: Assessment: Plan: * Treatment: * * Electronic signature of Anirudh Hussein MD FAAP on 02/08/2025 at 11:17 AM EDT Sign off status: Pending * Provider: Krishna Hussein MD Date: 0 11/16/2023 Generated for Ty easton/Cristina/Wai on: 1 11:17 AM EDT
--- OUTSIDE RECORDS SUMMARY | 2024-07-11 12:45 | XMS_ITS ---
Author Organization [facility] Address [address] [place] [address] Care Team Providers Care Resist Coater Developer Name Role Phone Consuelo Lei Primary Care Provider [phone] CONSUELO LEI Unavailable Unavaila Fortino Meng [phone] REASON FOR VISIT med ck Encounters Encounter Location Date Provider Diagnosis [facility] [address] [place] [address] 07/11/2024 Fortino Hussein Plan Of Treatment No Information Progress Notes * Wili AUGUSTEDOB:1985 (39 yo M)Acc No.[id number]:07/11/2024 Progress Notes Patient: Wili PEREZ Provider: Krishna Hussein MD :1985 A ge:39 Y S ex:Male Date:07/11/2024 Address:[address] [id number] Pcp:Consuelo Lei Subjective: * Chief Complaints: * 1 . Med ck. * Medical History: Objective: * Vitals: Assessment: Plan: * Treatment: * * Electronic signature of Anirudh Hussein MD FAAP on 02/08/2025 at 11:17 AM EDT Sign off status: Pending * Provider: Krishna Hussein MD Date: 0 07/11/2024 Generated for Ty easton/Cristina/Wai on: 1 11:17 AM JOSEMANUEL
--- OUTSIDE RECORDS SUMMARY | 2024-07-28 17:30 | XMS_ITS ---
Author Organization Mauricio Patel PE D MELINDA Address [address] [facility] 36 [facility] [address] [place] [address] Care Team Providers Care Office Admin Name Role Phone Consuelo Lei Primary Care Provider [phone] CONSUELO LEI Unavailable Unavaila ble Migration, Provider Unavailable Unavailable REASON FOR VISIT [facility] To [facility] Conversion Encounter Medications Medication SIG (Take, Route, [...] Active Encounters Encounter Location Date Provider Diagnosis [facility] PED [facility]DA [address] [facility] 36 [facility] [address] [place] [address] 07/28/2024 Provider Migration HTN (hypertension), benign I10 [...] times a day; Duration: 5 days 10/11/2023 Progress Notes * Wili AUGUSTEDOB:1985 (39 yo M)Acc No.[id number]:07/28/2024 Patient: Wili PEREZ Provider: Nilesh Adame :1985 A ge:39 Y S ex:Male Date:07/28/2024 Address:[address] [place] [address], [id number] Pcp:Consuelo Lei Subjective: * Chief Complaints: * 1 . [facility] Conversion Encounter. * Medical History: Objective: * [...] Electronic signature of Prov ider Migration on 02/08/2025 at 11:18 AM EDT Sign off status: Pending * Provider: Nilesh uribe Migration Date: 0 07/28/2024 Generated for Ty easton/Cristina/eTjakismitting on: 1 11:18 AM EDT
--- OUTSIDE RECORDS SUMMARY | 2024-12-10 12:15 | XMS_ITS ---
Author Organization [facility] Address [address] [place] [address] Care Team Providers Care Pharmaceutical Salesperson Name Role Phone Consuelo Lei Primary Care Provider CONSUELO LEI Unavailable Unavaila Fortino Meng [phone] REASON FOR VISIT med ck, Wellness update Encounters Encounter Location Date Provider Diagnosis [facility] [address] [place] [address] 12/10/2024 Fortino Hussein Plan Of Treatment No Information Progress Notes * Wili AUGUSTEDOB:1985 (39 yo M)Acc No.[id number]:12/10/2024 Progress Notes Patient: Wili PEREZ Provider: Krishna Hussein MD :1985 A ge:39 Y S ex:Male Date:12/10/2024 Address:[address] [place], [place] [id number] Pcp:Consuelo Lei Subjective: * Chief Complaints: * 1 . Med ck. 2. Wellness update. * Medical History: Objective: * Vitals: Assessment: Plan: * Treatment: * * Electronic signature of Anirudh Hussein MD FAAP on 02/08/2025 at 11:17 AM EDT Sign off status: Pending * Provider: Krishna Hussein MD Date: 0 12/10/2024 Generated for Ty easton/Cristina/Wai on: 1 11:17 AM EDT
[2025-02-08 05:54] VITALS: BMI 38.2
--- OUTSIDE RECORDS SUMMARY | 2025-02-08 11:17 | XMS_ITS | Patient Health Record ---
Author Organization [facility] Address [address] [place] [address] Care Team Providers Care Dry Primer Powder Blender Name Role Phone Consuelo Lei Primary Care Provider CONSUELO LEISEY Unavailable Unavaila Fortino Meng Unavailable [phone] Migration, Provider Unavailable Unavailable Allergies No Known Allergies Results Component Value Reference Range Notes THYROID PANEL WITH TSH (7444 ) Reviewed date:09/26/2024 04:37:01 PM Interpretation: Performing Lab:[facility]-[address]moneye[address] [employer], [facility] HomeMljrIO[address] Amando Schmid Notes/Report: NON-FASTING; NON-FASTING; NON-FASTING; NON-FASTING; NON-FAST T3 UPTAKE 25 22-35 % T4 (THYROXINE), TOTAL 8.3 4.9-10.5 mcg/dL FREE T4 INDEX (T7) 2.1 1.4-3.8 TSH 0.91 0.40-4.50 mIU/L COMPREHENSIVE METABOLIC PANE L (98285) Reviewed date:09/26/2024 04:37:01 PM Interpretation: Performing Lab:[facility] LicenseMetricse13[address] [employer] [employer], [facility] HomeSafwGC[address] Amnado Schmid Notes/Report: NON-FASTING; NON-FASTING; NON-FASTING; NON-FASTING; NON-FAST [...] Reviewed date:09/26/2024 04:37:01 PM Interpretation: Performing Lab:[facility] [employer], [employer] GroupTcpqOC[address] Amando Schmid Notes/Report: NON-FASTING; NON-FASTING; NON-FASTING; NON-FASTING; NON-FAST MAGNESIUM 2.5 1.5-2.5 mg/dL HEMOGLOBIN A1c (496) Reviewed date:09/26/2024 04:37:01 PM Interpretation: Performing Lab:[facility] [employer] Ykzx[address] [employer], KewegoHnatIX[address] Amando Schmid Notes/Report: NON-FASTING; NON-FASTING; NON-FASTING; NON-FASTING; [...] Diagnostics-[place] [address], [place] OwenTmmdKF[address] Amando Schmid Notes/Report: NON-FASTING; NON-FASTING; NON-FASTING; NON-FASTING; NON-FAST VITAMIN B12 680 488-0751 pg/mL FOLATE, SERUM 4.3 Reference Range Low: [...] Peripheral circulatory disorder associated with diabetes mellitus (300504813) Type 2 diabetes mellitus with other circulatory complications (E11.59) Active confirmed Problem 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 Problem Essential hypertension (44197425) HTN (hypertension), benign (I10) Active confirmed Problem Morbid obesity (425010267) Morbid obesity (E66.01) Active confirmed Problem Obese class II (641708337960553 ) BMI 37.0-37.9, adult (Z68.37) Active confirmed Problem Obese class II (614385929505091 ) BMI 36.0-36.9,adult (Z68.36) Active confirmed Problem Mood disorder (48853969) Mood disorder (F39) Active confirmed Problem Family history of ischemic heart disease (345087137) FH: heart disease (Z82.49) Active confirmed Problem Tobacco use (351815077) Smokeless tobacco use (Z72.0) Active confirmed Problem Body mass index 35.00 to 39.99 (425946732988618 ) Body mass index [BMI] 38.0-38.9, adult (Z68.38) Active confirmed Problem Laboratory test result abnormal (305086314) Elevated pancreatic enzyme (R74.8) Active confirmed Vital Signs Heart Rate 88 /min 10/09/2024 Temperature 98.2 degrees Fahrenheit 10/09/2024 Blood pressure diastolic 110 mm Hg 10/09/2024 Height 6ft 2in in 10/09/2024 Blood pressure systolic 145 mm Hg 10/09/2024 Weight 295.6 lbs 10/09/2024 BMI 37.95 kg/m2 10/09/2024 Encounters Encounter Location Date Provider Diagnosis [facility] [address] [facility] [address] [place] [address] 07/28/2024 Provider Migration HTN (hypertension), benign I10 and Acute right-sided low back pain without sciatica M54.50 [facility] [address] [address] 09/25/2024 Fortinojanis Hussein Type 2 diabetes mellitus with other circulatory complications E11.59 ; Essential hypertension I10 ; Mood disorder F39 ; Tachycardia R00.0 ; BMI 37.0-37.9, adult Z68.37 and Hospital discharge follow-up Z09 [facility] [address] [address] 10/09/2024 Fortino Besson HTN (hypertension), benign I10 and Mood disorder F39 [facility] [address] [address] 06/29/2024 Consuelo Do HTN (hypertension), benign I10 [facility] [address] [address] 09/25/2024 Consuelo Do Tachycardia R00.0 [facility] [address] [facility] [address] [place] [address] 09/26/2024 Fortino Hussein Assessments Encounter Date Diagnosis [...] [employer]UE CR[employer] BLUE SHIELD [address] [place] [address] [id number] Wili Auguste Self - patient is the insured Medications Administered Medication Instructions Date of Administration Dosage Notes Dexamethasone 4mg Injection 10/11/2023 4 mg Medical (General) History Medical History History ICD Code hypertension Pre-Diabetes Pancreas enzyme elevation with GLP
--- OUTSIDE RECORDS SUMMARY | 2025-02-08 11:17 | XMS_ITS | Clinical Summary ---
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
--- OUTSIDE RECORDS SUMMARY | 2025-02-08 11:17 | XMS_ITS | Patient Health Record ---
Author Organization [facility] Address [address] [place] [address] Care Team Providers Care Patient Relations Representative Name Role Phone NO PCP Primary Care Provider Unavailabl e Allergies No Known Allergies Reason For Referral No Information Medications Medication SIG (Take, Route, Frequency, Duration) Notes Start Date End Date Status Lisinopril 40 MG 1 tab(s) orally once a day Active hydroCHLOROthiazide 50 MG 1 tab(s) orally once a day Active Immunizations Vaccine Route Administration Date Status Comme nts [id number] Quad PFS (0.5mL Admin) 19 y/o & [...] W/U Status Risk Notes Problem Essential hypertension (96936983) Essential hypertension (I10) Active confirmed Problem BMI 30+ - obesity (520681045) BMI 32.0-32.9,adult (Z68.32) Active confirmed Problem Sinusitis (09234597) Sinusitis (J32.9) Active confirmed Plan Of Treatment No Information Insurance Providers Payer Name Payer Address Payer Phone Subscriber Number Group Number Insured Name Patient Relationship to Insured Coverage Start Date Coverage End Date [employer] [place] [address] [address] [place] [id number] Wili Auguste Self - patient is the insured Medical (General) History Medical History History ICD Code HTN
--- NOTE | 2025-02-08 11:46 | ECG_ITS ---
APPROVED REPORT Exam: Resting ECG HR:74 bpm ECG Measurements Heart Rate 74 AXES NM 200 P 53 QRSd 106 QRS 39 QT 377 T 11 QTc 404 Conclusion SINUS RHYTHM NONSPECIFIC T-WAVE ABNORMALITY BORDERLINE ECG UNCONFIRMED REPORT Electronically signed by : Fortino Hussein MD 02/08/2025 21:56:46
[2025-02-08 12:11] LABS: Hematocrit 44.8 % (42.0-52.0); Hemoglobin 15.1 g/dL (14.1-18.0); Immature Granulocytes % 0.1 %; Mean Corpuscular HGB Conc 33.7 g/dL (31.8-35.4); Mean Corpuscular Hemoglobin 27.1 pg (27.0-31.2); Mean Corpuscular Volume 80.3 fl (80-94); Nucleated Red Blood Cells % 0 %; Platelet Count 293 K/mm3 (142-424); Red Blood Count 5.58 M/mm3 (4.60-6.20); Red Cell Distribution Width-SD 36.5 fL; White Blood Count 8.2 K/mm3 (4.8-10.8)
[2025-02-08 12:18] LABS: Chloride 101 mmol/L (98-107); Sodium 138 mmol/L (136-145)
[2025-02-08 12:19] LABS: Potassium 4.2 mmoL/L (3.5-5.1)
[2025-02-08 12:21] LABS: Blood Urea Nitrogen 13 mg/dl (9-20); Creatinine Clearance Estimated 266 mL/min (50-200); Creatinine,Serum 0.70 mg/dl (0.66-1.25); Estimated Glomerular Filt Rate 126 ml/min (>60); GFR (African American) 153 ML/MIN (>60)
[2025-02-08 12:22] LABS: Anion Gap 14.2 mEq/L (5-15); Calcium 9.0 mg/dl (8.4-10.2); Carbon Dioxide 27 mmol/L (22.0-30.0); Glucose 106 mg/dl (74-100)
== END 2025-02-08 23:59 | disposition home or self-care (01) ==
LOC: PREOP 11:14
PROVIDERS: PCP Internal Medicine Adolescent Medicine; Visit Provider Orthopaedic Surgery
DX: Z01.810 Encounter for preprocedural cardiovascular examination (principal); Z01.812 Encounter for preprocedural laboratory examination; R94.31 Abnormal electrocardiogram [ECG] [EKG]
CPT/HCPCS: 80048; 85025; 93005

== ENCOUNTER 2025-02-12 09:23 | Day surgery (SDC) | payer BC, SELFPAY ==
[2025-02-08 13:51] VITALS: BMI 38.2
[2025-02-12] VITALS (9 sets, daily range): BP systolic 106–157; BP diastolic 55–98; PULSE 66–82; RESP 16–20; TEMP 36.3–36.8; O2SAT 93–98; BMI 38.2
[2025-02-12] MEDS: LACTATED RINGERS 1000ML 1,000 ML 100 ML IV (10:01)
[2025-02-12] MEDS: RINGERS SOLUTION,LACTATED 6,000 ML 25 ML IR (12:42)
[2025-02-12] MEDS: BUPIVACAINE 0.25% 30ML VIAL 75 MG (12:42)
--- NOTE | 2025-02-12 13:43 | EXP.OP.NOTE ---
Date of procedure: 02/12/25 Pre-op Diagnosis:: Right knee medial meniscus tear Post-op Diagnosis:: Right knee horizontal tear posterior horn medial meniscus Procedure performed:: Right knee arthroscopy with medial meniscal repair Surgeon:: Rc Doan DO Spray Painter(s):: Quan CESPEDES PHOTOCOPYING MACHINE OPERATOR:: Morenita Mathews Anesthesia: GETA Estimated blood loss (mL): 0 Clinical Note:: 39-year-old male with work-related injury to the knee suffering meniscus tear presented today for surgical intervention with meniscal repair versus partial medial meniscectomy Operative findings:: Horizontal tear posterior horn medial meniscus Operative note:: Patient identified preoperatively. Right knee marked with yes and my initials. Then taken the operating room placed upon operating bed. General anesthesia administered airway secured. Right lower extremity prepped and draped within the knee salvador. Once prepped and draped final operative timeout performed to identify proper patient procedure and extremity. Everyone involved in case agreed. There is no counter indication beginning. Did receive preoperative antibiotics. Marking pen was used to lindsey the bony landmarks of the knee and standard portal sites. Esmarch was used to exsanguinate the extremity and pneumatic tourniquet was inflated to 300 mmHg. Skin knife is used to incise standard anterior lateral portal and blunt with trocar was placed in the patellofemoral joint exchange with a camera. I swept directly into the medial joint line where within the medial joint line and a 18-gauge spinal needle was used to find trajectory straight from the tibial plateau to establish medial portal. This was then exchanged with the probe. Upon probing there was a horizontal tear of the posterior horn of the medial meniscus that was torn posteriorly. Probing the undersurface of this horizontal tear showed no full anterior displacement on the probing but there was a full-thickness tearing that was horizontal in nature. Therefore decision was made for meniscal repair. With proper trajectory of the needle the [employer] novastitch gun was opened and selected. It was preloaded with 2-0 suture. The proper trajectory was selected and the nova stitch gun was placed into the knee with the circumferential stitch anticipated the bottom lever was deployed and stitch was deployed circumferentially around the meniscus both limbs were brought outside the knee and arthroscopic knot-tying was performed the knot pusher was used to push the stitch. The nova stitch was then reloaded and 0 suture was loaded. A another circumferential stitch was then placed around the horizontal tear and the mechanism was deployed both strands were brought outside the knee and arthroscopic knot-tying was performed and the knot pusher was used and both limbs were cut. This gave good repair circumferential compression of the meniscus and additional stitch was then loaded and another pass with a nova stitch gun was performed. Additional suture was loaded and a third pass was performed circumferentially around the horizontal tear to gave good compression of the tear arthroscopic knot was tied and cut suction was brought on to confirm no anterior retraction of the repair which was resolved after stitch compression. Camera was placed intercondylar notch the ACL was seen and intact cameras placed in the lateral joint line lateral meniscus intact lateral cartilage intact back into the medial and lateral gutters which were free of pathology and the patellofemoral joint was free of pathology. Cameras removed the joint was drained skin closed with nylon stitch sterile dressing placed patient be placed in a T ROM brace locked straight for ambulation in recovery. Condition: stable Disposition: PACU Complications:: None apparent
--- NOTE | 2025-02-12 13:47 | EXP.ANES.I ---
[facility] Anesthesia Record Part I Anesthesia Record I Intake, IV Amount: 1,000 Hydration: Adequate Estimated blood loss (mL): 5 Urine output (mL): 0 Blood Pressure: 106/60 SaO2: 94 Pulse Rate: 66 Airway Patency: Patent Respiratory Rate: 18 Temperature: 97.9 F Patient is:: Awake, Drowsy and Nasal O2 Stable to PACU at:: 13:51
--- NOTE | 2025-02-13 13:37 | P.PNANES_ITS ---
[facility] Anesthesia Record Part II Anesthesia Record Part II Discharge Time: 14:11 Destination: Surgical Day Care (OP Surgery) PACU nurse assessment reviewed?: Yes Patient Condition:: Good Anesthesia Complications:: None Swallowing reflex intact?: Yes Airway Patency: Patent Cyanosis?: No Blood Pressure: 133/88 SaO2: 97 Respiratory Rate: 20 Pulse Rate: 77 Temperature: 97.9 F Mental Status: Alert & Oriented Pain level:: 0 Nausea and/or vomitting:: None Intake, IV Amount: 0 Hydration: Adequate
[2025-02-13 13:38] VITALS: BP 133/88; PULSE 77; RESP 20; TEMP 36.6; O2SAT 97
== END 2025-02-12 15:02 | disposition home or self-care (01) ==
PROVIDERS: PCP Internal Medicine Adolescent Medicine; Visit Provider Orthopaedic Surgery
PROC: (CPT 29870; principal; 2025-02-12 11:00)
DX: S83.241A Other tear of medial meniscus, current injury, right knee, initial encounter (principal); X58.XXXA Exposure to other specified factors, initial encounter; Y93.64 Activity, baseball; Z79.899 Other long term (current) drug therapy
CPT/HCPCS: 29882; 96374; 97760; J0665; J0690; J1100; J1200; J1596; J2003; J2250; J2371; J2405; J2704; J3010; J7120

== ENCOUNTER 2025-03-28 08:05 | Outpatient (RCR) | payer BC, SELFPAY ==
--- NOTE | 2025-03-28 08:39 | HMH.PTOPEV ---
PT Evaluation Rehab PT Outpatient Evaluation Start: 03/28/25 08:07 Freq: Status: Active Protocol: Document 03/28/25 08:07 GHADA (Rec: 03/28/25 08:39 GHADA [id number]) E-signed By Andriy Erwin, PT Outpatient Therapy Subjective History Subjective History Pt is a 40 yom who is referred to [facility] outpatient PT s/p R arthroscopic medial meniscectomy performed on 02/12. Pt reports that he was in a T-Rom brace with his knee locked into extension until 03/25. Pt reports that he works at [employer] and is currently on Short Term Disability. Pt reports that he and Dr. Doan are eyeing a return to work at the start of April. Pt reports difficulty with stairs, walking longer distances, squatting. Pt reports that he was given a protocol from Dr. Doan but reports that he forgot to bring it to today. PMH: HTN Occupation: [employer] New diagnosis of No cancer in past 12 months? Chief Complaint Pain Symptom Type Sharp Symptoms Relieved By Nothing Symptoms Aggravated Standing,Walking,Lifting By Prior Functional None Limitations Current Functional Lifting,Standing,Squatting,Walking,Stairs Limitations Symptom Description Intermittent,Activity Dependent Level of pain today 0 (0-10) Pain scale - at its 0 best (0-10) Pain scale - at its 5 worst (0-10) Hip/Knee Eval Gait Observation General Gait Pattern Antalgic Gait,Decrease Weight Bear (R),Decrease Stride Observation Lngth (L) Palpation Tenderness right Knee Palpation Tenderness Finding Knee Palpation 2/4 to anterior knee Overall Comment MMT Hip Flexion Strength 5 Normal Grade Hip Abduction 4 Good Strength Grade Knee Extension 4 Good Strength Grade Knee Flexion 2+ Poor+ Strength Grade ROM Knee Extension 0 Active Range of Motion (degrees) Knee Flexion Active 90 Range of Motion ( degrees) Lower Extremity Functional Index Activities Today, do you or would you have any difficulty at all with: a.Any of your usual A little bit of difficulty work, housework or school activities b. Your usual Extreme difficulty or unable to perform activity hobbies, recreational or sporting activities c. Getting into or A little bit of difficulty out of the bath d. Walking between No difficulty rooms e. Putting on your Moderate difficulty shoes or socks f. Squatting Quite a bit of difficulty g. Lifting an object No difficulty , like a bag of groceries from the floor h. Performing light A little bit of difficulty activities around your home i. Performing heavy Quite a bit of difficulty activities around your home j. Getting into or Moderate difficulty out of a car k. Walking 2 blocks A little bit of difficulty l. Walking a mile Moderate difficulty m. Going up or down Moderate difficulty 10 stairs (about 1 flight of stairs) n. Standing for 1 Moderate difficulty hour o. Sitting for 1 No difficulty hour p. Running on even Extreme difficulty or unable to perform activity ground q. Running on uneven Extreme difficulty or unable to perform activity ground r. Making sharp Extreme difficulty or unable to perform activity turns while running fast s. Hopping Extreme difficulty or unable to perform activity t. Rolling over in A little bit of difficulty bed LEFI Score Lower Extremity 39 Functional Index Score Outpatient Therapy Assessment Impairments Problems/ Palpation Tenderness,Impaired Range of Motion,Impaired Impairmments Strength,Impaired Gait Pattern,Impaired Walking, Impaired Stair Climbing,Impaired Squatting,Impaired Work Activities,Subjective C/O Pain,Impaired Self Care/ Self Management Prognosis Rehab Potential Good Comment w HEP compliance Clinical Impression Consistent with Yes Diagnosis Consistent with s/p R medial meniscus repair PT Patient Goals PT Patient Goals PT Short Term In 2 weeks: Patient Goals 1. Patient will improve R knee ROM to 0-100 in order to demonstrate improvements in functional movement patterns and improved gait mechanics. 2. Patient will improve R hip/knee strength to 4/5 grossly upon MMT to demonstrate functional strength improvements and to assist with functional movement patterns. 3. Patient will improve LEFS score to 49/80 in order to demonstrate overall improvement in QOL and improvement with normal daily activities. 4. Pt will demonstrate HEP compliance by completing prescribed HEP at least 1x/daily. 5. Pt will report a 48 hr pain average of 5/10 in order to demonstrate an improved QOL and overall functional improvement. 7. Pt will be able to walk with symmetrical WB and step length to demonstrate independence with in-home and community mobility. PT Shelter Patient In 4 weeks: Goals 1. Patient will improve R knee ROM to 0-125 in order to demonstrate improvements in functional movement patterns and improved gait mechanics. 2. Patient will improve R hip/knee strength to 5/5 grossly upon MMT to demonstrate functional strength improvements and to assist with functional movement patterns. 3. Patient will improve LEFS score to 65/80 in order to demonstrate overall improvement in QOL and improvement with normal daily activities. 4. Patient will be able to stand/walk for 60 minutes at one time to demonstrate independence with community activities such as grocery shopping. 5. Pt will be able to ascend/descend a flight of stairs with a reciprocal stepping pattern to demonstrate independence with in-home and community mobility. 6. Pt will report a 48 hr pain average of 2-3/10 in order to demonstrate an improved QOL and overall functional improvement. 7. Pt will return to work with no residual pain or deficits. Outpatient Therapy Plan of Care Treatment Plan May Include Therapeutic Exercise Yes Including Home Exercise Program Manual Therapy Yes Techniques Neuromuscular Re- Yes education Therapeutic Yes Activities to Return to Previous Functional/Work Level Gait Training Yes Thermal Modalities Yes Electrical Yes Stimulation Manual Lymphatic Yes Drainage Eval/Re-Eval Yes Frequency Times per week 2 Duration Number of Weeks 4 Addendums This patient is a No candidate for social or vocational rehab ? Patient/Guardian Yes verbally acknowledges understanding of treatment program and consents to further treatment? Patient/Guardian Yes verbally acknowledges understanding of diagnosis, prognosis and goals for treatment? Eval Complexity PT Charges 69897 - Low Complexity Shoulder/Elbow Eval Shoulder Objective Measurements Elbow Objective Measurements PHYSICIAN CERTIFICATION: I certify the specified therapy services for Wili Auguste are required, authorized, and reviewed every 30 days.
== END 2025-03-28 23:59 | disposition home or self-care (01) ==
LOC: PT 08:05
PROVIDERS: PCP Internal Medicine Adolescent Medicine; Visit Provider Orthopaedic Surgery
DX: S83.241D Other tear of medial meniscus, current injury, right knee, subsequent encounter (principal); M23.91 Unspecified internal derangement of right knee; X58.XXXD Exposure to other specified factors, subsequent encounter
CPT/HCPCS: 97161